=== PATIENT | female | born 1995 | race Caucasian/White ===

== ENCOUNTER 2021-10-05 21:16 | Emergency (ER) | payer MEDICARE, MEDICAID, SELFPAY ==
--- NOTE | ~2021-10-05 | US_ITS ---
EXAMINATION: US OBSTETRICAL ULTRASOUND CLINICAL INFORMATION: Lower abdominal pain, bleeding, rule out ectopic. HCG 5411. Last menstrual period unknown. COMPARISON: CT abdomen and pelvis dated from 11/27/2018. LMP: Unknown. TECHNIQUE: Ultrasound of the maternal pelvis is performed using transabdominal and transvaginal transducers. Transvaginal imaging is performed due to inadequate visualization transabdominally. M-mode Doppler is also performed. FINDINGS: There is a single intrauterine gestational sac with visible yolk sac and no identifiable pole. The gestational sac measures 0.7 cm compatible with a gestational age of 5 weeks and 2 days. There is no significant subchorionic hemorrhage or hematoma. MATERNAL ADNEXA: The right maternal ovary measures 3.1 x 2.2 x 1.9 cm. The left maternal ovary measures 2.6 x 1.4 x 1.8 cm. There is no significant maternal adnexal mass. No maternal pelvic ascites. US/US OB <= 14 weeks fetus IMPRESSION: Single intrauterine gestational sac with a visible yolk sac corresponding to a gestational age of 5 weeks and 2 days. No pole is identified, likely due to early gestational age. Recommend correlation with quantitative hCG and close attention on follow-up. No adnexal masses. No free fluid.
--- NOTE | ~2021-10-05 | US_ITS ---
EXAMINATION: US OBSTETRICAL ULTRASOUND CLINICAL INFORMATION: Lower abdominal pain, bleeding, rule out ectopic. HCG 5411. Last menstrual period unknown. COMPARISON: CT abdomen and pelvis dated from 11/27/2018. LMP: Unknown. TECHNIQUE: Ultrasound of the maternal pelvis is performed using transabdominal and transvaginal transducers. Transvaginal imaging is performed due to inadequate visualization transabdominally. M-mode Doppler is also performed. FINDINGS: There is a single intrauterine gestational sac with visible yolk sac and no identifiable pole. The gestational sac measures 0.7 cm compatible with a gestational age of 5 weeks and 2 days. There is no significant subchorionic hemorrhage or hematoma. MATERNAL ADNEXA: The right maternal ovary measures 3.1 x 2.2 x 1.9 cm. The left maternal ovary measures 2.6 x 1.4 x 1.8 cm. There is no significant maternal adnexal mass. No maternal pelvic ascites. US/US OB transvaginal IMPRESSION: Single intrauterine gestational sac with a visible yolk sac corresponding to a gestational age of 5 weeks and 2 days. No pole is identified, likely due to early gestational age. Recommend correlation with quantitative hCG and close attention on follow-up. No adnexal masses. No free fluid.
[2021-10-05 21:26] VITALS: BP 139/67; PULSE 93; RESP 18; TEMP 36.8; O2SAT 98; BMI 37.8
--- NOTE | 2021-10-05 22:05 | ED_ITS ---
HPI - General Chief complaint: General Medical Stated complaint: Cramping/Preg Time Seen by Provider: 10/05/21 21:43 Source: patient Mode of arrival: ambulatory Limitations: no limitations History of Present Illness HPI Narrative: 26-year-old female presents to the ER with lower abdominal cramping that started yesterday, lower back pain for the last 3 days and new onset of bright red vaginal spotting that started with wiping only today. She states she tested positive for 1 week ago today. She has no idea when her last menstrual cycle was. Her 4 other pregnancies were not complicated and went well. She has negative blood type. She denies urinary symptoms, fever, chills. She did have nausea and vomiting earlier today. Her lower abdominal pain is described as menstrual cramping and it comes and goes. MD Complaint: vaginal bleeding Onset (ago): day(s) (3) Pain Consistency: intermittent Location: pelvis Severity: moderate Severity scale (1-10): 6 Quality: Cramping Relieving factors: none Exacerbating factors: none Associated symptoms: nausea, vomiting and vaginal bleeding Vaginal discharge: none Vaginal bleeding: light Patient : Yes Number of Weeks : unknown OB History - Previous Pregnancies: no complications care: followed by OB Related Data : 5 Para: 4 Total number of abortions (spontaneous and elective): 0 Allergies Allergy/AdvReac Type Severity Reaction Status Date / Time No Known Allergies Allergy Verified 10/05/21 21:26 [No Known Allergies*] Review of Systems Review of Systems: Constitutional: No Fever, No Chills ENT/Mouth: No sore throat, No Rhinorrhea, No Swallowing Difficulty Cardiovascular: No Chest Pain, No SOB Gastrointestinal: + Nausea, + Vomiting, No Diarrhea, + abdominal Pain, No Hematochezia, No Melena Genitourinary: No Dysuria, No Urinary Frequency, No Hematuria, +vaginal spotting Musculoskeletal: + joint pain, + Myalgias Skin: No Skin Lesions, No rash Neuro: No Weakness, No Numbness, No Dizziness, No Headache Psych: + Anxiety/Panic, No Depression Heme/Lymph: No Bruising, No Lymphadenopathy Endocrine: No Polyuria, No Polydipsia PMFSH Past Medical History : 5 Para: 4 Total number of abortions (spontaneous and elective): 0 Social History Social History Patient Tobacco Use Status: Never used Tobacco Use of substances other than those prescribed or required for medical reasons: No Advance Directives: No Advance Directives Information Provided: No Patient : Yes Physical Exam Vital Signs: Vital Signs: Last Vital Signs Temp 99.1 F 10/05/21 22:13 Pulse 79 10/05/21 22:13 Resp 20 10/05/21 22:13 BP 124/82 10/05/21 22:13 Pulse Ox 99 10/05/21 22:13 Body Mass Index 37.8 Appearance: Alert. Oriented X3. No acute distress. Eyes: Pupils equal, round and reactive to light. ENT: Pharynx normal. Neck: Normal inspection. Neck supple. CVS: Normal heart rate and rhythm. Pulses normal. Respiratory: No respiratory distress. Breath sounds normal. Abdomen: Soft and nontender. +BS x4. Pelvic exam deferred Skin: Skin warm and dry. Normal skin color. Normal skin turgor. No rashes. Extremities: No lower extremity edema. Neuro: Oriented X 3. No motor deficit. No sensory deficit. Course Course Course Narrative: 26 y/o who is ?5-7 weeks presents to the ER with low back pain x3 days, lower abdominal cramping and new onset of red vaginal spotting that started today when wiping only. Will get HCG, labs, and pelvic U/S to r/o ectopic. Will likely need rhogam. Reevaluation(s) Reevaluation #1: HCG 5400. Pelvic US showed single IUP at 5 w 2 d gestation. No bleeding with transvaginal examination. Patient is painfree. UA negative. At this time patient is stable for d/c home with close outpatient follow up, monitoring of symptoms at home and plan to return if symptoms worsen. Patient counseled and agrees with plan. MDM - OB/Uterine Contractions Lab Data Result diagrams: 10/05/21 22:11 10/05/21 22:11 Labs: Lab Results 10/05/21 10/05/21 10/05/21 Range/Units 22:11 22:11 22:11 WBC 9.2 (4.8-10.8) X10*3/uL RBC 3.82 L (4.20-5.50) X10*6/uL Hgb 10.9 L (12.0-16.0) g/dl Hct 34.2 L (37.0-47.0) % MCV 89.5 (80.0-98.0) fL MCH 28.5 (27.0-33.0) pg MCHC 31.9 (31.0-35.0) g/dl RDW 16.0 (11.0-16.0) % Plt Count 328 (160-400) X10*3/uL MPV 10.7 (9.4-12.3) fL Immature Gran % (Auto) 0.1 (0.0-0.4) % Neut % (Auto) 61.1 (45-73) % Lymph % (Auto) 29.8 (20-40) % Russell % (Auto) 4.9 (2-11) % Eos % (Auto) 3.7 (0-4) % Baso % (Auto) 0.4 (0-2) % Lymph # (Auto) 2.7 (1.2-4.9) X10*3/uL Russell # (Auto) 0.5 (0.1-1.2) X10*3/uL Eos # (Auto) 0.3 (0.0-0.4) X10*3/uL Baso # (Auto) 0.0 (0.0-0.2) X10*3/uL Abs Immat Gran (auto) 0.01 (0.00-0.03) X10*3/uL Absolute Neuts (auto) 5.6 (2.0-8.3) x10*3/uL Absolute Nucleated RBC 0.000 (0.0-0.012) X10*3/uL Nucleated RBC % (auto) 0.0 (0.0-0.2) /100WBC Sodium 140 (135-145) mmol/L Potassium 3.9 (3.3-5.1) mmol/L Chloride 106 (96-108) mmol/L Carbon Dioxide 26 (22-29) mmol/L Anion Gap 12 (12-20) BUN 10 (9-16) mg/dL Creatinine 0.72 (0.5-1.4) mg/dL Estim Creat Clear Calc 132.4 Estimated GFR > 60 Random Glucose 108 (60-115) mg/dL Calcium 9.4 (8.4-10.2) mg/dL Magnesium 1.8 (1.6-2.6) mg/dL Beta HCG, Quant 5411 mIU/mL Blood Type O Negative Procedures Perimortem Number of Weeks : unknown Discharge Plan Discharge Clinical Impression: , threatened Patient Disposition: Home, Self-Care Instructions: Threatened Miscarriage (ED) Additional Instructions: Your hormone (HCG) was 5411. This is consistent with at 5-7 weeks gestation. Your ultrasound showed a singe fetus in the uterus, estimated at 5 weeks 2 days. You most likely are experiencing implantation bleeding, which is normal. If you have continued bleeding and pain there is concern for possible miscarriage. Recommend folllowing up with your [employer]PERATOR HELPER - you may need to get your hormone repeated to make sure that it is trending upward.
[2021-10-05 22:13] VITALS: BP 124/82; PULSE 79; RESP 20; TEMP 37.3; O2SAT 99
[2021-10-05 22:16] LABS: MANUAL DIFF FLAG NO
[2021-10-05 22:17] LABS: Basophils Percent Auto 0.4 % (0-2); Eosinophils Absolute Auto 0.3 X10*3/uL (0.0-0.4); Eosinophils Percent Auto 3.7 % (0-4); Hematocrit 34.2 % (37.0-47.0); Hemoglobin 10.9 g/dl (12.0-16.0); Imm Gran Abs Auto 0.01 X10*3/uL (0.00-0.03); Imm Gran Pct Auto 0.1 % (0.0-0.4); Lymphocytes Absolute Auto 2.7 X10*3/uL (1.2-4.9); Lymphocytes Percent Auto 29.8 % (20-40); Mean Corpuscular HGB Conc 31.9 g/dl (31.0-35.0); Mean Corpuscular Hemoglobin 28.5 pg (27.0-33.0); Mean Corpuscular Volume 89.5 fL (80.0-98.0); Mean Platelet Volume 10.7 fL (9.4-12.3); Monocytes Absolute Auto 0.5 X10*3/uL (0.1-1.2); Monocytes Percent Auto 4.9 % (2-11); Neutrophils Absolute Auto 5.6 x10*3/uL (2.0-8.3); Neutrophils Percent Auto 61.1 % (45-73); Platelet Count 328 X10*3/uL (160-400); Red Blood Count 3.82 X10*6/uL (4.20-5.50); White Blood Count 9.2 X10*3/uL (4.8-10.8)
[2021-10-05 22:31] LABS: Anion Gap 12 (12-20); Blood Urea Nitrogen 10 mg/dL (9-16); Calcium 9.4 mg/dL (8.4-10.2); Carbon Dioxide 26 mmol/L (22-29); Chloride 106 mmol/L (96-108); Creatinine Clr Calc Pharmacy 132.4; Estimated Glomerular Filt Rate > 60; Glucose Random 108 mg/dL (60-115); Magnesium 1.8 mg/dL (1.6-2.6); Potassium 3.9 mmol/L (3.3-5.1); Sodium 140 mmol/L (135-145)
[2021-10-05 22:38] LABS: HCG Quantitative 5411 mIU/mL
[2021-10-05] MEDS: Rho(D) Immune Globulin 300 MCG SYRINGE IM (23:49)
[2021-10-06 00:08] LABS: Appearance Urine CLEAR; Color Urine YELLOW; Glucose Urine UA NEG (NEG); Leukocyte Esterase Urine NEG (NEG); Nitrite Urine NEG (NEG); Specific Gravity - Urine 1.025 (1.005-1.025); Urine Blood NEG (NEG); Urine Ketones NEG (NEG); Urine Protein NEG (NEG-TRACE)
== END 2021-10-06 00:19 | disposition home or self-care (01) ==
PROVIDERS: Physician Assistant; Emergency Provider Student in an Organized Health Care Education/Training Program
DX: O20.0 Threatened abortion (principal); Z3A.01 Less than 8 weeks gestation of pregnancy
CPT/HCPCS: 36415; 76801; 76817; 80048; 81003; 83735; 84702; 85025; 86900; 86901; 96372; 99284; J2790

== ENCOUNTER 2024-01-30 17:45 | Inpatient (IN) | payer MEDICARE, MEDICAID, SELFPAY ==
--- NOTE | ~2024-01-30 | CT_ITS ---
EXAMINATION: CT ABDOMEN AND PELVIS WITH CONTRAST CLINICAL INFORMATION: right buttock pain, s/p plastic surgery, WBC 24 Additional Information: pain after gluteal surgery, ?abscess, COMPARISON: CT scan abdomen pelvis November 27, 2018 TECHNIQUE: Multidetector volumetric images were obtained from the superior aspect of the liver through the pubic symphysis following administration 85 mL of Omnipaque 350 intravenous contrast. Sagittal and coronal reformatted images were obtained on the technologist's workstation. Oral contrast: No This CT examination was performed using dose optimization techniques as appropriate, variously including the following: *Automated exposure control *Adjustment of mA and/or kV according to patient size (this includes techniques or standardized protocols for targeted exams where dose is matched to indication/reason for exam; i.e. extremities or head) *Use of iterative reconstruction technique DLP: 749 mGy-cm FINDINGS: LUNG BASES: The visualized lung bases are unremarkable. LIVER, GALLBLADDER, AND BILIARY TREE: The liver is normal in size, shape, and attenuation. No focal hepatic lesion or biliary ductal dilatation is present. The gallbladder is unremarkable with no evidence of radiopaque gallstones, gallbladder wall thickening, or obvious pericholecystic inflammatory changes. PANCREAS: Unremarkable. SPLEEN: Unremarkable. ADRENAL GLANDS: Unremarkable. KIDNEYS AND URETERS: The kidneys are normal in size, shape, and attenuation. No hydronephrosis, hydroureter, or calculi seen. No perinephric stranding. BLADDER: Unremarkable. GASTROINTESTINAL TRACT: The small and large bowel are unremarkable. The appendix is nonvisualized. ABDOMINAL WALL: Edema and fluid at the anterior abdominal wall. At the anterior ventral wall there is fat surrounded by fluid deep to the abdominal wall musculature is likely postsurgical. Correlate with history. . There is edema and fluid at the subcutaneous tissue along midline back pain extending into the subcutaneous tissue in the right gluteal region. No drainable fluid collections. LYMPH NODES: Normal. VASCULAR: Unremarkable. PELVIC VISCERA: Unremarkable. OSSEOUS STRUCTURES: Unremarkable. CT/CT abdomen pelvis w IV con IMPRESSION: Postsurgical changes of the anterior abdominal wall. There is edema and fluid at the anterior abdominal wall deep to the abdominal wall musculature. There is edema and fluid at the subcutaneous tissue along midline back pain extending into the subcutaneous tissue in the right gluteal region. No drainable fluid collections. Fleischner guidelines were followed.
[2024-01-30 17:55] VITALS: BP 112/67; PULSE 106; RESP 14; TEMP 36.6; O2SAT 98; BMI 25.7
--- NOTE | 2024-01-30 17:57 | ED.GENADULT ---
HPI - General Adult General Chief complaint: Abdominal Pain Stated complaint: surgery : fever, chills, infection? Time Seen by Provider: 01/30/24 21:02 History of Present Illness HPI narrative: Patient is a 28-year-old female who had plastic surgery in the [place] approximately 3 weeks ago. She had abdominoplasty as well as fat transfers to her buttocks. The patient says that she was doing well until about 2 days ago when she developed nausea and vomiting and chills. She says that her daughter also seemed to have a stomach bug and so at 1st she thought she simply had a stomach bug. She subsequently developed pain in the region of the right buttock and thigh and some drainage from her gluteal fold. At that point she started to be concerned she might be having some complication of her surgery. She called her primary care doctor today and described her symptoms. Her primary care doctor advised her to come to the emergency room. She has had chills but no definite fever. Related Data Home Medications Medication Instructions Recorded Confirmed acetaminophen 500 mg tablet 1,000 mg PO Q6H PRN Pain 01/31/24 01/31/24 Allergies Allergy/AdvReac Type Severity Reaction Status Date / Time No Known Allergies Allergy Verified 10/05/21 21:26 [No Known Allergies*] Review of Systems Review of Systems: Yes all other systems are reviewed and are negative [facility] Past Medical History Medical History (Updated 02/02/24 @ 08:30 by Ricky Hadley MD) Abscess of right buttock Social History Social History Household Members: Family Housing: House Do you presently have visiting nurse or other home services: No Patient Tobacco Use Status: Never used Tobacco Second Hand Smoke Exposure: No service: No Physical Exam ED Vital Signs: Vital Signs - 24 hr 01/30/24 17:55 01/30/24 22:13 01/31/24 00:24 Temperature 98 F 101.0 F H 99.8 F Pulse Rate 106 H 120 H Pulse Rate [Monitor] Respiratory Rate 14 20 Blood Pressure 112/67 105/63 Pulse Oximetry 98 97 Oxygen Delivery Method Room Air Room Air 01/31/24 00:33 01/31/24 00:33 Temperature 99.0 F Pulse Rate 91 Pulse Rate [Monitor] 115 H Respiratory Rate 18 Blood Pressure 117/75 Pulse Oximetry 97 Oxygen Delivery Method Room Air BMI result Body Mass Index 25.7 Const Other: The patient is awake and alert. She is pleasant and cooperative. She does not appear obviously toxic but seemed uncomfortable with movements. HENMT Other: The face is symmetrical. ?Mucous membranes moist. Eyes Other: Pupils are round equal, conjunctivae are clear, extraocular movements intact Neck Other: Moving her neck easily, neck is benign, no swelling Resp Effort & Inspection: normal respiratory effort Auscultation: clear to auscultation bilaterally Cardio Rate: regular rate Rhythm: regular rhythm Heart sounds: S1 normal heart sound present and S2 normal heart sound present GI Other: The patient has a surgical scar in the right lower abdomen. The abdomen on the whole seemed soft and nontender. Skin Other: The patient has surgical scars in the abdomen which look healthy. Neuro Other: The patient is awake, alert, appropriate, normal mental status. Moving all 4 extremities symmetrically. Grossly neurologically intact. Extrem Other: The patient had a large area of erythema and significant tenderness in the region of the right lower buttock extending into the posterior aspect of the right upper thigh. The mid and lower thigh was nontender and benign. Course Course Course Narrative: This is a rapid medical exam: Additional HPI, ROS, PE not included below will be deferred to primary provider. Abdominoplasty, liposuction in [facility] [place] on 01/08/24. Swelling to right buttock since yesterday Medications Administered Generic Name Dose Route Start Last Admin Trade Name Freq PRN Reason Stop Dose Admin Acetaminophen 975 mg 01/31/24 01:45 02/05/24 08:41 Acetaminophen 325 Mg Tablet PO 975 mg Q6H PRN Administration Pain, Moderate(Pain Scale 4-6) Heparin Sodium (Porcine) 5,000 unit 01/31/24 09:00 02/05/24 00:41 Heparin Sodium,Porcine 5,000 Unit/Ml Vial SUBCUT 5,000 unit Q8H SUNITHA Administration Hydromorphone HCl 0.5 mg 01/31/24 06:22 02/04/24 21:02 Hydromorphone Hcl 0.5 Mg/0.5 Ml Syringe IVPUSH 0.5 mg Q4H PRN Administration Pain, Severe (Pain Scale 7-10) Protocol Piperacillin Sod/Tazobactam 50 mls @ 100 mls/hr 01/31/24 04:00 02/05/24 04:35 Sod 3.375 gm/ Sodium Chloride IV Infused Q6H SUNITHA Infusion Vancomycin HCl 1,000 mg/ 270 mls @ 270 mls/hr 02/04/24 05:00 02/05/24 06:47 Sodium Chloride IV Infused Q8H SUNITHA Infusion Ondansetron HCl 4 mg 01/31/24 01:51 02/04/24 14:23 Ondansetron Hcl 4 Mg/2 Ml Vial IVPUSH 4 mg Q6H PRN Administration Nausea and Vomiting Oxycodone HCl 10 mg 02/02/24 07:14 02/04/24 14:23 Oxycodone Hcl Immed Release 5 Mg Tablet PO 10 mg Q4H PRN Administration Pain, Moderate(Pain Scale 4-6) Sodium Chloride 3 ml 01/31/24 08:00 02/04/24 23:32 0.9 % Sodium Chloride Flush 3 Ml Syringe IVFLUSH 3 ml QSHIFT [facility] Administration Discontinued Medications Generic Name Dose Route Start Last Admin Trade Name Freq PRN Reason Stop Dose Admin Acetaminophen 975 mg 01/30/24 23:21 01/30/24 23:32 Acetaminophen 325 Mg Tablet PO 01/30/24 23:22 975 mg ONCE ONE Administration Acetaminophen 650 mg 02/01/24 16:08 02/01/24 17:51 Acetaminophen 325 Mg Tablet PO 02/01/24 16:09 650 mg ONCE ONE Administration Hydromorphone HCl 1 mg 01/30/24 21:42 01/30/24 22:36 Hydromorphone Hcl 1 Mg/Ml Syringe IVPUSH 01/30/24 21:43 1 mg ONCE ONE Administration Protocol Hydromorphone HCl 1 mg 01/30/24 23:21 01/30/24 23:31 Hydromorphone Hcl 1 Mg/Ml Syringe IVPUSH 01/30/24 23:22 1 mg ONCE ONE Administration Protocol Hydromorphone HCl 0.5 mg 02/02/24 14:23 02/02/24 15:35 Hydromorphone Hcl 0.5 Mg/0.5 Ml Syringe IVPUSH 02/02/24 20:23 0.5 mg Q5M PRN Administration Pain, Severe (Pain Scale 7-10) Protocol Sodium Chloride 1,000 mls @ 999 mls/hr 01/30/24 21:15 01/31/24 03:25 Ns IV 01/30/24 22:15 Infused .Q1H1M SUNITHA Infusion Piperacillin Sod/Tazobactam 100 mls @ 200 mls/hr 01/30/24 21:56 01/31/24 03:25 Sod 4.5 gm/ Sodium Chloride IV 01/30/24 22:25 Infused ONCE ONE Infusion Vancomycin HCl 1,000 mg/ 535 mls @ 267.5 mls/hr 01/30/24 21:57 01/31/24 03:25 Vancomycin HCl 750 mg/ Sodium IV 01/30/24 23:56 Infused Chloride ONCE ONE Infusion Lactated Ringer's 1,000 mls @ 999 mls/hr 01/31/24 01:00 01/31/24 02:30 Lr IV 01/31/24 02:00 Infused .Q1H1M SUNITHA Infusion Sodium Chloride 1,000 mls @ 100 mls/hr 01/31/24 01:45 02/02/24 08:48 Ns IVCONT Infused .Q10H SUNITHA Infusion Vancomycin HCl 1,250 mg/ 250 mls @ 166.667 mls/hr 01/31/24 09:00 01/31/24 21:24 Sodium Chloride IV Infused Q12H SUNITHA Infusion Vancomycin HCl 1,250 mg/ 250 mls @ 166.667 mls/hr 02/01/24 08:00 02/02/24 01:25 Sodium Chloride IV Infused Q8H SUNITHA Infusion Sodium Chloride 100 mls @ 100 mls/hr 02/01/24 13:48 02/01/24 21:38 Ns IV 02/01/24 14:47 Infused ONCE ONE Infusion Vancomycin HCl 1,000 mg/ 270 mls @ 270 mls/hr 02/02/24 08:00 02/03/24 16:18 Sodium Chloride IV Infused Q8H SUNITHA Infusion Iron Sucrose 100 mg/ Sodium 55 mls @ 220 mls/hr 02/02/24 14:00 02/02/24 18:33 Chloride IV 02/02/24 14:14 Infused ONCE ONE Infusion Influenza Virus Vaccine 0.5 ml 01/31/24 06:17 01/31/24 06:23 Flu Vacc [id number](6mos Up)/Pf 60 Mcg/0.5 Ml Syringe IM 01/31/24 06:18 Not Given .ONCE ONE Iohexol 85 ml 01/30/24 22:53 01/30/24 22:54 Iohexol 350 Mg/Ml 100 Ml Infus..Btl IV 01/30/24 22:54 85 ml ONCE ONE Administration Ondansetron HCl 4 mg 01/30/24 17:58 01/31/24 03:24 Ondansetron Odt 4 Mg Tab.Rapdis TRANSLINGU 01/30/24 17:59 Not Given ONCE ONE Oxycodone HCl 5 mg 01/31/24 01:51 01/31/24 04:57 Oxycodone Hcl Immed Release 5 Mg Tablet PO 5 mg Q6H PRN Administration Pain, Severe (Pain Scale 7-10) Medical Decision Making Medical Decision Making [facility] Narrative: Patient is a very pleasant and generally healthy 28-year-old who seems to have developed a fairly late complication to cosmetic surgery done 3 weeks ago in the [place]. Specifically she seems to have an area of significant redness and tenderness in the region of the right buttock. She has a very high white count and C-reactive protein but clinically she looks well and her lactate is normal. Blood cultures were drawn. She was started on vancomycin and Zosyn. CT scan shows findings of edema that I suspect is consistent with the cellulitis but no drainable collection was described. The patient was therefore admitted to the hospitalist service. Lab Data 02/03/24 06:02 02/05/24 06:52 Labs: Lab Results 01/30/24 01/30/24 Range/Units 18:34 18:41 WBC 24.1 H (4.8-10.8) X10*3/uL RBC 3.71 L (4.20-5.50) X10*6/uL Hgb 10.2 L (12.0-16.0) g/dl Hct 32.0 L (37.0-47.0) % MCV 86.3 (80.0-98.0) fL MCH 27.5 (27.0-33.0) pg MCHC 31.9 (31.0-35.0) g/dl RDW 16.4 H (11.0-16.0) % Plt Count 1041 H* D (160-400) X10*3/uL MPV 8.9 L (9.4-12.3) fL Immature Gran % (Auto) 1.2 H (0.0-0.4) % Neut % (Auto) 80.5 H (45-73) % Lymph % (Auto) 12.2 L (20-40) % Dewitt % (Auto) 5.3 (2-11) % Eos % (Auto) 0.5 (0-4) % Baso % (Auto) 0.3 (0-2) % Lymph # (Auto) 2.9 (1.2-4.9) X10*3/uL Dewitt # (Auto) 1.3 H (0.1-1.2) X10*3/uL Eos # (Auto) 0.1 (0.0-0.4) X10*3/uL Baso # (Auto) 0.1 (0.0-0.2) X10*3/uL Abs Immat Gran (auto) 0.29 H (0.00-0.03) X10*3/uL Absolute Neuts (auto) 19.4 H (2.0-8.3) x10*3/uL Absolute Nucleated RBC 0.000 (0.0-0.012) X10*3/uL Nucleated RBC % (auto) 0.0 (0.0-0.2) /100WBC Sodium 137 (135-145) mmol/L Potassium 3.9 (3.3-5.1) mmol/L Chloride 99 (96-108) mmol/L Carbon Dioxide 26 (22-29) mmol/L Anion Gap 16 (12-20) BUN 8 L (9-16) mg/dL Creatinine 0.70 (0.5-1.4) mg/dL Estim Creat Clear Calc 110.0 Estimated GFR > 60 Random Glucose 104 (60-115) mg/dL Lactic Acid 1.3 (0.5-2.0) mmol/L Calcium 9.3 (8.4-10.2) mg/dL Total Bilirubin 0.2 (0.0-1.0) mg/dL AST 18 (5-31) U/L ALT 17 (0-31) U/L Alkaline Phosphatase 117 (39-117) U/L Total Creatine Kinase 30 (26-140) U/L C-Reactive Protein 24.21 H (< or = 0.50) mg/dL Total Protein 7.4 (6.5-8.0) g/dL Albumin 3.6 (3.5-5.0) g/dL Beta HCG, Quant < 2 mIU/mL Urine Color Dark Yellow Urine Appearance Clear Urine pH 5.5 (5.0-9.0) Ur Specific [place] >= 1.030 H (1.005-1.025) Urine Protein Trace (Neg-Trace) mg/dL Urine Glucose (UA) Negative (Negative) mg/dL Urine Ketones Trace (Negative) mg/dL Urine Blood Negative (Negative) Urine Nitrite Negative (Negative) Ur Leukocyte Esterase Negative (Negative) Urine RBC 0-2 (0-2) /HPF Urine WBC 0-5 (0-5) /HPF Ur Squamous Epith Cells 3-5 (0-2) /HPF Urine Bacteria None Seen (None Seen) Hyaline Casts 0-2 (0-2) /LPF Urine Yeast Present Influenza Type A (PCR) NEGATIVE (Negative) Influenza Type B (PCR) NEGATIVE (Negative) RSV RNA Qual (PCR) NEGATIVE (Negative) SARS-CoV-2 RNA (RT-PCR) NEGATIVE (Negative) Critical Care Time Critical Care Time Critical Care Time: Yes Total Critical Care Time: 45 Attestation: The patient was critically ill with a high probability of imminent or life-threatening deterioration. ?I spent greater than 30 minutes of discontinuous time evaluating the patient, delivering critical care at the bedside, discussing evaluating data with consultants. ?Critical care time does not include time spent performing separately billable procedures or teaching. ?Time spent performing critical care with 45 minutes. Discharge Plan Discharge Clinical Impression: Cellulitis of right thigh Patient Disposition: Admitted As Inpatient Interventions: Admission Worksheet (ED) Last Done: 01/31/24 03:58 Discharge Date/Time: 01/31/24 06:01
[2024-01-30 18:41] LABS: MANUAL DIFF FLAG NO
--- NOTE | 2024-01-30 18:44 | MHC.EDTECH ---
PATIENT BLOOD DRAWN ,INCLUDING BOTH SETS OF BLOOD CULTURE ,LACTIC ACID ,URINE SAMPLE COLLECTED ,RSV/COVID /FLU SWAB ,ALL SENT TO LAB ,WARM BLANKET GIVEN .
[2024-01-30 18:49] LABS: Basophils Absolute Auto 0.1 X10*3/uL (0.0-0.2); Basophils Percent Auto 0.3 % (0-2); Eosinophils Absolute Auto 0.1 X10*3/uL (0.0-0.4); Eosinophils Percent Auto 0.5 % (0-4); Hemoglobin 10.2 g/dl (12.0-16.0); Imm Gran Abs Auto 0.29 X10*3/uL (0.00-0.03); Imm Gran Pct Auto 1.2 % (0.0-0.4); Lymphocytes Absolute Auto 2.9 X10*3/uL (1.2-4.9); Lymphocytes Percent Auto 12.2 % (20-40); Mean Corpuscular HGB Conc 31.9 g/dl (31.0-35.0); Mean Corpuscular Hemoglobin 27.5 pg (27.0-33.0); Mean Corpuscular Volume 86.3 fL (80.0-98.0); Mean Platelet Volume 8.9 fL (9.4-12.3); Monocytes Absolute Auto 1.3 X10*3/uL (0.1-1.2); Monocytes Percent Auto 5.3 % (2-11); Neutrophils Absolute Auto 19.4 x10*3/uL (2.0-8.3); Neutrophils Percent Auto 80.5 % (45-73); Red Blood Count 3.71 X10*6/uL (4.20-5.50); Red Cell Distribution Width 16.4 % (11.0-16.0); White Blood Count 24.1 X10*3/uL (4.8-10.8)
[2024-01-30 18:52] LABS: Appearance Urine Clear; Color Urine Dark Yellow; Glucose Urine UA Negative (Negative); Leukocyte Esterase Urine Negative (Negative); Nitrite Urine Negative (Negative); PH 5.5 (5.0-9.0); Specific Gravity - Urine >= 1.030 (1.005-1.025); Urine Blood Negative (Negative); Urine Ketones Trace mg/dL (Negative); Urine Protein Trace mg/dL (Neg-Trace)
[2024-01-30 18:56] LABS: Lactic Acid 1.3 mmol/L (0.5-2.0)
[2024-01-30 19:00] LABS: Alanine Aminotransferase 17 U/L (0-31); Albumin Level 3.6 g/dL (3.5-5.0); Alkaline Phosphatase 117 U/L (39-117); Anion Gap 16 (12-20); Aspartate Amino Transferase 18 U/L (5-31); Bilirubin Total 0.2 mg/dL (0.0-1.0); Blood Urea Nitrogen 8 mg/dL (9-16); Calcium 9.3 mg/dL (8.4-10.2); Carbon Dioxide 26 mmol/L (22-29); Chloride 99 mmol/L (96-108); Estimated Glomerular Filt Rate > 60; Glucose Random 104 mg/dL (60-115); Potassium 3.9 mmol/L (3.3-5.1); Sodium 137 mmol/L (135-145); Total Protein 7.4 g/dL (6.5-8.0)
[2024-01-30 19:12] LABS: Bacteria Urine None Seen (None Seen); Hyaline Casts Urine 0-2 /LPF (0-2); RBC Urine 0-2 /HPF (0-2); WBC Urine 0-5 /HPF (0-5)
[2024-01-30 19:23] LABS: Influenza A PCR NEGATIVE (Negative); Influenza B PCR NEGATIVE (Negative); Resp Syncy Virus RNA Qual PCR NEGATIVE (Negative); SARS COV2 PCR INHOUSE NEGATIVE (Negative)
[2024-01-30 20:09] LABS: Platelet Count 1041 X10*3/uL (160-400)
[2024-01-30 21:41] LABS: HCG Quantitative < 2 mIU/mL
[2024-01-30 21:51] LABS: C Reactive Protein 24.21 mg/dL (< or = 0.50)
[2024-01-30 22:13] VITALS: TEMP 38.3
[2024-01-30] MEDS: HYDROmorphone HCl 1 MG/ML SYRINGE IVPUSH ×2 (22:36→23:31)
[2024-01-30] MEDS: 0.9 % Sodium Chloride 1,000 ML 999 ML IV (22:43)
[2024-01-30] MEDS: vancomycin HCL 1,000 MG, vancomycin HCL 750 MG in 0.9 % Sodium Chloride 500 ML 267.5 MG IV (22:54)
[2024-01-30] MEDS: iohexoL 350 MG/ML 100 ML INFUS..BTL 85 ML IV (22:54)
[2024-01-30] MEDS: Piperacillin Sodium/Tazobactam 4.5 GM in 0.9 % Sodium Chloride 100 ML IV (23:09)
[2024-01-30] MEDS: Acetaminophen 325 MG TABLET 975 MG PO (23:32)
[2024-01-31 00:24] VITALS: BP 105/63; PULSE 120; RESP 20; TEMP 37.7; O2SAT 97
[2024-01-31 00:33] VITALS: BP 117/75; PULSE 115; PULSE 91; RESP 18; TEMP 37.2; O2SAT 97
[2024-01-31] MEDS: Lactated Ringers 1,000 ML 999 ML IV (01:25)
--- NOTE | 2024-01-31 02:10 | P.HPHOSP_ITS ---
History of Present Illness Date of Service: 01/31/24 Attending physician on admission: Shana Drake Chief Complaint: Right buttock swelling Mariah Marrufo is a 28 years old woman with no significant past medical history presents to the emergency department complaining of marked right buttock swelling diastolic yesterday. She has been also experiencing events of nausea, vomiting and chills over the last few days which she attributes to a stomach bug. She recently underwent a cosmetic surgery: Abdominoplasty and fat transfer to both buttocks 3 weeks ago at [facility]. She denied any headache, chest pain, shortness on breath, sore throat, abdominal pain, diarrhea or pain with urination. In the ED, she was found to have tachycardia and fever 101.0. Blood pressure and oxygen saturation are normal. Blood workup is remarkable for leukocytosis 24.1, hemoglobin 10.2 and thrombocytosis. CRP is elevated. There is no lactic acidosis. LFTs are normal and there are no electrolyte imbalances. test is negative. Abdomen pelvis CT scan showed postsurgical changes of the anterior abdominal wall, edema and fluid at the anterior abdominal wall deep to the abdominal wall musculature, subcutaneous tissue along the mid line back extending into the subcutaneous tissue in the right gluteal region without drainable fluid collections. ED tx: Vancomycin 1750, NS 1 L bolus, Dilaudid 2 mg IV, Zosyn 4.5 g IV, acetaminophen 975 mg p.o. Review of Systems 2 Review of Systems: All 12 systems were reviewed and normal except as noted in HPI. PMFSH Social History Patient Tobacco Use Status: Never used Tobacco Advance Directives: No Advance Directives Information Provided: No Meds Allergies Allergy/AdvReac Type Severity Reaction Status Date / Time No Known Allergies Allergy Verified 10/05/21 21:26 [No Known Allergies*] Active Medications: Current Medications Acetaminophen (Acetaminophen 325 Mg Tablet) 975 mg PO Q6H PRN PRN Reason: Pain, Moderate(Pain Scale 4-6) Heparin Sodium (Porcine) (Heparin Sodium,Porcine 5,000 Unit/Ml Vial) 5,000 unit SUBCUT Q8H SUNITH[facility] Sodium Chloride (Ns) 1,000 mls @ 100 mls/hr IVCONT .Q10H [facility] Piperacillin Sod/Tazobactam (Sod 3.375 gm/ Sodium Chloride) 50 mls @ 100 mls/hr IV Q6H [facility] Ondansetron HCl (Ondansetron Hcl 4 Mg/2 Ml Vial) 4 mg IVPUSH Q6H PRN PRN Reason: Nausea and Vomiting Oxycodone HCl (Oxycodone Hcl Immed Release 5 Mg Tablet) 5 mg PO Q6H PRN PRN Reason: Pain, Severe (Pain Scale 7-10) Pharmacy Consult (Consult Rx Vancomycin Dosing) 1 each MISCELLANE DAILY PRN PRN Reason: Consult order Sodium Chloride (0.9 % Sodium Chloride Flush 3 Ml Syringe) 3 ml IVFLUSH QSHIFT SUNITHA Physical Exam 2 Vital Signs and Narrative: Vital Signs: Last Vital Signs Temp 99.8 F 01/31/24 00:24 Pulse 120 H 01/31/24 00:24 Resp 20 01/31/24 00:24 BP 105/63 01/31/24 00:24 Pulse Ox 97 01/31/24 00:24 O2 Del Method Room Air 01/31/24 00:24 BMI result Body Mass Index 25.7 Constitutional - Awake and Alert, No apparent distress HEENT - Normal. Heart - tachycardia. Normal rate. No murmur. Lungs - Normal lung expansion, Normal respiratory effort, No respiratory distress, CTA bilaterally Gastrointestinal - NT / ND; +BS; No rebound or guarding Extremities - no calf tenderness bilaterally, no swelling. Right buttock very edematous without erythema or focal induration. Musculoskeletal - Normal inspection, normal ROM Skin - Warm/Dry Neurological - Alert & oriented x3. No focal weakness. Normal speech. Psychological - Appropriate affect Results Labs 01/30/24 18:34 01/30/24 18:34 Labs: Laboratory Results - last 24 hr 01/30/24 01/30/24 18:34 18:41 MCV 86.3 MCH 27.5 MCHC 31.9 RDW 16.4 H Plt Count 1041 H* D MPV 8.9 L Immature Gran % (Auto) 1.2 H Neut % (Auto) 80.5 H Lymph % (Auto) 12.2 L [place] % (Auto) 5.3 Eos % (Auto) 0.5 Baso % (Auto) 0.3 Lymph # (Auto) 2.9 [place] # (Auto) 1.3 H Eos # (Auto) 0.1 Baso # (Auto) 0.1 Abs Immat Gran (auto) 0.29 H Absolute Neuts (auto) 19.4 H Absolute Nucleated RBC 0.000 Nucleated RBC % (auto) 0.0 Anion Gap 16 Estim Creat Clear Calc 110.0 Estimated GFR > 60 Random Glucose 104 Lactic Acid 1.3 Calcium 9.3 Total Bilirubin 0.2 AST 18 ALT 17 Alkaline Phosphatase 117 Total Creatine Kinase 30 C-Reactive Protein 24.21 H Total Protein 7.4 Albumin 3.6 Beta HCG, Quant < 2 Urine Color Dark Yellow Urine Appearance Clear Urine pH 5.5 Ur Specific [place] >= 1.030 H Urine Protein Trace Urine Glucose (UA) Negative Urine Ketones Trace Urine Blood Negative Urine Nitrite Negative Ur Leukocyte Esterase Negative Urine RBC 0-2 Urine WBC 0-5 Ur Squamous Epith Cells 3-5 Urine Bacteria None Seen Hyaline Casts 0-2 Urine Yeast Present Influenza Type A (PCR) NEGATIVE Influenza Type B (PCR) NEGATIVE RSV RNA Qual (PCR) NEGATIVE SARS-CoV-2 RNA (RT-PCR) NEGATIVE Imaging Radiologist's Impressions: Impressions Abdomen/Pelvis CT 01/30/24 22:54 IMPRESSION: Postsurgical changes of the anterior abdominal wall. There is edema and fluid at the anterior abdominal wall deep to the abdominal wall musculature. There is edema and fluid at the subcutaneous tissue along midline back pain extending into the subcutaneous tissue in the right gluteal region. No drainable fluid collections. Fleischner guidelines were followed. Assessment and Plan (1) Cellulitis of right thigh: Status: Acute (2) Reactive thrombocytosis: Status: Acute (3) Sepsis: Qualifiers: Sepsis type: sepsis due to unspecified organism Sepsis acute organ dysfunction status: without acute organ dysfunction Qualified Code(s): A41.9 - Sepsis, unspecified organism Status: Acute Plan Mariah Marrufo is a 28 years old woman admitted with: * Sepsis/SIRS criteria (no severe sepsis) secondary to right buttock cellulitis s/p cosmetic surgery: Fat transfer and abdominoplasty. Admit to hospitalist service. Continue IV fluids. Continue empiric IV antibiotic therapy with vancomycin and Zosyn. Blood cultures were obtained -will follow results. Surgery consult for further recommendations. * Thrombocytosis, reactive. Secondary to above. * Anemia, chronic. Continue to monitor hemoglobin. DVT prophylaxis: Heparin subcut Code status: Full Patient will need hospitalization for at least 2 midnights for sepsis secondary to right buttock cellulitis with IV fluids, close monitoring of vital signs and empiric IV antibiotic therapy.. Quality Stroke Does the patient have a stroke diagnosis?: No VTE Prior VTE?: No VTE Risk Level:: Medical - moderate - high VTE Device Contraindication: Treatment Not Indicated VTE Drug Contraindication: N/A - Med Ordered
[2024-01-31] MEDS: 0.9 % Sodium Chloride 1,000 ML 100 ML IVCONT ×2 (02:30→15:28)
--- NOTE | 2024-01-31 03:24 | PC.NURSE ---
Assumed care of pt, pt not given Zofran as order was for 1800 this evening and pt not needing it at this time
[2024-01-31] MEDS: Piperacillin Sodium/Tazobactam 3.375 GM in 0.9 % Sodium Chloride 50 ML IV ×4 (04:57→21:32)
[2024-01-31] MEDS: oxyCODONE HCl Immed Release 5 MG TABLET PO (04:57)
[2024-01-31 06:00] VITALS: BP 110/57; PULSE 99; RESP 18; TEMP 36.9; O2SAT 98
[2024-01-31 06:09] VITALS: BMI 29.5
[2024-01-31] MEDS: ondansetron HCL 4 MG/2 ML VIAL IVPUSH ×3 (06:24→19:43)
[2024-01-31] MEDS: HYDROmorphone HCl 0.5 MG/0.5 ML SYRINGE IVPUSH ×4 (06:34→21:37)
[2024-01-31 06:43] LABS: MANUAL DIFF FLAG NO
[2024-01-31 06:55] LABS: Basophils Absolute Auto 0.1 X10*3/uL (0.0-0.2); Basophils Percent Auto 0.3 % (0-2); Eosinophils Absolute Auto 0.1 X10*3/uL (0.0-0.4); Eosinophils Percent Auto 0.6 % (0-4); Hematocrit 25.8 % (37.0-47.0); Hemoglobin 8.4 g/dl (12.0-16.0); Imm Gran Abs Auto 0.26 X10*3/uL (0.00-0.03); Imm Gran Pct Auto 1.2 % (0.0-0.4); Lymphocytes Absolute Auto 2.8 X10*3/uL (1.2-4.9); Lymphocytes Percent Auto 12.5 % (20-40); Mean Corpuscular HGB Conc 32.6 g/dl (31.0-35.0); Mean Corpuscular Hemoglobin 28.3 pg (27.0-33.0); Mean Corpuscular Volume 86.9 fL (80.0-98.0); Mean Platelet Volume 8.5 fL (9.4-12.3); Monocytes Absolute Auto 1.3 X10*3/uL (0.1-1.2); Monocytes Percent Auto 5.9 % (2-11); Neutrophils Absolute Auto 17.5 x10*3/uL (2.0-8.3); Neutrophils Percent Auto 79.5 % (45-73); Platelet Count 780 X10*3/uL (160-400); Red Blood Count 2.97 X10*6/uL (4.20-5.50); Red Cell Distribution Width 16.4 % (11.0-16.0)
[2024-01-31 07:03] VITALS: BP 119/63; PULSE 100; RESP 14; TEMP 36.5; O2SAT 98
[2024-01-31 07:38] LABS: Alanine Aminotransferase 13 U/L (0-31); Albumin Level 2.8 g/dL (3.5-5.0); Alkaline Phosphatase 86 U/L (39-117); Anion Gap 11 (12-20); Aspartate Amino Transferase 22 U/L (5-31); Bilirubin Total 0.2 mg/dL (0.0-1.0); Blood Urea Nitrogen 6 mg/dL (9-16); Calcium 8.1 mg/dL (8.4-10.2); Carbon Dioxide 24 mmol/L (22-29); Chloride 106 mmol/L (96-108); Creatinine Clr Calc Pharmacy 152.2; Estimated Glomerular Filt Rate > 60; Glucose Random 96 mg/dL (60-115); Potassium 3.6 mmol/L (3.3-5.1); Sodium 137 mmol/L (135-145); Total Protein 5.8 g/dL (6.5-8.0)
[2024-01-31] MEDS: 0.9 % Sodium Chloride Flush 3 ML SYRINGE IVFLUSH ×2 (08:51→15:29)
[2024-01-31] MEDS: Heparin Sodium,Porcine 5,000 UNIT/ML VIAL 5000 UNIT SUBCUT ×2 (08:51→17:07)
[2024-01-31] MEDS: vancomycin HCL 1,250 MG in 0.9 % Sodium Chloride 250 ML 166.67 MG IV ×2 (08:52→19:43)
--- NOTE | 2024-01-31 11:41 | P.CONGS_ITS ---
History of Present Illness Consult details Consult date: 01/31/24 Requesting physician: Halie Ambrosio Narrative: 28 year old female went to [facility] for abdominoplasty and bilateral buttock fat injections 3 weeks ago and then noted for the last 3 days the right buttock was more tender and swollen - came to the hospital and work up showed fluid and induration and elevated wbc. She was admitted and being treated for cellulitis with iv antibiotics. Pt denies doing anything that made it worse- no trauma etc. The left side is fine Review of Systems 2 Review of Systems: Yes all other systems are reviewed and are negative [facility] Social History Social History Household Members: Family Housing: House Do you presently have visiting nurse or other home services: No Patient Tobacco Use Status: Never used Tobacco service: No Meds Allergies Allergy/AdvReac Type Severity Reaction Status Date / Time No Known Allergies Allergy Verified 10/05/21 21:26 [No Known Allergies*] Active Medications: Current Medications Acetaminophen (Acetaminophen 325 Mg Tablet) 975 mg PO Q6H PRN PRN Reason: Pain, Moderate(Pain Scale 4-6) Heparin Sodium (Porcine) (Heparin Sodium,Porcine 5,000 Unit/Ml Vial) 5,000 unit SUBCUT Q8H [facility] Last Admin: 01/31/24 08:51 Dose: 5,000 unit Hydromorphone HCl (Hydromorphone Hcl 0.5 Mg/0.5 Ml Syringe) 0.5 mg IVPUSH Q4H PRN; Protocol PRN Reason: Pain, Severe (Pain Scale 7-10) Last Admin: 01/31/24 11:15 Dose: 0.5 mg Sodium Chloride (Ns) 1,000 mls @ 100 mls/hr IVCONT .Q10H [facility] Last Infusion: 01/31/24 08:56 Dose: 0 mls/hr Piperacillin Sod/Tazobactam (Sod 3.375 gm/ Sodium Chloride) 50 mls @ 100 mls/hr IV Q6H [facility] Last Admin: 01/31/24 11:16 Dose: 100 mls/hr Vancomycin HCl 1,250 mg/ (Sodium Chloride) 250 mls @ 166.667 mls/hr IV Q12H [facility] Last Infusion: 01/31/24 10:43 Dose: Infused Ondansetron HCl (Ondansetron Hcl 4 Mg/2 Ml Vial) 4 mg IVPUSH Q6H PRN PRN Reason: Nausea and Vomiting Last Admin: 01/31/24 06:24 Dose: 4 mg Pharmacy Consult (Consult Rx Vancomycin Dosing) 1 each MISCELLANE DAILY PRN PRN Reason: Consult order Sodium Chloride (0.9 % Sodium Chloride Flush 3 Ml Syringe) 3 ml IVFLUSH QSHIFT [facility]ITH[facility] Last Admin: 01/31/24 08:51 Dose: 3 ml Home Medications Medication Instructions Recorded Confirmed Last Taken Type acetaminophen 500 mg tablet 1,000 mg PO Q6H PRN Pain 01/31/24 01/31/24 Unknown History Physical Exam 2 Vital Signs: Vital Signs: Last Vital Signs Temp 97.7 F 01/31/24 07:03 Pulse 100 01/31/24 07:03 Resp 14 01/31/24 07:03 BP 119/63 01/31/24 07:03 Pulse Ox 98 01/31/24 07:03 O2 Del Method Room Air 01/31/24 07:03 BMI result Body Mass Index 29.5 Const: General: cooperative, healthy appearing and comfortable O rientation/consciousness: patient oriented x3 Skin: Other: right buttock area with central aspect going to medial area and near anus with a large indurated and firm area tender - no skin necrosis and no area of true fluctuance. left side is soft. abdominoplasty anterior area looks good closed and no drainage Neuro: General: patient oriented x3 Psych: Appearance: grossly normal Mental Status: mental status grossly normal Speech and movement: Normal speech and movement present Affect: n ormal affect Thought content: Normal thought content present Insight: Good insight present (Psych) Judgement: Good judgement present (Psych) Results Labs 01/31/24 06:34 01/31/24 06:34 Labs: Abnormal lab results 01/30/24 01/30/24 01/31/24 Range/Units 18:34 18:41 06:34 WBC 24.1 H 22.0 H (4.8-10.8) X10*3/uL RBC 3.71 L 2.97 L (4.20-5.50) X10*6/uL Hgb 10.2 L 8.4 L (12.0-16.0) g/dl Hct 32.0 L 25.8 L (37.0-47.0) % RDW 16.4 H 16.4 H (11.0-16.0) % Plt Count 1041 H* D 780 H D (160-400) X10*3/uL MPV 8.9 L 8.5 L (9.4-12.3) fL Immature Gran % (Auto) 1.2 H 1.2 H (0.0-0.4) % Neut % (Auto) 80.5 H 79.5 H (45-73) % Lymph % (Auto) 12.2 L 12.5 L (20-40) % [place] # (Auto) 1.3 H 1.3 H (0.1-1.2) X10*3/uL Abs Immat Gran (auto) 0.29 H 0.26 H (0.00-0.03) X10*3/uL Absolute Neuts (auto) 19.4 H 17.5 H (2.0-8.3) x10*3/uL Anion Gap 11 L (12-20) BUN 8 L 6 L (9-16) mg/dL Calcium 8.1 L D (8.4-10.2) mg/dL C-Reactive Protein 24.21 H (< or = 0.50) mg/dL Total Protein 5.8 L (6.5-8.0) g/dL Albumin 2.8 L (3.5-5.0) g/dL Ur Specific [place] >= 1.030 H (1.005-1.025) Short CBC 01/30/24 01/31/24 Range/Units 18:34 06:34 WBC 24.1 H 22.0 H (4.8-10.8) X10*3/uL Hgb 10.2 L 8.4 L (12.0-16.0) g/dl Hct 32.0 L 25.8 L (37.0-47.0) % Plt Count 1041 H* D 780 H D (160-400) X10*3/uL BMP 01/30/24 01/31/24 18:34 06:34 Sodium 137 137 Potassium 3.9 3.6 Chloride 99 106 Carbon Dioxide 26 24 BUN 8 L 6 L Creatinine 0.70 0.54 Calcium 9.3 8.1 L D Cardiac Enzymes 01/30/24 Range/Units 18:34 Total Creatine Kinase 30 (26-140) U/L Liver Function 01/30/24 01/31/24 Range/Units 18:34 06:34 Total Bilirubin 0.2 0.2 (0.0-1.0) mg/dL AST 18 22 (5-31) U/L ALT 17 13 (0-31) U/L Alkaline Phosphatase 117 86 (39-117) U/L Albumin 3.6 2.8 L (3.5-5.0) g/dL Urine 01/30/24 Range/Units 18:41 Urine Color Dark Yellow Urine Appearance Clear Urine pH 5.5 (5.0-9.0) Ur Specific [place] >= 1.030 H (1.005-1.025) Urine Protein Trace (Neg-Trace) mg/dL Urine Glucose (UA) Negative (Negative) mg/dL All other labs normal. Imaging CT scan - pelvis: report reviewed and image reviewed Additional studies: EXAMINATION: CT ABDOMEN AND PELVIS WITH CONTRAST CLINICAL INFORMATION: right buttock pain, s/p plastic surgery, WBC 24 Additional Information: pain after gluteal surgery, ?abscess, COMPARISON: CT scan abdomen pelvis November 27, 2018 TECHNIQUE: Multidetector volumetric images were obtained from the superior aspect of the liver through the pubic symphysis following administration 85 mL of Omnipaque 350 intravenous contrast. Sagittal and coronal reformatted images were obtained on the technologist's workstation. Oral contrast: No This CT examination was performed using dose optimization techniques as appropriate, variously including the following: *Automated exposure control *Adjustment of mA and/or kV according to patient size (this includes techniques or standardized protocols for targeted exams where dose is matched to indication/reason for exam; i.e. extremities or head) *Use of iterative reconstruction technique DLP: 749 mGy-cm FINDINGS: LUNG BASES: The visualized lung bases are unremarkable. LIVER, GALLBLADDER, AND BILIARY TREE: The liver is normal in size, shape, and attenuation. No focal hepatic lesion or biliary ductal dilatation is present. The gallbladder is unremarkable with no evidence of radiopaque gallstones, gallbladder wall thickening, or obvious pericholecystic inflammatory changes. PANCREAS: Unremarkable. SPLEEN: Unremarkable. ADRENAL GLANDS: Unremarkable. KIDNEYS AND URETERS: The kidneys are normal in size, shape, and attenuation. No hydronephrosis, hydroureter, or calculi seen. No perinephric stranding. BLADDER: Unremarkable. GASTROINTESTINAL TRACT: The small and large bowel are unremarkable. The appendix is nonvisualized. ABDOMINAL WALL: Edema and fluid at the anterior abdominal wall. At the anterior ventral wall there is fat surrounded by fluid deep to the abdominal wall musculature is likely postsurgical. Correlate with history. . There is edema and fluid at the subcutaneous tissue along midline back pain extending into the subcutaneous tissue in the right gluteal region. No drainable fluid collections. LYMPH NODES: Normal. VASCULAR: Unremarkable. PELVIC VISCERA: Unremarkable. OSSEOUS STRUCTURES: Unremarkable. CT/CT abdomen pelvis w IV con IMPRESSION: Postsurgical changes of the anterior abdominal wall. There is edema and fluid at the anterior abdominal wall deep to the abdominal wall musculature. There is edema and fluid at the subcutaneous tissue along midline back pain extending into the subcutaneous tissue in the right gluteal region. No drainable fluid collections. Fleischner guidelines were followed. 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 She agrees with the plan Procedures Date of Service Date of Service: 01/31/24
--- NOTE | 2024-01-31 12:06 | MHC.CM.PN ---
IMM 01/31/24 Female 28 DX R Buttocks Cellulitis. She lives with her 4 kids. She is independent with all functional mobility. She declined the offer to document a HCP. DP home self care. She will arrange for private transport.
[2024-01-31] MEDS: Acetaminophen 325 MG TABLET 975 MG PO ×2 (12:07→19:46)
--- NOTE | 2024-01-31 13:04 | PM.EVENT ---
Event Note Date of Service: 01/31/24 Event Note: seen and examined this morning follow up for right buttock cellulitis Patient resting in bed comfortably, in no acute distress. Reporting right-sided buttock discomfort right buttock with generalized swelling and erythema; no fluctuance or open wounds, no drainage Sepsis/SIRS criteria (no severe sepsis) secondary to right buttock cellulitis s/p cosmetic surgery: Tachycardia improving, afebrile this morning Continue empiric IV antibiotic therapy with vancomycin and Zosyn Blood cultures pending Surgery following- no fluid collection for drainage at this time Thrombocytosis, reactive. Secondary to above, trending down follow CBC normocytic Anemia, acute on chronic. likely due to component of dilution follow CBC closely Time Spent With Patient Time: Total time managing care of this patient today ____ minutes.
[2024-01-31 15:19] VITALS: BP 111/59; PULSE 95; RESP 18; TEMP 36.2; O2SAT 97
[2024-01-31 20:00] VITALS: BP 119/66; PULSE 99; RESP 18; TEMP 37.7; O2SAT 99
[2024-02-01] VITALS (9 sets, daily range): BP systolic 111–121; BP diastolic 58–73; PULSE 90–102; RESP 16–18; TEMP 36.3–37.3; O2SAT 95–98
[2024-02-01] MEDS: 0.9 % Sodium Chloride 1,000 ML 100 ML IVCONT ×2 (01:59→10:58)
[2024-02-01] MEDS: HYDROmorphone HCl 0.5 MG/0.5 ML SYRINGE IVPUSH ×5 (01:59→23:45)
[2024-02-01] MEDS: Piperacillin Sodium/Tazobactam 3.375 GM in 0.9 % Sodium Chloride 50 ML IV ×4 (02:03→21:55)
[2024-02-01 07:12] LABS: MANUAL DIFF FLAG NO
[2024-02-01 07:14] LABS: Basophils Absolute Auto 0.1 X10*3/uL (0.0-0.2); Basophils Percent Auto 0.3 % (0-2); Eosinophils Absolute Auto 0.1 X10*3/uL (0.0-0.4); Eosinophils Percent Auto 0.7 % (0-4); Hematocrit 24.1 % (37.0-47.0); Hemoglobin 7.9 g/dl (12.0-16.0); Imm Gran Abs Auto 0.25 X10*3/uL (0.00-0.03); Imm Gran Pct Auto 1.4 % (0.0-0.4); Lymphocytes Absolute Auto 2.3 X10*3/uL (1.2-4.9); Lymphocytes Percent Auto 12.9 % (20-40); Mean Corpuscular HGB Conc 32.8 g/dl (31.0-35.0); Mean Corpuscular Hemoglobin 28.5 pg (27.0-33.0); Mean Platelet Volume 8.1 fL (9.4-12.3); Monocytes Absolute Auto 1.1 X10*3/uL (0.1-1.2); Monocytes Percent Auto 5.8 % (2-11); Neutrophils Absolute Auto 14.3 x10*3/uL (2.0-8.3); Neutrophils Percent Auto 78.9 % (45-73); Platelet Count 674 X10*3/uL (160-400); Red Blood Count 2.77 X10*6/uL (4.20-5.50); Red Cell Distribution Width 16.5 % (11.0-16.0); White Blood Count 18.1 X10*3/uL (4.8-10.8)
[2024-02-01 07:27] LABS: Vancomycin Random 7.6 mcg/mL (15-20)
[2024-02-01 07:28] LABS: Anion Gap 10 (12-20); Blood Urea Nitrogen 4 mg/dL (9-16); Calcium 8.3 mg/dL (8.4-10.2); Carbon Dioxide 27 mmol/L (22-29); Chloride 104 mmol/L (96-108); Creatinine Clr Calc Pharmacy 149.4; Estimated Glomerular Filt Rate > 60; Glucose Random 101 mg/dL (60-115); Potassium 3.7 mmol/L (3.3-5.1); Sodium 137 mmol/L (135-145)
--- NOTE | 2024-02-01 07:35 | HE.PHANOTE ---
RE VANCO DOSING INCREASING FREQUENCY FROM Q12 TO Q8 HOURS WITH SAME DOSE OF 1250 MG DUE TO TROUGH OF ONLY 7.6. EXPECTED AUC WITH THIS DOSE IS 524 AND WILL GET NEW LEVEL 02/01 @0600.
[2024-02-01 08:02] LABS: Alanine Aminotransferase 16 U/L (0-31); Albumin Level 2.7 g/dL (3.5-5.0); Alkaline Phosphatase 97 U/L (39-117); Aspartate Amino Transferase 24 U/L (5-31); Bilirubin Direct < 0.2 mg/dL (0.0-0.5); Bilirubin Total 0.1 mg/dL (0.0-1.0); Iron 9 mcg/dL (30-160); Lactate Dehydrogenase 143 U/L (122-220); Percent Iron Saturation 6 % (15-50); Total Iron Binding Capacity 140 mcg/dL (228-428); Total Protein 6.1 g/dL (6.5-8.0); Unsaturated Iron Binding 131 ug/dL
[2024-02-01 08:21] LABS: Ferritin 142 ng/mL (10-122)
[2024-02-01] MEDS: vancomycin HCL 1,250 MG in 0.9 % Sodium Chloride 250 ML 166.67 MG IV ×2 (08:39→16:05)
[2024-02-01] MEDS: Heparin Sodium,Porcine 5,000 UNIT/ML VIAL 5000 UNIT SUBCUT ×2 (08:42→18:01)
[2024-02-01] MEDS: 0.9 % Sodium Chloride Flush 3 ML SYRINGE IVFLUSH ×2 (08:43→17:40)
[2024-02-01] MEDS: Acetaminophen 325 MG TABLET 975 MG PO (08:46)
[2024-02-01 11:10] LABS: Immature Retic Fraction 24.2 % (3.0-15.9); Retic HGB Equivalent 22.4 pg (30.0-35.0); Reticulocyte Percent 1.3 % (0.5-1.8); Reticulocytes Absolute 0.037 X10*6/uL (0.026-0.095)
--- NOTE | 2024-02-01 12:42 | PC.NURSE ---
1130: Pt with leaking of yellow/brown liquid from upper porton of butt crack. Gauze place into crease to absorb, Halie Ambrosio notified. Will discuss with Dr Quiros.
[2024-02-01] MEDS: ondansetron HCL 4 MG/2 ML VIAL IVPUSH (13:31)
--- NOTE | 2024-02-01 13:35 | PM.PNGS ---
Subjective Subjective Date of Service: 02/01/24 Interval history: Patient is feeling much better today compared to yesterday. Says the buttock area is softer and feels more comfortable and she was actually out of bed into the chair and then noticed there was some draining coming out. \she denies any fevers or chills white blood count is better at 18 Physical Exam Vital Signs: Vital Signs: Last Vital Signs Temp 97.4 F 02/01/24 08:00 Pulse 91 02/01/24 08:00 Resp 16 02/01/24 08:00 BP 116/64 02/01/24 08:00 Pulse Ox 95 02/01/24 08:00 O2 Del Method Room Air 02/01/24 08:00 BMI result Body Mass Index 29.5 Skin: Other: Right buttock cheek is much softer than before and along the midline crack a little bit to the left superior aspect there has a small opening with some drainage of yellow we liquid which looks like it could be some fat necrosis maybe a little more purulent but hard to tell as not much is coming out with squeezing the area Objective Data Active Medications Acetaminophen (Acetaminophen 325 Mg Tablet) 975 mg PO Q6H PRN PRN Reason: Pain, Moderate(Pain Scale 4-6) Last Admin: 02/01/24 08:46 Dose: 975 mg Documented By: PAT Heparin Sodium (Porcine) (Heparin Sodium,Porcine 5,000 Unit/Ml Vial) 5,000 unit SUBCUT Q8H [facility] Last Admin: 02/01/24 08:42 Dose: 5,000 unit Documented By: PAT Hydromorphone HCl (Hydromorphone Hcl 0.5 Mg/0.5 Ml Syringe) 0.5 mg IVPUSH Q4H PRN; Protocol PRN Reason: Pain, Severe (Pain Scale 7-10) Last Admin: 02/01/24 05:52 Dose: 0.5 mg Documented By: ZHANG Sodium Chloride (Ns) 1,000 mls @ 100 mls/hr IVCONT .Q10H [facility] Last Admin: 02/01/24 10:58 Dose: 100 mls/hr Documented By: PAT Piperacillin Sod/Tazobactam (Sod 3.375 gm/ Sodium Chloride) 50 mls @ 100 mls/hr IV Q6H [facility] Last Infusion: 02/01/24 11:13 Dose: Infused Documented By: PAT Vancomycin HCl 1,250 mg/ (Sodium Chloride) 250 mls @ 166.667 mls/hr IV Q8H [facility] Last Infusion: 02/01/24 10:33 Dose: Infused Documented By: PAT Ondansetron HCl (Ondansetron Hcl 4 Mg/2 Ml Vial) 4 mg IVPUSH Q6H PRN PRN Reason: Nausea and Vomiting Last Admin: 01/31/24 19:43 Dose: 4 mg Documented By: ZHANG Pharmacy Consult (Consult Rx Vancomycin Dosing) 1 each MISCELLANE DAILY PRN PRN Reason: Consult order Sodium Chloride (0.9 % Sodium Chloride Flush 3 Ml Syringe) 3 ml IVFLUSH QSHIFT [facility] Last Admin: 02/01/24 08:43 Dose: 3 ml Documented By: PAT Labs 02/01/24 07:07 02/01/24 07:07 Labs: Laboratory Results - last 24 hr 02/01/24 07:07 MCV 87.0 MCH 28.5 MCHC 32.8 RDW 16.5 H Plt Count 674 H MPV 8.1 L Immature Gran % (Auto) 1.4 H Neut % (Auto) 78.9 H Lymph % (Auto) 12.9 L [place] % (Auto) 5.8 Eos % (Auto) 0.7 Baso % (Auto) 0.3 Lymph # (Auto) 2.3 [place] # (Auto) 1.1 Eos # (Auto) 0.1 Baso # (Auto) 0.1 Abs Immat Gran (auto) 0.25 H Absolute Neuts (auto) 14.3 H Absolute Nucleated RBC 0.000 Nucleated RBC % (auto) 0.0 Absolute Retic 0.037 Percent Retic 1.3 Immature Retic Fraction 24.2 H Retic Hgb Equivalent 22.4 L Anion Gap 10 L Estim Creat Clear Calc 149.4 Estimated GFR > 60 Random Glucose 101 Calcium 8.3 L Iron 9 L TIBC 140 L % Saturation 6 L Unsat Iron Binding 131 Ferritin 142 H Total Bilirubin 0.1 Direct Bilirubin < 0.2 AST 24 ALT 16 Alkaline Phosphatase 97 Lactate Dehydrogenase 143 Total Protein 6.1 L Albumin 2.7 L Random Vancomycin 7.6 L Microbiology Microbiology Results: Microbiology 01/30/24 18:35 Blood Culture - Preliminary Blood - Venous No growth after 24 hours. 01/30/24 18:34 Blood Culture - Preliminary Blood - Venous No growth after 24 hours. Procedures Date of Service Date of Service: 02/01/24 Progress Note: A&P Assessment and plan (1) Cellulitis of right thigh: Status: Acute Assessment and Plan: Overall patient has improved on IV antibiotics and the areas softer. There is more drainage coming out now and at this point just encourage it with warm compresses and squeezing the area. Seeing that she received the fat transplantation some of this material may be more fat necrosis liquid material with a little infection. Her white count is still high but it is improved and she feels better. Plans to continue the dressings encourage the drainage and at this point the indications actually open up the wounds and then incisions more to allow for fluids drain. This may change according to her clinical exam. She understands and agrees with the above plan Time Spent With Patient Time: Total time managing care of this patient today ____ minutes. Quality Stroke Does the patient have a stroke diagnosis?: No VTE Prior VTE?: No VTE Risk Level:: Medical - moderate - high VTE Device Contraindication: Treatment Not Indicated VTE Drug Contraindication: N/A - Med Ordered
--- NOTE | 2024-02-01 13:37 | HO.PM.IMPN ---
Subjective Subjective Date of Service: 02/01/24 Interval History: seen and examined this morning follow up for buttock infection still with pain right buttock no fever or chills Review of Systems Review of Systems: Yes all other systems are reviewed and are negative Constitutional Constitutional: Denies chills and Denies fever(s) Physical Exam Vital Signs: Vital Signs: Last Vital Signs Temp 97.4 F 02/01/24 08:00 Pulse 91 02/01/24 08:00 Resp 16 02/01/24 08:00 BP 116/64 02/01/24 08:00 Pulse Ox 95 02/01/24 08:00 O2 Del Method Room Air 02/01/24 08:00 BMI result Body Mass Index 29.5 Const: General: cooperative, comfortable, no acute distress, alert and awake Nutritional Appearance: average body habitus Orientation/consciousness: patient oriented x3 Resp: Effort & Inspection: normal respiratory effort, able to speak in complete sentences, no respiratory distress and no use of accessory muscles Cardio: Rate: regular rate GI: Other: abdominoplasty - no redness or drainage right buttock swelling improving, less firm; no area of fluctuance Inspection: No distended Palpation (GI): Soft to palpation and nontender Neuro: General: patient oriented x3, moves all extremities and CN's II-XI intact bilaterally Extrem: General: Yes no pedal edema Objective Data Active Medications Acetaminophen (Acetaminophen 325 Mg Tablet) 975 mg PO Q6H PRN PRN Reason: Pain, Moderate(Pain Scale 4-6) Last Admin: 02/01/24 08:46 Dose: 975 mg Documented By: PAT Heparin Sodium (Porcine) (Heparin Sodium,Porcine 5,000 Unit/Ml Vial) 5,000 unit SUBCUT Q8H [facility] Last Admin: 02/01/24 08:42 Dose: 5,000 unit Documented By: PAT Hydromorphone HCl (Hydromorphone Hcl 0.5 Mg/0.5 Ml Syringe) 0.5 mg IVPUSH Q4H PRN; Protocol PRN Reason: Pain, Severe (Pain Scale 7-10) Last Admin: 02/01/24 05:52 Dose: 0.5 mg Documented By: ZHANG Sodium Chloride (Ns) 1,000 mls @ 100 mls/hr IVCONT .Q10H [facility] Last Admin: 02/01/24 10:58 Dose: 100 mls/hr Documented By: PAT Piperacillin Sod/Tazobactam (Sod 3.375 gm/ Sodium Chloride) 50 mls @ 100 mls/hr IV Q6H [facility] Last Infusion: 02/01/24 11:13 Dose: Infused Documented By: PAT Vancomycin HCl 1,250 mg/ (Sodium Chloride) 250 mls @ 166.667 mls/hr IV Q8H [facility] Last Infusion: 02/01/24 10:33 Dose: Infused Documented By: PAT Ondansetron HCl (Ondansetron Hcl 4 Mg/2 Ml Vial) 4 mg IVPUSH Q6H PRN PRN Reason: Nausea and Vomiting Last Admin: 01/31/24 19:43 Dose: 4 mg Documented By: ZHANG Pharmacy Consult (Consult Rx Vancomycin Dosing) 1 each MISCELLANE DAILY PRN PRN Reason: Consult order Sodium Chloride (0.9 % Sodium Chloride Flush 3 Ml Syringe) 3 ml IVFLUSH QSHIFT [facility] Last Admin: 02/01/24 08:43 Dose: 3 ml Documented By: PAT Labs 02/01/24 07:07 02/01/24 07:07 Labs: Laboratory Results - last 24 hr 02/01/24 07:07 MCV 87.0 MCH 28.5 MCHC 32.8 RDW 16.5 H Plt Count 674 H MPV 8.1 L Immature Gran % (Auto) 1.4 H Neut % (Auto) 78.9 H Lymph % (Auto) 12.[address] [place] % (Auto) 5.8 Eos % (Auto) 0.7 Baso % (Auto) 0.3 Lymph # (Auto) 2.3 [place] # (Auto) 1.1 Eos # (Auto) 0.1 Baso # (Auto) 0.1 Abs Immat Gran (auto) 0.25 H Absolute Neuts (auto) 14.3 H Absolute Nucleated RBC 0.000 Nucleated RBC % (auto) 0.0 Absolute Retic 0.037 Percent Retic 1.3 Immature Retic Fraction 24.2 H Retic Hgb Equivalent 22.4 L Anion Gap 10 L Estim Creat Clear Calc 149.4 Estimated GFR > 60 Random Glucose 101 Calcium 8.3 L Iron 9 L TIBC 140 L % Saturation 6 L Unsat Iron Binding 131 Ferritin 142 H Total Bilirubin 0.1 Direct Bilirubin < 0.2 AST 24 ALT 16 Alkaline Phosphatase 97 Lactate Dehydrogenase 143 Total Protein 6.1 L Albumin 2.7 L Random Vancomycin 7.6 L Microbiology Microbiology Results: Microbiology 01/30/24 18:35 Blood Culture - Preliminary Blood - Venous No growth after 24 hours. 01/30/24 18:34 Blood Culture - Preliminary Blood - Venous No growth after 24 hours. Assessment and Plan (1) Reactive thrombocytosis: Status: Acute (2) Anemia: Status: Acute Plan This is a 28 year old female who presents with chills and swelling of right buttock three weeks after abdominoplasty and fat transfer to b/l buttocks done in the [facility] [place] Sepsis secondary to right buttock cellulitis s/p cosmetic surgery: fever, tachycardia improved, white count trending down erythema and swelling of right buttock improving imaging with no fluid collection to drain Continue empiric IV antibiotic therapy with vancomycin and Zosyn Blood cultures negative x 24 hours Surgery following Acute on chronic normocytic anemia reports history of iron deficiency requiring blood transfusions last transfusion after surgery three weeks ago H/H trending down, will check iron studies consider blood transfusion follow CBC Thrombocytosis, reactive. Secondary to above, trending down follow CBC normocytic Anemia, acute on chronic. likely due to component of dilution follow CBC closely dvt ppx - heparin attending - dr. arora requires ongoing inpatient stay for management of right buttock infection and anemia Quality Stroke Does the patient have a stroke diagnosis?: No VTE Prior VTE?: No VTE Risk Level:: Medical - moderate - high VTE Device Contraindication: Treatment Not Indicated VTE Drug Contraindication: N/A - Med Ordered
[2024-02-01] MEDS: Acetaminophen 325 MG TABLET 650 MG PO (17:51)
--- NOTE | 2024-02-01 18:11 | PC.NURSE ---
Pt mobility improved from yesterday. Pt able to ambulate to BR and sit in recliner today. Tolerating some solid foods in small amounts. Medicated earlier in shift with dilaudid for pain and zofran for nausea. No further drainage from buttock crack this evening.
[2024-02-01] MEDS: vancomycin HCL 1,250 MG in 0.9 % Sodium Chloride 250 ML 166.66 MG IV (23:46)
[2024-02-02] VITALS (10 sets, daily range): BP systolic 115–137; BP diastolic 62–96; PULSE 82–99; RESP 16–17; TEMP 36.1–37.2; O2SAT 96–100
[2024-02-02] MEDS: Heparin Sodium,Porcine 5,000 UNIT/ML VIAL 5000 UNIT SUBCUT ×3 (01:15→18:10)
[2024-02-02] MEDS: Acetaminophen 325 MG TABLET 975 MG PO ×2 (01:15→07:07)
[2024-02-02] MEDS: ondansetron HCL 4 MG/2 ML VIAL IVPUSH ×2 (01:19→11:01)
[2024-02-02] MEDS: Piperacillin Sodium/Tazobactam 3.375 GM in 0.9 % Sodium Chloride 50 ML IV ×4 (04:00→22:00)
[2024-02-02] MEDS: HYDROmorphone HCl 0.5 MG/0.5 ML SYRINGE IVPUSH ×5 (04:00→22:11)
[2024-02-02 06:28] LABS: Vancomycin Random 17.2 mcg/mL (15-20)
[2024-02-02 06:31] LABS: Creatinine Clr Calc Pharmacy 158.1; Estimated Glomerular Filt Rate > 60
--- NOTE | 2024-02-02 06:41 | HE.PHANOTE ---
RE: vanco Trough on 02/01 came back at 17.2; decreased dose to 1000mg Q8H with predicted trough of 11.4 mg/L, AUC of 432 mg/L. Next level to be drawn 02/02 @0600
[2024-02-02] MEDS: vancomycin HCL 1,000 MG in 0.9 % Sodium Chloride 250 ML 270 MG IV ×2 (07:08→18:09)
[2024-02-02] MEDS: oxyCODONE HCl Immed Release 5 MG TABLET 10 MG PO ×2 (07:25→11:01)
--- NOTE | 2024-02-02 08:29 | PM.PNGS ---
Subjective Subjective Date of Service: 02/02/24 Interval history: Says right buttock more painful and tender today More drainage from the gluteal cleft She says she is unable to move well as with the pain Physical Exam Vital Signs: Vital Signs: Last Vital Signs Temp 97.9 F 02/02/24 07:36 Pulse 95 02/02/24 07:36 Resp 16 02/02/24 07:36 BP 119/62 02/02/24 07:36 Pulse Ox 96 02/02/24 07:36 O2 Del Method Room Air 02/02/24 07:36 BMI result Body Mass Index 29.5 Const: General: comfortable and no acute distress Resp: Effort & Inspection: normal respiratory effort Cardio: Rate: regular rate GI: Palpation (GI): Soft to palpation and not firm Back/Spine/Pelvis: Other: Right buttock markedly swollen and edematous and very tender, note of drainage from within the gluteal cleft, unable to retract buttock and do a full exam of perianal area because of severe tenderness Objective Data Active Medications Acetaminophen (Acetaminophen 325 Mg Tablet) 975 mg PO Q6H PRN PRN Reason: Pain, Moderate(Pain Scale 4-6) Last Admin: 02/02/24 07:07 Dose: 975 mg Documented By: MICHAEL Heparin Sodium (Porcine) (Heparin Sodium,Porcine 5,000 Unit/Ml Vial) 5,000 unit SUBCUT Q8H [facility] Last Admin: 02/02/24 07:14 Dose: 5,000 unit Documented By: MICHAEL Hydromorphone HCl (Hydromorphone Hcl 0.5 Mg/0.5 Ml Syringe) 0.5 mg IVPUSH Q4H PRN; Protocol PRN Reason: Pain, Severe (Pain Scale 7-10) Last Admin: 02/02/24 04:00 Dose: 0.5 mg Documented By: LANDON Piperacillin Sod/Tazobactam (Sod 3.375 gm/ Sodium Chloride) 50 mls @ 100 mls/hr IV Q6H [facility] Last Infusion: 02/02/24 04:33 Dose: Infused Documented By: LANDON Vancomycin HCl 1,000 mg/ (Sodium Chloride) 270 mls @ 270 mls/hr IV Q8H [facility] Last Infusion: 02/02/24 08:22 Dose: Infused Documented By: MICHAEL Ondansetron HCl (Ondansetron Hcl 4 Mg/2 Ml Vial) 4 mg IVPUSH Q6H PRN PRN Reason: Nausea and Vomiting Last Admin: 02/02/24 01:19 Dose: 4 mg Documented By: ODRISAlo Oxycodone HCl (Oxycodone Hcl Immed Release 5 Mg Tablet) 10 mg PO Q4H PRN PRN Reason: Pain, Moderate(Pain Scale 4-6) Last Admin: 02/02/24 07:25 Dose: 10 mg Documented By: MICHAEL Pharmacy Consult (Consult Rx Vancomycin Dosing) 1 each MISCELLANE DAILY PRN PRN Reason: Consult order Sodium Chloride (0.9 % Sodium Chloride Flush 3 Ml Syringe) 3 ml IVFLUSH QSHIFT [facility] Last Admin: 02/02/24 07:23 Dose: Not Given Documented By: MICHAEL Non-Admin Reason: IV Running Labs 02/01/24 07:07 02/02/24 06:02 Labs: Laboratory Results - last 24 hr 02/01/24 02/01/24 02/02/24 07:07 13:55 06:02 Absolute Retic 0.037 Percent Retic 1.3 Immature Retic Fraction 24.2 H Retic Hgb Equivalent 22.4 L Hold Purple Top SEE NOTE Estim Creat Clear Calc 158.1 Estimated GFR > 60 Random Vancomycin 17.2 Blood Type O Negative Antibody Screen NEGATIVE Crossmatch See Detail Microbiology Microbiology Results: Microbiology 01/30/24 18:35 Blood Culture - Preliminary Blood - Venous No growth after 48 hours. 01/30/24 18:34 Blood Culture - Preliminary Blood - Venous No growth after 48 hours. Procedures Date of Service Date of Service: 02/02/24 Progress Note: A&P Assessment and plan (1) Abscess of right buttock: Status: Acute Assessment and Plan: Had bilateral buttock fat injection injections 3 weeks ago Now with marked swelling, tenderness and pain Large amounts of drainage CT reviewed-fluid collection in the right buttock Plan to do I and D of the right buttock because of worsening pain tenderness Explain technique of procedure to her Reviewed risks including but not limited to bleeding, worsening infections, poor healing, postop pain She understands and agrees to proceed Time Spent With Patient Time: Total time managing care of this patient today ____ minutes. Quality Stroke Does the patient have a stroke diagnosis?: No VTE Prior VTE?: No VTE Risk Level:: Medical - moderate - high VTE Device Contraindication: Treatment Not Indicated VTE Drug Contraindication: N/A - Med Ordered
--- NOTE | 2024-02-02 09:47 | P.PNIM_ITS ---
Subjective Subjective Date of Service: 02/02/24 Interval History: seen and examined this morning follow up for buttock infection still with pain right buttock no fever or chills Review of Systems Review of Systems: Yes all other systems are reviewed and are negative Constitutional Constitutional: Denies chills and Denies fever(s) Physical Exam 2 Vital Signs: Vital Signs: Last Vital Signs Temp 97.9 F 02/02/24 07:36 Pulse 95 02/02/24 07:36 Resp 16 02/02/24 07:36 BP 119/62 02/02/24 07:36 Pulse Ox 96 02/02/24 07:36 O2 Del Method Room Air 02/02/24 07:36 BMI result Body Mass Index 29.5 Appearing in no acute distress lung sounds are clear to auscultation heart regular rate rhythm, clear S1, S2 positive bowel sounds, abdomen is soft, nontender neuro patient is alert x3, no focal deficits Objective Data Active Medications Acetaminophen (Acetaminophen 325 Mg Tablet) 975 mg PO Q6H PRN PRN Reason: Pain, Moderate(Pain Scale 4-6) Last Admin: 02/02/24 07:07 Dose: 975 mg Documented By: MICHAEL Heparin Sodium (Porcine) (Heparin Sodium,Porcine 5,000 Unit/Ml Vial) 5,000 unit SUBCUT Q8H [facility] Last Admin: 02/02/24 07:14 Dose: 5,000 unit Documented By: MICHAEL Hydromorphone HCl (Hydromorphone Hcl 0.5 Mg/0.5 Ml Syringe) 0.5 mg IVPUSH Q4H PRN; Protocol PRN Reason: Pain, Severe (Pain Scale 7-10) Last Admin: 02/02/24 08:50 Dose: 0.5 mg Documented By: MICHAEL Piperacillin Sod/Tazobactam (Sod 3.375 gm/ Sodium Chloride) 50 mls @ 100 mls/hr IV Q6H [facility] Last Infusion: 02/02/24 09:22 Dose: Infused Documented By: MICHAEL Vancomycin HCl 1,000 mg/ (Sodium Chloride) 270 mls @ 270 mls/hr IV Q8H [facility] Last Infusion: 02/02/24 08:22 Dose: Infused Documented By: MICHAEL Ondansetron HCl (Ondansetron Hcl 4 Mg/2 Ml Vial) 4 mg IVPUSH Q6H PRN PRN Reason: Nausea and Vomiting Last Admin: 02/02/24 01:19 Dose: 4 mg Documented By: LANDON Oxycodone HCl (Oxycodone Hcl Immed Release 5 Mg Tablet) 10 mg PO Q4H PRN PRN Reason: Pain, Moderate(Pain Scale 4-6) Last Admin: 02/02/24 07:25 Dose: 10 mg Documented By: MICHAEL Pharmacy Consult (Consult Rx Vancomycin Dosing) 1 each MISCELLANE DAILY PRN PRN Reason: Consult order Sodium Chloride (0.9 % Sodium Chloride Flush 3 Ml Syringe) 3 ml IVFLUSH QSHIFT [facility] Last Admin: 02/02/24 07:23 Dose: Not Given Documented By: MICHAEL Non-Admin Reason: IV Running Labs 02/02/24 10:12 02/02/24 06:02 Labs: Laboratory Results - last 24 hr 02/01/24 02/01/24 02/02/24 07:07 13:55 06:02 Absolute Retic 0.037 Percent Retic 1.3 Immature Retic Fraction 24.2 H Retic Hgb Equivalent 22.4 L Hold Purple Top SEE NOTE Estim Creat Clear Calc 158.1 Estimated GFR > 60 Random Vancomycin 17.2 Blood Type O Negative Antibody Screen NEGATIVE Crossmatch See Detail Microbiology Microbiology Results: Microbiology 01/30/24 18:35 Blood Culture - Preliminary Blood - Venous No growth after 48 hours. 01/30/24 18:34 Blood Culture - Preliminary Blood - Venous No growth after 48 hours. Assessment and Plan (1) Reactive thrombocytosis: Status: Acute (2) Anemia: Status: Acute Plan 28 year old female who presents with chills and swelling of right buttock three weeks after abdominoplasty and fat transfer to b/l buttocks done in the [place] Sepsis secondary to right buttock cellulitis s/p cosmetic surgery: erythema and swelling of right buttock Continue empiric IV antibiotic therapy with vancomycin and Zosyn Blood cultures negative x 48 hours Surgery following> plan for I&D today Acute on chronic normocytic anemia reports history of iron deficiency requiring blood transfusions last transfusion after surgery three weeks ago HH today 8.7/26.9 iron 9/TIBC 140/% 6 give iron transfusion Thrombocytosis, reactive. Secondary to above, trending down follow CBC dvt ppx - heparin Attending - Dr. Sosa requires ongoing inpatient stay for management of right buttock infection and anemia Quality Stroke Does the patient have a stroke diagnosis?: No VTE Prior VTE?: No VTE Risk Level:: Medical - moderate - high VTE Device Contraindication: Treatment Not Indicated VTE Drug Contraindication: N/A - Med Ordered
[2024-02-02 10:29] LABS: Hematocrit 26.9 % (37.0-47.0); Hemoglobin 8.7 g/dl (12.0-16.0); Mean Corpuscular HGB Conc 32.3 g/dl (31.0-35.0); Mean Corpuscular Hemoglobin 27.6 pg (27.0-33.0); Mean Corpuscular Volume 85.4 fL (80.0-98.0); Mean Platelet Volume 8.3 fL (9.4-12.3); Platelet Count 731 X10*3/uL (160-400); Red Blood Count 3.15 X10*6/uL (4.20-5.50); Red Cell Distribution Width 17.1 % (11.0-16.0); White Blood Count 17.4 X10*3/uL (4.8-10.8)
--- NOTE | 2024-02-02 14:24 | HO.ANESPROP2 ---
[facility] Active Problems Active Problems: All Active Problems (Updated 02/02/24 @ 08:30 by Ricky Hadley MD) Abscess of right buttock (Acute) Anemia (Acute) Sepsis (Acute) Reactive thrombocytosis (Acute) Cellulitis of right thigh (Acute) Past Medical History Medical History (Updated 02/02/24 @ 08:30 by Ricky Hadley MD) Abscess of right buttock Family History Family history of problems with anesthesia: No Surgical History History of Problems with Anesthesia: No Social History Social History Household Members: Family Housing: House Do you presently have visiting nurse or other home services: No Patient Tobacco Use Status: Never used Tobacco Second Hand Smoke Exposure: No service: No Meds Allergies Allergy/AdvReac Type Severity Reaction Status Date / Time No Known Allergies Allergy Verified 10/05/21 21:26 [No Known Allergies*] Active Medications: Current Medications Acetaminophen (Acetaminophen 325 Mg Tablet) 975 mg PO Q6H PRN PRN Reason: Pain, Moderate(Pain Scale 4-6) Last Admin: 02/02/24 07:07 Dose: 975 mg Fentanyl (Fentanyl Citrate/Pf 100 Mcg/2 Ml Vial) 25 mcg IVPUSH Q5M PRN; Protocol PRN Reason: Pain, Moderate(Pain Scale 4-6) Stop: 02/02/24 20:23 Heparin Sodium (Porcine) (Heparin Sodium,Porcine 5,000 Unit/Ml Vial) 5,000 unit SUBCUT Q8H [facility] Last Admin: 02/02/24 07:14 Dose: 5,000 unit Hydromorphone HCl (Hydromorphone Hcl 0.5 Mg/0.5 Ml Syringe) 0.5 mg IVPUSH Q4H PRN; Protocol PRN Reason: Pain, Severe (Pain Scale 7-10) Last Admin: 02/02/24 08:50 Dose: 0.5 mg Hydromorphone HCl (Hydromorphone Hcl 0.5 Mg/0.5 Ml Syringe) 0.5 mg IVPUSH Q5M PRN; Protocol PRN Reason: Pain, Severe (Pain Scale 7-10) Stop: 02/02/24 20:23 Piperacillin Sod/Tazobactam (Sod 3.375 gm/ Sodium Chloride) 50 mls @ 100 mls/hr IV Q6H [facility] Last Infusion: 02/02/24 09:22 Dose: Infused Vancomycin HCl 1,000 mg/ (Sodium Chloride) 270 mls @ 270 mls/hr IV Q8H [facility] Last Infusion: 02/02/24 08:22 Dose: Infused Ondansetron HCl (Ondansetron Hcl 4 Mg/2 Ml Vial) 4 mg IVPUSH Q6H PRN PRN Reason: Nausea and Vomiting Last Admin: 02/02/24 11:01 Dose: 4 mg Oxycodone HCl (Oxycodone Hcl Immed Release 5 Mg Tablet) 10 mg PO Q4H PRN PRN Reason: Pain, Moderate(Pain Scale 4-6) Last Admin: 02/02/24 11:01 Dose: 10 mg Pharmacy Consult (Consult Rx Vancomycin Dosing) 1 each MISCELLANE DAILY PRN PRN Reason: Consult order Sodium Chloride (0.9 % Sodium Chloride Flush 3 Ml Syringe) [facility] Last Admin: 02/02/24 07:23 Dose: Not Given Home Medications Medication Instructions Recorded Confirmed Last Taken Type acetaminophen 500 mg tablet 1,000 mg PO Q6H PRN Pain 01/31/24 01/31/24 Unknown History Exam Height,Weight and Vital Signs: Height 5 ft 3 in Weight 75.5 kg Last Vital Signs Temp 98.9 F 02/02/24 13:05 Pulse 84 02/02/24 13:05 Resp 16 02/02/24 13:05 BP 115/76 02/02/24 13:05 Pulse Ox 97 02/02/24 13:05 O2 Del Method Room Air 02/02/24 13:05 Pertinent Lab Results Pertinent Lab Results: Laboratory Tests 01/30/24 01/30/24 01/31/24 18:34 18:41 06:34 WBC 24.1 H 22.0 H RBC 3.71 L 2.97 L Hgb 10.2 L 8.4 L Hct 32.0 L 25.8 L MCV 86.3 86.9 MCH 27.5 28.3 MCHC 31.9 32.6 RDW 16.4 H 16.4 H Plt Count 1041 H* D 780 H D MPV 8.9 L 8.5 L Immature Gran % (Auto) 1.2 H 1.2 H Neut % (Auto) 80.5 H 79.5 H Lymph % (Auto) 12.2 L 12.5 L [place] % (Auto) 5.3 5.9 Eos % (Auto) 0.5 0.6 Baso % (Auto) 0.3 0.3 Lymph # (Auto) 2.9 2.8 [place] # (Auto) 1.3 H 1.3 H Eos # (Auto) 0.1 0.1 Baso # (Auto) 0.1 0.1 Abs Immat Gran (auto) 0.29 H 0.26 H Absolute Neuts (auto) 19.4 H 17.5 H Absolute Nucleated RBC 0.000 0.000 Nucleated RBC % (auto) 0.0 0.0 Absolute Retic Percent Retic Immature Retic Fraction Retic Hgb Equivalent Hold Purple Top Sodium 137 137 Potassium 3.9 3.6 Chloride 99 106 Carbon Dioxide 26 24 Anion Gap 16 11 L BUN 8 L 6 L Creatinine 0.70 0.54 Estim Creat Clear Calc 110.0 152.2 Estimated GFR > 60 > 60 Random Glucose 104 96 Lactic Acid 1.3 Calcium 9.3 8.1 L D Iron TIBC % Saturation Unsat Iron Binding Ferritin Total Bilirubin 0.2 0.2 Direct Bilirubin AST 18 22 ALT 17 13 Alkaline Phosphatase 117 86 Lactate Dehydrogenase Total Creatine Kinase 30 C-Reactive Protein 24.21 H Total Protein 7.4 5.8 L Albumin 3.6 2.8 L Beta HCG, Quant < 2 Urine Color Dark Yellow Urine Appearance Clear Urine pH 5.5 Ur Specific [place] >= 1.030 H Urine Protein Trace Urine Glucose (UA) Negative Urine Ketones Trace Urine Blood Negative Urine Nitrite Negative Ur Leukocyte Esterase Negative Urine RBC 0-2 Urine WBC 0-5 Ur Squamous Epith Cells 3-5 Urine Bacteria None Seen Hyaline Casts 0-2 Urine Yeast Present Random Vancomycin Influenza Type A (PCR) NEGATIVE Influenza Type B (PCR) NEGATIVE RSV RNA Qual (PCR) NEGATIVE SARS-CoV-2 RNA (RT-PCR) NEGATIVE Blood Type Antibody Screen Crossmatch 02/01/24 02/01/24 02/02/24 07:07 13:55 06:02 WBC 18.1 H RBC 2.77 L Hgb 7.9 L Hct 24.1 L MCV 87.0 MCH 28.5 MCHC 32.8 RDW 16.5 H Plt Count 674 H MPV 8.1 L Immature Gran % (Auto) 1.4 H Neut % (Auto) 78.9 H Lymph % (Auto) 12.9 L [place] % (Auto) 5.8 Eos % (Auto) 0.7 Baso % (Auto) 0.3 Lymph # (Auto) 2.3 [place] # (Auto) 1.1 Eos # (Auto) 0.1 Baso # (Auto) 0.1 Abs Immat Gran (auto) 0.25 H Absolute Neuts (auto) 14.3 H Absolute Nucleated RBC 0.000 Nucleated RBC % (auto) 0.0 Absolute Retic 0.037 Percent Retic 1.3 Immature Retic Fraction 24.2 H Retic Hgb Equivalent 22.4 L Hold Purple Top SEE NOTE Sodium 137 Potassium 3.7 Chloride 104 Carbon Dioxide 27 Anion Gap 10 L BUN 4 L Creatinine 0.55 0.52 Estim Creat Clear Calc 149.4 158.1 Estimated GFR > 60 > 60 Random Glucose 101 Lactic Acid Calcium 8.3 L Iron 9 L TIBC 140 L % Saturation 6 L Unsat Iron Binding 131 Ferritin 142 H Total Bilirubin 0.1 Direct Bilirubin < 0.2 AST 24 ALT 16 Alkaline Phosphatase 97 Lactate Dehydrogenase 143 Total Creatine Kinase C-Reactive Protein Total Protein 6.1 L Albumin 2.7 L Beta HCG, Quant Urine Color Urine Appearance Urine pH Ur Specific [place] Urine Protein Urine Glucose (UA) Urine Ketones Urine Blood Urine Nitrite Ur Leukocyte Esterase Urine RBC Urine WBC Ur Squamous Epith Cells Urine Bacteria Hyaline Casts Urine Yeast Random Vancomycin 7.6 L 17.2 Influenza Type A (PCR) Influenza Type B (PCR) RSV RNA Qual (PCR) SARS-CoV-2 RNA (RT-PCR) Blood Type O Negative Antibody Screen NEGATIVE Crossmatch See Detail 02/02/24 10:12 WBC 17.4 H RBC 3.15 L Hgb 8.7 L Hct 26.9 L MCV 85.4 MCH 27.6 MCHC 32.3 RDW 17.1 H Plt Count 731 H MPV 8.3 L Immature Gran % (Auto) Neut % (Auto) Lymph % (Auto) [place] % (Auto) Eos % (Auto) Baso % (Auto) Lymph # (Auto) [place] # (Auto) Eos # (Auto) Baso # (Auto) Abs Immat Gran (auto) Absolute Neuts (auto) Absolute Nucleated RBC 0.000 Nucleated RBC % (auto) 0.0 Absolute Retic Percent Retic Immature Retic Fraction Retic Hgb Equivalent Hold Purple Top Sodium Potassium Chloride Carbon Dioxide Anion Gap BUN Creatinine Estim Creat Clear Calc Estimated GFR Random Glucose Lactic Acid Calcium Iron TIBC % Saturation Unsat Iron Binding Ferritin Total Bilirubin Direct Bilirubin AST ALT Alkaline Phosphatase Lactate Dehydrogenase Total Creatine Kinase C-Reactive Protein Total Protein Albumin Beta HCG, Quant Urine Color Urine Appearance Urine pH Ur Specific [place] Urine Protein Urine Glucose (UA) Urine Ketones Urine Blood Urine Nitrite Ur Leukocyte Esterase Urine RBC Urine WBC Ur Squamous Epith Cells Urine Bacteria Hyaline Casts Urine Yeast Random Vancomycin Influenza Type A (PCR) Influenza Type B (PCR) RSV RNA Qual (PCR) SARS-CoV-2 RNA (RT-PCR) Blood Type Antibody Screen Crossmatch Airway Mallampati Class: II TM Dist: >3cm Neck ROM: Full Loose/Missing/Broken Teeth: No (rrr) Lungs: cta b/l Assessment and Plan Final Anesthetic Review Family History of Problems with Anesthesia: No History of Problems with Anesthesia: No NPO: Yes ASA Class: I and Emergency Final Preanesthetic Review: No Changes in Pt Med Stat, Meds/Allgs Chart Reviewed, Consent Obtained/Reviewed and Anes Risks/Benef Reviewed Patient Risk: Low Procedure Risk: Low Anesthetic Plan Anesthetic Plan: MAC: Disposition: Standard PACU
--- NOTE | 2024-02-02 14:35 | PC.NURSE ---
pt c/o 10/10 buttock pain, tearful and facial grimace. notified Dr. Linder, anesthesiologist, no new orders. repositioned pt on left side with pillow and warm blanket with quiet affect, no tears, eyes closed,resting quietly.
--- NOTE | 2024-02-02 15:20 | P.OP_ITS ---
Operative Note Operative Note Date of Service: 02/02/24 Narrative: Preop diagnosis: large right buttock abscess after buttock lift Postop diagnosis: The same Procedure: Incision drainage large right buttock abscess after a buttock lift Surgeon: Ricky Hadley MD The patient is a 28 year old female who had a buttock lift 3 weeks ago the [facility]. She had fat from the abdominal wall dissected into her buttocks. However, she developed swelling and severe pain and tenderness. Her CAT scan I have reviewed showed fluid in the right buttock. This morning, she describes worsening pain, tenderness and swelling. I therefore explained to her it would be best to proceed with I&D in the OR. I explained the technique of the procedure as was the risks, benefits, and alternatives. She was brought to the operating room. She was placed in left lateral decubitus position under general anesthesia via laryngeal mask airway. The right buttock was retracted with wide tape There was note of significant swelling, edema of the entire right buttock area. There was note of a sinus draining in the gluteal cleft just to the left of the midline. I probed this with a hemostat and this sinus/open wound was connecting to a large cavity in the right buttock. I proceeded to make a generous cruciate incision on the right buttock with a blade 11. This was carried down through the full-thickness of skin and thick subcutaneous fat until needle I entered an abscess cavity. I used a finger to probe and opened up this entire cavity to break down any possible loculations. Large amounts of pus was drained. It appeared that there was about 750 cc of pus was drained from the cavity. I connected this to the open wound to the left of the midline. I made this open wound to the left of midline larger with a blade 15 to make sure that there was note of good drainage of pus. I irrigated the abscess cavity. I then proceeded to apply 1 inch iodoform packing to both the I&D sites on the right buttock and the gluteal cleft. Dressings were applied. The procedure was completed. She tolerated procedure well. There were no immediate complications. There was minimal blood loss. She was extubated without difficulty and transferred to the recovery room with s table vital signs.
--- NOTE | 2024-02-02 16:07 | MHC.CM.PN ---
per rounds pt not medically ready for dc
[2024-02-02] MEDS: 0.9 % Sodium Chloride Flush 3 ML SYRINGE IVFLUSH (18:08)
[2024-02-02] MEDS: Iron Sucrose Complex 100 MG in 0.9 % Sodium Chloride 50 ML 220 MG IV (18:08)
[2024-02-03] VITALS (9 sets, daily range): BP systolic 105–128; BP diastolic 54–68; PULSE 73–98; RESP 16–20; TEMP 36.4–37.1; O2SAT 95–99
[2024-02-03] MEDS: 0.9 % Sodium Chloride Flush 3 ML SYRINGE IVFLUSH ×4 (00:22→23:48)
[2024-02-03] MEDS: vancomycin HCL 1,000 MG in 0.9 % Sodium Chloride 250 ML 270 MG IV ×3 (00:22→15:08)
[2024-02-03] MEDS: Heparin Sodium,Porcine 5,000 UNIT/ML VIAL 5000 UNIT SUBCUT ×4 (00:46→23:49)
[2024-02-03] MEDS: ondansetron HCL 4 MG/2 ML VIAL IVPUSH ×3 (00:47→20:45)
[2024-02-03] MEDS: oxyCODONE HCl Immed Release 5 MG TABLET 10 MG PO ×2 (00:50→09:08)
[2024-02-03] MEDS: Piperacillin Sodium/Tazobactam 3.375 GM in 0.9 % Sodium Chloride 50 ML IV ×4 (04:37→21:45)
[2024-02-03 06:12] LABS: MANUAL DIFF FLAG NO
[2024-02-03] MEDS: HYDROmorphone HCl 0.5 MG/0.5 ML SYRINGE IVPUSH ×2 (06:23→20:45)
[2024-02-03 06:38] LABS: Creatinine Clr Calc Pharmacy 139.3; Estimated Glomerular Filt Rate > 60; Vancomycin Random 16.1 mcg/mL (15-20)
[2024-02-03 06:54] LABS: Basophils Absolute Auto 0.1 X10*3/uL (0.0-0.2); Basophils Percent Auto 0.4 % (0-2); Eosinophils Absolute Auto 0.2 X10*3/uL (0.0-0.4); Eosinophils Percent Auto 1.8 % (0-4); Hematocrit 27.5 % (37.0-47.0); Hemoglobin 8.9 g/dl (12.0-16.0); Imm Gran Abs Auto 0.53 X10*3/uL (0.00-0.03); Lymphocytes Absolute Auto 2.6 X10*3/uL (1.2-4.9); Mean Corpuscular HGB Conc 32.4 g/dl (31.0-35.0); Mean Corpuscular Hemoglobin 27.8 pg (27.0-33.0); Mean Corpuscular Volume 85.9 fL (80.0-98.0); Mean Platelet Volume 8.8 fL (9.4-12.3); Monocytes Absolute Auto 0.7 X10*3/uL (0.1-1.2); Monocytes Percent Auto 5.3 % (2-11); Neutrophils Percent Auto 68.5 % (45-73); Platelet Count 721 X10*3/uL (160-400); White Blood Count 13.2 X10*3/uL (4.8-10.8)
--- NOTE | 2024-02-03 09:15 | P.PNIM_ITS ---
Subjective Subjective Date of Service: 02/03/24 Interval History: seen and examined this morning follow up for buttock infection still with pain right buttock no fever or chills Review of Systems Review of Systems: Yes all other systems are reviewed and are negative Constitutional Constitutional: Denies chills and Denies fever(s) Physical Exam 2 Vital Signs: Vital Signs: Last Vital Signs Temp 98.7 F 02/03/24 07:57 Pulse 92 02/03/24 07:57 Resp 18 02/03/24 07:57 BP 121/63 02/03/24 07:57 Pulse Ox 97 02/03/24 07:57 O2 Del Method Room Air 02/03/24 07:57 BMI result Body Mass Index 29.5 Appearing in no acute distress lung sounds are clear to auscultation heart regular rate rhythm, clear S1, S2 positive bowel sounds, abdomen is soft, nontender neuro patient is alert x3, no focal deficits Objective Data Active Medications Acetaminophen (Acetaminophen 325 Mg Tablet) 975 mg PO Q6H PRN PRN Reason: Pain, Moderate(Pain Scale 4-6) Last Admin: 02/02/24 07:07 Dose: 975 mg Documented By: MICHAEL Heparin Sodium (Porcine) (Heparin Sodium,Porcine 5,000 Unit/Ml Vial) 5,000 unit SUBCUT Q8H [facility] Last Admin: 02/03/24 09:07 Dose: 5,000 unit Documented By: KATHARINE Hydromorphone HCl (Hydromorphone Hcl 0.5 Mg/0.5 Ml Syringe) 0.5 mg IVPUSH Q4H PRN; Protocol PRN Reason: Pain, Severe (Pain Scale 7-10) Last Admin: 02/03/24 06:23 Dose: 0.5 mg Documented By: NISREEN Piperacillin Sod/Tazobactam (Sod 3.375 gm/ Sodium Chloride) 50 mls @ 100 mls/hr IV Q6H [facility] Last Infusion: 02/03/24 05:09 Dose: Infused Documented By: NISREEN Vancomycin HCl 1,000 mg/ (Sodium Chloride) 270 mls @ 270 mls/hr IV Q8H [facility] Last Admin: 02/03/24 09:07 Dose: 270 mls/hr Documented By: KATHARINE Ondansetron HCl (Ondansetron Hcl 4 Mg/2 Ml Vial) 4 mg IVPUSH Q6H PRN PRN Reason: Nausea and Vomiting Last Admin: 02/03/24 09:08 Dose: 4 mg Documented By: KATHARINE Oxycodone HCl (Oxycodone Hcl Immed Release 5 Mg Tablet) 10 mg PO Q4H PRN PRN Reason: Pain, Moderate(Pain Scale 4-6) Last Admin: 02/03/24 09:08 Dose: 10 mg Documented By: KATHARINE Pharmacy Consult (Consult Rx Vancomycin Dosing) 1 each MISCELLANE DAILY PRN PRN Reason: Consult order Sodium Chloride (0.9 % Sodium Chloride Flush 3 Ml Syringe) 3 ml IVFLUSH QSHIFT [facility] Last Admin: 02/03/24 09:07 Dose: 3 ml Documented By: KATHARINE Labs 02/03/24 06:02 02/03/24 06:02 Labs: Laboratory Results - last 24 hr 02/02/24 02/03/24 10:12 06:02 MCV 85.4 85.9 MCH 27.6 27.8 MCHC 32.3 32.4 RDW 17.1 H 17.0 H Plt Count 731 H 721 H MPV 8.3 L 8.8 L Immature Gran % (Auto) 4.0 H Neut % (Auto) 68.5 Lymph % (Auto) 20.0 [place] % (Auto) 5.3 Eos % (Auto) 1.8 Baso % (Auto) 0.4 Lymph # (Auto) 2.6 [place] # (Auto) 0.7 Eos # (Auto) 0.2 Baso # (Auto) 0.1 Abs Immat Gran (auto) 0.53 H Absolute Neuts (auto) 9.0 H Absolute Nucleated RBC 0.000 0.000 Nucleated RBC % (auto) 0.0 0.0 Estim Creat Clear Calc 139.3 Estimated GFR > 60 Random Vancomycin 16.1 Microbiology Microbiology Results: Microbiology 02/02/24 Unknown Gram Stain - Final Buttock Right Assessment and Plan (1) Reactive thrombocytosis: Status: Acute (2) Anemia: Status: Acute Plan 28 year old female who presents with chills and swelling of right buttock three weeks after abdominoplasty and fat transfer to b/l buttocks done in the [facility] [place] Sepsis secondary to right buttock cellulitis s/p cosmetic surgery: erythema and swelling of right buttock Continue empiric IV antibiotic therapy with vancomycin and Zosyn Blood cultures negative x 48 hours Surgery following> s/p I&D 02/01/, 500cc pus drained from cavity Acute on chronic normocytic anemia reports history of iron deficiency requiring blood transfusions last transfusion after surgery three weeks ago HH today 8.9/27.5 iron 9/TIBC 140/% 6 give iron transfusion Thrombocytosis, reactive. Secondary to above, trending down follow CBC dvt ppx - heparin Attending - Dr. Sosa requires ongoing inpatient stay for management of right buttock infection and anemia Quality Stroke Does the patient have a stroke diagnosis?: No VTE Prior VTE?: No VTE Risk Level:: Medical - moderate - high VTE Device Contraindication: Treatment Not Indicated VTE Drug Contraindication: N/A - Med Ordered
--- NOTE | 2024-02-03 11:13 | PM.PNGS ---
Subjective Subjective Date of Service: 02/03/24 <Aliya Craig PA-C - Last Filed: 02/03/24 11:17> 02/03/24 <Ricky Hadley MD - Last Filed: 02/03/24 14:16> Interval history: Feels significantly improved. Was able to sleep last night and lie on right side. Was also able to ambulate and use right leg. <Aliya Craig PA-C - Last Filed: 02/03/24 11:17> Physical Exam Vital Signs: Vital Signs: Last Vital Signs Temp 98.7 F 02/03/24 07:57 Pulse 92 02/03/24 07:57 Resp 18 02/03/24 07:57 BP 121/63 02/03/24 07:57 Pulse Ox 97 02/03/24 07:57 O2 Del Method Room Air 02/03/24 07:57 BMI result Body Mass Index 29.5 <Aliya Craig PA-C - Last Filed: 02/03/24 11:17> Const: General: comfortable, no acute distress and alert <Aliya Craig PA-C - Last Filed: 02/03/24 11:17> Orientation/consciousness: patient oriented x3 <Aliya Craig PA-C - Last Filed: 02/03/24 11:17> Resp: Effort & Inspection: normal respiratory effort <Aliya Craig PA-C - Last Filed: 02/03/24 11:17> Skin: Other: right buttock I&D sites packing advanced, continues with purulent/fat injections draining, surrounding erythema and tenderness improved but still has fair amount of induration extending distally <Aliya Craig PA-C - Last Filed: 02/03/24 11:17> Neuro: General: patient oriented x3 and moves all extremities <SOCORRO Wright Last Filed: 02/03/24 11:17> Objective Data Active Medications Acetaminophen (Acetaminophen 325 Mg Tablet) 975 mg PO Q6H PRN PRN Reason: Pain, Moderate(Pain Scale 4-6) Last Admin: 02/02/24 07:07 Dose: 975 mg Documented By: MICHAEL Heparin Sodium (Porcine) (Heparin Sodium,Porcine 5,000 Unit/Ml Vial) 5,000 unit SUBCUT Q8H [facility] Last Admin: 02/03/24 09:07 Dose: 5,000 unit Documented By: KATHARINE Hydromorphone HCl (Hydromorphone Hcl 0.5 Mg/0.5 Ml Syringe) 0.5 mg IVPUSH Q4H PRN; Protocol PRN Reason: Pain, Severe (Pain Scale 7-10) Last Admin: 02/03/24 06:23 Dose: 0.5 mg Documented By: NISREEN Piperacillin Sod/Tazobactam (Sod 3.375 gm/ Sodium Chloride) 50 mls @ 100 mls/hr IV Q6H [facility] Last Admin: 02/03/24 10:16 Dose: 100 mls/hr Documented By: KATHARINE Vancomycin HCl 1,000 mg/ (Sodium Chloride) 270 mls @ 270 mls/hr IV Q8H [facility] Last Infusion: 02/03/24 10:00 Dose: Infused Documented By: KATHARINE Ondansetron HCl (Ondansetron Hcl 4 Mg/2 Ml Vial) 4 mg IVPUSH Q6H PRN PRN Reason: Nausea and Vomiting Last Admin: 02/03/24 09:08 Dose: 4 mg Documented By: KATHARINE Oxycodone HCl (Oxycodone Hcl Immed Release 5 Mg Tablet) 10 mg PO Q4H PRN PRN Reason: Pain, Moderate(Pain Scale 4-6) Last Admin: 02/03/24 09:08 Dose: 10 mg Documented By: KATHARINE Pharmacy Consult (Consult Rx Vancomycin Dosing) 1 each MISCELLANE DAILY PRN PRN Reason: Consult order Sodium Chloride (0.9 % Sodium Chloride Flush 3 Ml Syringe) 3 ml IVFLUSH QSHIFT [facility] Last Admin: 02/03/24 09:07 Dose: 3 ml Documented By: KATHARINE <Aliya Craig PA-C - Last Filed: 02/03/24 11:17> Labs CBC & Chem 7: 02/03/24 06:02 02/03/24 06:02 <Aliya Craig PA-C - Last Filed: 02/03/24 11:17> Labs: Laboratory Results - last 24 hr 02/03/24 06:02 MCV 85.9 MCH 27.8 MCHC 32.4 RDW 17.0 H Plt Count 721 H MPV 8.8 L Immature Gran % (Auto) 4.0 H Neut % (Auto) 68.5 Lymph % (Auto) 20.0 [place] % (Auto) 5.3 Eos % (Auto) 1.8 Baso % (Auto) 0.4 Lymph # (Auto) 2.6 [place] # (Auto) 0.7 Eos # (Auto) 0.2 Baso # (Auto) 0.1 Abs Immat Gran (auto) 0.53 H Absolute Neuts (auto) 9.0 H Absolute Nucleated RBC 0.000 Nucleated RBC % (auto) 0.0 Estim Creat Clear Calc 139.3 Estimated GFR > 60 Random Vancomycin 16.1 <Aliya Craig PA-C - Last Filed: 02/03/24 11:17> Microbiology Microbiology Results: Microbiology 02/02/24 Unknown Gram Stain - Final Buttock Right Routine Culture - Preliminary Culture in progress. <Aliya Craig PA-C - Last Filed: 02/03/24 11:17> Procedures Date of Service Date of Service: 02/03/24 <Aliya Craig PA-C - Last Filed: 02/03/24 11:17> 02/03/24 <Ricky Hadley MD - Last Filed: 02/03/24 14:16> Progress Note: A&P Assessment and plan (1) Abscess of right buttock: Status: Acute <Aliya Craig PA-C - Last Filed: 02/03/24 11:17> Assessment and Plan: feels much better packing advanced dressings changed poss dc home jessica ffup cultures seen and excamined independently <Ricky Hadley MD - Last Filed: 02/03/24 14:16> Assessment and Plan: POD #1 s/p incision drainage large right buttock abscess. WBC significantly improved this morning. Surrounding cellulitic changes improving however continues to have a fair amount of induration on exam and areas continue to drain. Packing advanced and wound redressed with fluffs and abdominal dressing. Cont IV abx for now. Will likely remove remainder of packing tomorrow. <Aliya Craig PA-C - Last Filed: 02/03/24 11:17> Time Spent With Patient Time: Total time managing care of this patient today ____ minutes. <Aliya Craig PA-C - Last Filed: 02/03/24 11:17> Quality Stroke Does the patient have a stroke diagnosis?: No <Aliya Craig PA-C - Last Filed: 02/03/24 11:17> VTE Prior VTE?: No <Aliya Craig PA-C - Last Filed: 02/03/24 11:17> VTE Risk Level:: Medical - moderate - high <Aliya Craig PA-C - Last Filed: 02/03/24 11:17> VTE Device Contraindication: Treatment Not Indicated <Aliya Craig PA-C - Last Filed: 02/03/24 11:17> VTE Drug Contraindication: N/A - Med Ordered <Aliya Craig PA-C - Last Filed: 02/03/24 11:17>
--- NOTE | 2024-02-03 12:14 | P.CDIM_ITS ---
PROVIDER RESPONSE TEXT: To clarify, the appropriate diagnosis supported by the clinical indicators: Iron deficiency anemia QUERY TEXT: PHYSICIAN'S DOCUMENTATION REQUEST Date of Query: 02/03/2024 10:31 AM EDT Patient Name: Mariah Marrufo Admit Date: 01/31/2024 Dear Iva Gandara, A review of the medical record indicates additional documentation may be needed. Please review below and update the documentation accordingly. Clinical Indicators: Progress notes: Plan-Acute on chronic normocytic anemia reports history of iron deficiency requiring transfusions Iron 9/TIBC 140% 6 given iron transfusion Based on the above, could you clarify which of the following is the most likely type of anemia you ar e evaluating, treating, and/or monitoring? Iron deficiency anemia Iron deficiency anemia secondary to acute blood loss Other Other (explain) Clinically unable to determine (explain) Thank you, Conchita Silverman, CCS, CDIS Use of terms such as suspected, likely, concern for, or probable (associated with a specific diagnosi s that is being evaluated, monitored, or treated as if it exists) are acceptable and can be coded in the inpatient se tting, when documented at the time of discharge. Please use your independent medical judgment in providing your response. THIS QUERY IS PART OF THE PERMANENT MEDICAL RECORD
--- NOTE | 2024-02-03 13:00 | HO.POSTANES ---
Post Anesthesia Evaluation Post Anesthesia Evaluation Date of Service: 02/03/24 Vital Signs: Vital Signs Temp Pulse Resp BP Pulse Ox O2 Del Method 02/03/24 07:57 98.7 F 92 18 121/63 97 Room Air 02/03/24 06:23 18 02/03/24 04:09 97.5 F 96 18 105/54 L 95 Room Air 02/03/24 01:47 18 Anesthesia: General Mental Status: Awake Pain Control: Satisfactory Nausea/Vomiting: None Hydration: Adequate Anesthesia-Related Issues: No Anes. Related Issues
[2024-02-03] MEDS: Acetaminophen 325 MG TABLET 975 MG PO (13:39)
[2024-02-04] MEDS: Acetaminophen 325 MG TABLET 975 MG PO ×3 (01:04→17:22)
[2024-02-04 03:09] VITALS: BP 118/67; PULSE 69; RESP 16; TEMP 36.2; O2SAT 97
[2024-02-04 03:33] VITALS: RESP 19
[2024-02-04] MEDS: HYDROmorphone HCl 0.5 MG/0.5 ML SYRINGE IVPUSH ×3 (03:33→21:02)
[2024-02-04] MEDS: Piperacillin Sodium/Tazobactam 3.375 GM in 0.9 % Sodium Chloride 50 ML IV ×4 (03:33→22:35)
[2024-02-04] MEDS: vancomycin HCL 1,000 MG in 0.9 % Sodium Chloride 250 ML 270 MG IV ×3 (04:40→20:53)
[2024-02-04 05:43] LABS: Creatinine Clr Calc Pharmacy 124.5; Estimated Glomerular Filt Rate > 60
[2024-02-04] MEDS: oxyCODONE HCl Immed Release 5 MG TABLET 10 MG PO ×3 (06:57→14:23)
[2024-02-04] MEDS: ondansetron HCL 4 MG/2 ML VIAL IVPUSH ×2 (06:57→14:23)
[2024-02-04 07:31] VITALS: BP 110/60; PULSE 54; RESP 16; TEMP 36.3; O2SAT 96
[2024-02-04] MEDS: Heparin Sodium,Porcine 5,000 UNIT/ML VIAL 5000 UNIT SUBCUT ×2 (09:09→16:01)
--- NOTE | 2024-02-04 09:09 | P.PNGS_ITS ---
Subjective Subjective Date of Service: 02/04/24 <Aliya Craig PA-C - Last Filed: 02/04/24 09:13> 02/04/24 <Ricky Hadley MD - Last Filed: 02/04/24 12:27> Interval history: Continues to feel improved, less pain. Wants to go home. Mom will assist with dressing changes. <Aliya Craig PA-C - Last Filed: 02/04/24 09:13> Physical Exam 2 Vital Signs: Vital Signs: Last Vital Signs Temp 97.4 F 02/04/24 07:31 Pulse 54 02/04/24 07:31 Resp 16 02/04/24 07:31 BP 110/60 02/04/24 07:31 Pulse Ox 96 02/04/24 07:31 O2 Del Method Room Air 02/04/24 07:31 BMI result Body Mass Index 29.5 <Aliya Craig PA-C - Last Filed: 02/04/24 09:13> Const: General: comfortable, no acute distress and alert <Aliya Craig PA-C - Last Filed: 02/04/24 09:13> Orientation/consciousness: patient oriented x3 <Aliya Craig PA-C - Last Filed: 02/04/24 09:13> Resp: Effort & Inspection: normal respiratory effort <Aliya Craig PA-C - Last Filed: 02/04/24 09:13> Skin: Other: right buttock cellulitis significantly improved, very little residual erythema and induration remaining, some drainage noted from both sites but nonpurulent, all packing removed <Aliya Craig PA-C - Last Filed: 02/04/24 09:13> Neuro: General: patient oriented x3 and moves all extremities <SOCORRO Wright Last Filed: 02/04/24 09:13> Objective Data Active Medications Acetaminophen (Acetaminophen 325 Mg Tablet) 975 mg PO Q6H PRN PRN Reason: Pain, Moderate(Pain Scale 4-6) Last Admin: 02/04/24 06:57 Dose: 975 mg Documented By: MICHAEL Heparin Sodium (Porcine) (Heparin Sodium,Porcine 5,000 Unit/Ml Vial) 5,000 unit SUBCUT Q8H [facility] Last Admin: 02/03/24 23:49 Dose: 5,000 unit Documented By: SUZANNE Hydromorphone HCl (Hydromorphone Hcl 0.5 Mg/0.5 Ml Syringe) 0.5 mg IVPUSH Q4H PRN; Protocol PRN Reason: Pain, Severe (Pain Scale 7-10) Last Admin: 02/04/24 03:33 Dose: 0.5 mg Documented By: SUZANNE Piperacillin Sod/Tazobactam (Sod 3.375 gm/ Sodium Chloride) 50 mls @ 100 mls/hr IV Q6H [facility] Last Infusion: 02/04/24 04:29 Dose: Infused Documented By: SUZANNE Vancomycin HCl 1,000 mg/ (Sodium Chloride) 270 mls @ 270 mls/hr IV Q8H [facility] Last Infusion: 02/04/24 05:40 Dose: Infused Documented By: SUZANNE Ondansetron HCl (Ondansetron Hcl 4 Mg/2 Ml Vial) 4 mg IVPUSH Q6H PRN PRN Reason: Nausea and Vomiting Last Admin: 02/04/24 06:57 Dose: 4 mg Documented By: MICHAEL Oxycodone HCl (Oxycodone Hcl Immed Release 5 Mg Tablet) 10 mg PO Q4H PRN PRN Reason: Pain, Moderate(Pain Scale 4-6) Last Admin: 02/04/24 06:57 Dose: 10 mg Documented By: MICHAEL Pharmacy Consult (Consult Rx Vancomycin Dosing) 1 each MISCELLANE DAILY PRN PRN Reason: Consult order Sodium Chloride (0.9 % Sodium Chloride Flush 3 Ml Syringe) 3 ml IVFLUSH QSHIFT [facility] Last Admin: 02/04/24 06:58 Dose: Not Given Documented By: MICHAEL Non-Admin Reason: IV Running <Aliya Craig PA-C - Last Filed: 02/04/24 09:13> Labs CBC & Chem 7: 02/03/24 06:02 02/04/24 05:08 <Aliya Craig PA-C - Last Filed: 02/04/24 09:13> Labs: Laboratory Results - last 24 hr 02/04/24 05:08 Hold Purple Top SEE NOTE Estim Creat Clear Calc 124.5 Estimated GFR > 60 <Aliya Craig PA-C - Last Filed: 02/04/24 09:13> Microbiology Microbiology Results: Microbiology 02/02/24 Unknown Gram Stain - Final Buttock Right Routine Culture - Preliminary Staphylococcus aureus <Aliya Craig PA-C - Last Filed: 02/04/24 09:13> Procedures Date of Service Date of Service: 02/04/24 <Aliya Craig PA-C - Last Filed: 02/04/24 09:13> 02/04/24 <Ricky Hadley MD - Last Filed: 02/04/24 12:27> Progress Note: A&P Assessment and plan (1) Abscess of right buttock: Status: Acute <Aliya Craig PA-C - Last Filed: 02/04/24 09:13> Assessment and Plan: packings removed continue daily wound care oral antibiotics ffup in office seen and examined independently <Ricky Hadley MD - Last Filed: 02/04/24 12:27> Assessment and Plan: POD #2 s/p incision drainage large right buttock abscess. Surrounding cellulitis significantly improved with very little remaining erythema and induration. Packing removed and wound redressed with fluffs and abdominal dressing. Wound cultures growing S. aureus. Patient stable for dc to home today on PO course of abx. Discussed daily dressing changes to site while wounds remain open and draining. Patient reports her mom will be doing this. F/u in office in [address] Hadley. <Aliya Craig PA-C - Last Filed: 02/04/24 09:13> Time Spent With Patient Time: Total time managing care of this patient today ____ minutes. <Aliya Craig PA-C - Last Filed: 02/04/24 09:13> Quality Stroke Does the patient have a stroke diagnosis?: No <Aliya Craig PA-C - Last Filed: 02/04/24 09:13> VTE Prior VTE?: No <Aliya Craig PA-C - Last Filed: 02/04/24 09:13> VTE Risk Level:: Medical - moderate - high <Aliya Craig PA-C - Last Filed: 02/04/24 09:13> VTE Device Contraindication: Treatment Not Indicated <Aliya Craig PA-C - Last Filed: 02/04/24 09:13> VTE Drug Contraindication: N/A - Med Ordered <Aliya Craig PA-C - Last Filed: 02/04/24 09:13>
--- NOTE | 2024-02-04 11:14 | HO.PM.IMPN ---
Subjective Subjective Date of Service: 02/04/24 Interval History: seen and examined this morning follow up for buttock infection still with pain right buttock no fever or chills Review of Systems Review of Systems: Yes all other systems are reviewed and are negative Constitutional Constitutional: Denies chills and Denies fever(s) Physical Exam Vital Signs: Vital Signs: Last Vital Signs Temp 97.4 F 02/04/24 07:31 Pulse 54 02/04/24 07:31 Resp 16 02/04/24 07:31 BP 110/60 02/04/24 07:31 Pulse Ox 96 02/04/24 07:31 O2 Del Method Room Air 02/04/24 07:31 BMI result Body Mass Index 29.5 Appearing in no acute distress\ lung sounds are clear to auscultation heart regular rate rhythm, clear S1, S2 positive bowel sounds, abdomen is soft, nontender neuro patient is alert x3, no focal deficits Right buttock surgical wound and buttock crease Objective Data Active Medications Acetaminophen (Acetaminophen 325 Mg Tablet) 975 mg PO Q6H PRN PRN Reason: Pain, Moderate(Pain Scale 4-6) Last Admin: 02/04/24 06:57 Dose: 975 mg Documented By: MICHAEL Heparin Sodium (Porcine) (Heparin Sodium,Porcine 5,000 Unit/Ml Vial) 5,000 unit SUBCUT Q8H [facility] Last Admin: 02/04/24 09:09 Dose: 5,000 unit Documented By: MICHAEL Hydromorphone HCl (Hydromorphone Hcl 0.5 Mg/0.5 Ml Syringe) 0.5 mg IVPUSH Q4H PRN; Protocol PRN Reason: Pain, Severe (Pain Scale 7-10) Last Admin: 02/04/24 09:09 Dose: 0.5 mg Documented By: MICHAEL Piperacillin Sod/Tazobactam (Sod 3.375 gm/ Sodium Chloride) 50 mls @ 100 mls/hr IV Q6H [facility] Last Infusion: 02/04/24 09:41 Dose: Infused Documented By: MICHAEL Vancomycin HCl 1,000 mg/ (Sodium Chloride) 270 mls @ 270 mls/hr IV Q8H [facility] Last Infusion: 02/04/24 05:40 Dose: Infused Documented By: COTTERRANCE Ondansetron HCl (Ondansetron Hcl 4 Mg/2 Ml Vial) 4 mg IVPUSH Q6H PRN PRN Reason: Nausea and Vomiting Last Admin: 02/04/24 06:57 Dose: 4 mg Documented By: MICHAEL Oxycodone HCl (Oxycodone Hcl Immed Release 5 Mg Tablet) 10 mg PO Q4H PRN PRN Reason: Pain, Moderate(Pain Scale 4-6) Last Admin: 02/04/24 10:53 Dose: 10 mg Documented By: MICHAEL Pharmacy Consult (Consult Rx Vancomycin Dosing) 1 each MISCELLANE DAILY PRN PRN Reason: Consult order Sodium Chloride (0.9 % Sodium Chloride Flush 3 Ml Syringe) 3 ml IVFLUSH QSHIFT [facility] Last Admin: 02/04/24 06:58 Dose: Not Given Documented By: MICHAEL Non-Admin Reason: IV Running Labs 02/03/24 06:02 02/04/24 05:08 Labs: Laboratory Results - last 24 hr 02/04/24 05:08 Hold Purple Top SEE NOTE Estim Creat Clear Calc 124.5 Estimated GFR > 60 Microbiology Microbiology Results: Microbiology 02/02/24 Unknown Gram Stain - Final Buttock Right Routine Culture - Preliminary Staphylococcus aureus Assessment and Plan (1) Reactive thrombocytosis: Status: Acute (2) Anemia: Status: Acute Plan 28 year old female who presents with chills and swelling of right buttock three weeks after abdominoplasty and fat transfer to b/l buttocks done in the [place] Staphylococcus aureus Buttock wound On vancomycin and Zosyn Follow final cultures Id consult Sepsis secondary to right buttock cellulitis s/p cosmetic surgery: erythema and swelling of right buttock improving Continue IV antibiotic therapy with vancomycin and Zosyn Blood cultures negative Surgery following> s/p I&D 02/02/24, 500cc pus drained from cavity Acute on chronic normocytic anemia reports history of iron deficiency requiring blood transfusions last transfusion after surgery three weeks ago HH stable iron 9/TIBC 140/% 6 s/p iron transfusion Thrombocytosis, reactive. Secondary to above, trending down follow CBC dvt ppx - heparin Attending - Dr. Sosa requires ongoing inpatient stay for management of right buttock infection and anemia Quality Stroke Does the patient have a stroke diagnosis?: No VTE Prior VTE?: No VTE Risk Level:: Medical - moderate - high VTE Device Contraindication: Treatment Not Indicated VTE Drug Contraindication: N/A - Med Ordered
[2024-02-04 12:33] LABS: Vancomycin Random 12.9 mcg/mL (15-20)
--- NOTE | 2024-02-04 12:46 | HE.PHANOTE ---
VANCO DOSE ADJUSTMENT BASED ON LEVEL OF 12.9 AND SCR 0.66 DOSE CONTINUED AT 1000 Q 8. NEXT LEVEL @ 02/04 1100
[2024-02-04 15:26] VITALS: BP 115/65; PULSE 89; RESP 16; TEMP 36.6; O2SAT 99
[2024-02-04] MEDS: 0.9 % Sodium Chloride Flush 3 ML SYRINGE IVFLUSH ×2 (15:47→23:32)
[2024-02-04 19:10] VITALS: BP 115/63; PULSE 75; RESP 16; TEMP 36.6; O2SAT 98
--- NOTE | 2024-02-04 22:52 | P.CNID_ITS ---
History of Present Illness Data of Consult Service Date: 02/04/24 Requesting physician: Iva Gandara Primary Care Provider: DO TEO Edmonds Reason for consult: staph aureus right buttock She presents with chills for two days and discomfort right buttock. She had abdominoplasty and bbl in DR. She has redness and staph aureus wound. She said she had two transfusions after surgery and had transfusions and clots when child born two years ago. Review of Systems 2 Review of Systems: Yes all other systems are reviewed and are negative [facility] Past Medical History Medical History (Updated 02/02/24 @ 08:30 by Ricky Hadley MD) Abscess of right buttock Social History Social History Household Members: Family Housing: House Do you presently have visiting nurse or other home services: No Patient Tobacco Use Status: Never used Tobacco Second Hand Smoke Exposure: No service: No Meds Allergies Allergy/AdvReac Type Severity Reaction Status Date / Time No Known Allergies Allergy Verified 10/05/21 21:26 [No Known Allergies*] Active Medications: Current Medications Acetaminophen (Acetaminophen 325 Mg Tablet) 975 mg PO Q6H PRN PRN Reason: Pain, Moderate(Pain Scale 4-6) Last Admin: 02/04/24 17:22 Dose: 975 mg Heparin Sodium (Porcine) (Heparin Sodium,Porcine 5,000 Unit/Ml Vial) 5,000 unit SUBCUT Q8H SUNITHA Last Admin: 02/04/24 16:01 Dose: 5,000 unit Hydromorphone HCl (Hydromorphone Hcl 0.5 Mg/0.5 Ml Syringe) 0.5 mg IVPUSH Q4H PRN; Protocol PRN Reason: Pain, Severe (Pain Scale 7-10) Last Admin: 02/04/24 21:02 Dose: 0.5 mg Piperacillin Sod/Tazobactam (Sod 3.375 gm/ Sodium Chloride) 50 mls @ 100 mls/hr IV Q6H SUNITHA Last Admin: 02/04/24 22:35 Dose: 100 mls/hr Vancomycin HCl 1,000 mg/ (Sodium Chloride) 270 mls @ 270 mls/hr IV Q8H [facility] Last Infusion: 02/04/24 22:36 Dose: Infused Ondansetron HCl (Ondansetron Hcl 4 Mg/2 Ml Vial) 4 mg IVPUSH Q6H PRN PRN Reason: Nausea and Vomiting Last Admin: 02/04/24 14:23 Dose: 4 mg Oxycodone HCl (Oxycodone Hcl Immed Release 5 Mg Tablet) 10 mg PO Q4H PRN PRN Reason: Pain, Moderate(Pain Scale 4-6) Last Admin: 02/04/24 14:23 Dose: 10 mg Pharmacy Consult (Consult Rx Vancomycin Dosing) 1 each MISCELLANE DAILY PRN PRN Reason: Consult order Sodium Chloride (0.9 % Sodium Chloride Flush 3 Ml Syringe) 3 ml IVFLUSH QSHIFT [facility] Last Admin: 02/04/24 15:47 Dose: 3 ml Home Medications Medication Instructions Recorded Confirmed Last Taken Type acetaminophen 500 mg tablet 1,000 mg PO Q6H PRN Pain 01/31/24 01/31/24 Unknown History Physical Exam 2 Vital Signs: Vital Signs: Last Vital Signs Temp 97.9 F 02/04/24 19:10 Pulse 75 02/04/24 19:10 Resp 16 02/04/24 19:10 BP 115/63 02/04/24 19:10 Pulse Ox 98 02/04/24 19:10 O2 Del Method Room Air 02/04/24 19:10 BMI result Body Mass Index 29.5 Const: General: cooperative HEENT: Head: Yes normal to inspection Face and sinus: Yes normal facial exam Mouth: Normal oral and palatal mucosa present Teeth and gingiva: d entition normal Eyes: General: appearance normal, both eyes and all related structures P upils: Equal, round and reactive pupils present Resp: Effort & Inspection: normal respiratory effort Cardio: Rate: regular rate Rhythm: regular rhythm GI: Palpation (GI): Soft to palpation and nontender : General: Yes no CVA tenderness Back/Spine/Pelvis: Back: no CVA tenderness Skin: General skin exam: no rashes or lesions noted Neuro: General: moves all extremities Cranial nerves: Yes Equal, round and reactive pupils present Extrem: Other: redness right buttock Psych: Appearance: grossly normal Results Labs 02/03/24 06:02 02/04/24 05:08 Labs: BMP 02/04/24 05:08 Creatinine 0.66 Microbiology Microbiology Results: Microbiology 01/30/24 18:35 Blood - Venous Blood Culture - Final No growth after 5 days. 01/30/24 18:34 Blood - Venous Blood Culture - Final No growth after 5 days. 02/02/24 Unknown Buttock Right Gram Stain - Final 02/02/24 Unknown Buttock Right Routine Culture - Preliminary Staphylococcus aureus Assessment and Plan (1) Abscess of right buttock: Status: Acute Concern over staph aureus agree Vancomycin and Zosyn now in case deeper tissue damage but no bacteremia (2) Anemia: Status: Acute (3) Sepsis: Qualifiers: Sepsis type: sepsis due to unspecified organism Sepsis acute organ dysfunction status: without acute organ dysfunction Qualified Code(s): A41.9 - Sepsis, unspecified organism Status: Acute Plan Continue Vancomycin and Zosyn Check HIV test with anemia and consider Hematology consult if negative. Await cultures and possible Doxycycline outpatient if MRSA and sensitive.
[2024-02-05] MEDS: Heparin Sodium,Porcine 5,000 UNIT/ML VIAL 5000 UNIT SUBCUT ×2 (00:41→08:15)
[2024-02-05] MEDS: Acetaminophen 325 MG TABLET 975 MG PO ×2 (03:20→08:41)
[2024-02-05 04:00] VITALS: BP 105/55; PULSE 82; RESP 16; TEMP 36.8; O2SAT 98
[2024-02-05] MEDS: Piperacillin Sodium/Tazobactam 3.375 GM in 0.9 % Sodium Chloride 50 ML IV ×2 (04:05→11:00)
[2024-02-05] MEDS: vancomycin HCL 1,000 MG in 0.9 % Sodium Chloride 250 ML 270 MG IV (05:45)
[2024-02-05 07:20] LABS: Creatinine Clr Calc Pharmacy 141.7; Estimated Glomerular Filt Rate > 60
[2024-02-05 07:37] LABS: HIV AB/AG Nonreactive (Nonreactive); HIV Num 1 0.05 S/CO (0.00-0.99)
[2024-02-05 07:42] VITALS: BP 104/57; PULSE 96; RESP 16; TEMP 36.1; O2SAT 97
[2024-02-05] MEDS: 0.9 % Sodium Chloride Flush 3 ML SYRINGE IVFLUSH (08:15)
--- NOTE | 2024-02-05 08:25 | PM.EVENT ---
Event Note Date of Service: 02/05/24 Event Note: feels well pain and tenderness continue to improve right buttock - much less indurated, scanty drainage from both I and D sites dressings changed pt was not discharged yesterday - cultures grew MRSA dc plans as per Hospitalist but ok to go home from surgical standpoint wound care w/ daily dry dressing changes Time Spent With Patient Time: Total time managing care of this patient today ____ minutes.
[2024-02-05] MEDS: oxyCODONE HCl Immed Release 5 MG TABLET 10 MG PO (11:49)
--- NOTE | 2024-02-05 12:01 | P.DS_ITS ---
DS: Providers Provider Date of Service: 02/05/24 Date of admission: 01/31/24 01:46 Date of discharge: 02/05/24 Primary care physician: Abhijit Aquino DO Consults: 01/31/24 02:21 Consult to General Surgery Routine Consulting Provider: [facility] General Surgeons Reason for consultation: Right buttock cellulitis s/p fat transfer (cosmetic sx) 02/04/24 11:18 Consult to Infectious Diseases Routine Consulting Provider: [facility] Infectious Disease Reason for consultation: Staph aureus in wound culture Attending physician on discharge: Rebel Sosa Discharging clinician: Halie Ambrosio DS: Diagnosis Discharge Diagnosis (1) Abscess of right buttock: Status: Acute (2) Anemia: Status: Acute (3) Sepsis: Status: Acute DS: Summary Hospital Course Hospital Course: From H&P on the day of admission Mariah Marrufo is a 28 years old woman with no significant past medical history presents to the emergency department complaining of marked right buttock swelling diastolic yesterday. She has been also experiencing events of nausea, vomiting and chills over the last few days which she attributes to a stomach bug. She recently underwent a cosmetic surgery: Abdominoplasty and fat transfer to both buttocks 3 weeks ago at [facility]. She denied any headache, chest pain, shortness on breath, sore throat, abdominal pain, diarrhea or pain with urination. In the ED, she was found to have tachycardia and fever 101.0. Blood pressure and oxygen saturation are normal. Blood workup is remarkable for leukocytosis 24.1, hemoglobin 10.2 and thrombocytosis. CRP is elevated. There is no lactic acidosis. LFTs are normal and there are no electrolyte imbalances. test is negative. Abdomen pelvis CT scan showed postsurgical changes of the anterior abdominal wall, edema and fluid at the anterior abdominal wall deep to the abdominal wall musculature, subcutaneous tissue along the mid line back extending into the subcutaneous tissue in the right gluteal region without drainable fluid collections. ED tx: Vancomycin 1750, NS 1 L bolus, Dilaudid 2 mg IV, Zosyn 4.5 g IV, acetaminophen 975 mg p.o. Sepsis secondary to right buttock cellulitis s/p cosmetic surgery: erythema and swelling of right buttock improving. Initial imaging with no obvious drainable fluid collection. Pain and swelling of the right buttock increased on February 01 and she underwent I and D in the OR on 02/01, 500cc pus drained from cavity. Blood cultures negative. wound culture growing MRSA sensitive to tetracyclines. She was seen in consultation by Infectious Diseases who recommended discharge home with oral doxycycline to complete total of 21 days of antibiotics. Overall redness, swelling and pain of the right buttock is improving. Will need daily dressing changes an outpatient follow-up with General surgery. Acute on chronic normocytic anemia reports history of iron deficiency requiring blood transfusions last transfusion after surgery three weeks ago. Iron studies c/w iron deficiency. received one unit of blood 01/31 and IV iron. H/H has remained stable. Recommend outpatient follow-up with PCP. Thrombocytosis, reactive. Secondary to above, trending down. Recommend outpatient follow-up with PCP Time Attestation Discharge Coordination Time (in mins): 38 Quality: Safe Use of Opioids Does Pt have an Active Cancer Diagnosis on the Problem List?: No Quality: Stroke Does the patient have a stroke diagnosis?: No Physical Exam Vital Signs: Vital Signs: Last Vital Signs Temp 97.0 F 02/05/24 07:42 Pulse 96 02/05/24 07:42 Resp 16 02/05/24 07:42 BP 104/57 L 02/05/24 07:42 Pulse Ox 97 02/05/24 07:42 O2 Del Method Room Air 02/05/24 07:42 BMI result Body Mass Index 29.5 Const: General: cooperative, comfortable, no acute distress, alert and awake Nutritional Appearance: average body habitus Orientation/consciousness: patient oriented x3 Resp: Effort & Inspection: normal respiratory effort, able to speak in complete sentences, no respiratory distress and no use of accessory muscles Cardio: Rate: regular rate GI: Other: incision appears clean, dry, no surrounding erythema or drainage Inspection: No distended Palpation (GI): Soft to palpation Skin: Other: buttock dressing changed by surgery this am, no drainage Neuro: General: patient oriented x3, moves all extremities and CN's II-XI intact bilaterally Extrem: General: Yes no pedal edema DS: Data Data Completed and Pending Labs on day of discharge: Laboratory Results - last 24 hr 02/04/24 02/04/24 02/05/24 06:52 12:11 06:52 Creatinine 0.58 Estim Creat Clear Calc 141.7 Estimated GFR > 60 Random Vancomycin 12.9 L HIV 1&2 Ab/P24 Ag 4thGn Nonreactive Discharge Plan Discharge Anticipated Discharge Date/Time: 02/05/24 12:08 Patient Disposition: Home, Self-Care Discharge Diagnosis: Sepsis Right buttock cellulitis and abscess Acute on chronic normocytic anemia Referrals: Abhijit Aquino DO [Primary Care Provider] - 1 Week Ricky Hadley MD [Physician] - 1 Week Discharge Medications: New doxycycline hyclate 100 mg tablet 100 mg PO BID 16 Days Qty: 32 0RF oxycodone 5 mg tablet 5 mg PO Q8H PRN (Reason: pain (scale score 7-10)) Qty: 20 0RF Rx Instructions: Partial Fill upon patient request. Continued acetaminophen 500 mg Tablet 1,000 mg PO Q6H PRN (Reason: Pain) Discharge Orders: Discharge Order (Routine); Ordered 02/05/24 Ordered By: Halie Ambrosio Diet: Advance to usual diet Activity on Discharge: As tolerated Stand Alone Forms: Patient Portal Discharge page Activity Restrictions/Additional Instructions: Dressing changes to both open wounds with fluffs, abdominal dressing and tape while wounds remain open and draining. Change daily and as needed. Ok to shower. Care Plan Goals: Cleanse wound area daily and apply clean dressing Health Concerns: Sepsis Right buttock cellulitis and abscess Acute on chronic normocytic anemia thrombocytosis Plan of Treatment: Follow-up with primary care provider for management of anemia and to ensure platelet levels improve Follow-up with general surgery for wound check Assessment: See discharge summary
[2024-02-05 12:02] LABS: Vancomycin Trough 17.8 mcg/mL (10.0-20.0)
--- NOTE | 2024-02-05 12:36 | MHC.CM.PN ---
PT CLEARED TO DC HOME TODAY WITH NO SERVICES PT TO ARRANGE TRANSPORT
--- NOTE | 2024-02-05 12:57 | PC.NURSE ---
Pt d/c home with family at ~1300. IV removed with catheter tip intact, no s/s infection or bleeding noted. Pt and mom educated on daily dressing changes, verbalized understanding. Sent with dressing supplies.
== END 2024-02-05 12:58 | disposition home or self-care (01) | DRG 862 ==
LOC: HO.ED 01-31 01:07 → HO.EDOVER 01-31 01:50 → HO.S3 01-31 03:58
PROVIDERS: Internal Medicine; Nurse Practitioner Acute Care; Nurse Practitioner Family; Physician Assistant Surgical; Surgery; Admitting Provider Internal Medicine; Emergency Provider Emergency Medicine; PCP Student in an Organized Health Care Education/Training Program; Visit Provider Physician Assistant Medical
PROC: 0J990ZZ Drainage of Buttock Subcutaneous Tissue and Fascia, Open Approach (ICD-10-PCS; principal; 2024-02-02 16:10)
DX: T81.42XA Infection following a procedure, deep incisional surgical site, initial encounter (principal); A41.9 Sepsis, unspecified organism; L02.31 Cutaneous abscess of buttock; L03.317 Cellulitis of buttock; D75.838 Other thrombocytosis; D50.9 Iron deficiency anemia, unspecified; B95.62 Methicillin resistant Staphylococcus aureus infection as the cause of diseases classified elsewhere; Z20.822 Contact with and (suspected) exposure to COVID-19
CPT/HCPCS: 0241U; 36415; 74177; 80048; 80053; 80076; 80202; 81001; 82550; 82565; 82728; 83540; 83605; 83615; 84702; 85025; 85027; 85045; 86140; 86850; 86900; 86901; 86920; 87040; 87070; 87077; 87186; 87205; 87389; 99285; J1170; J1596; J1644; J1756; J2250; J2405; J2543; J2704; J2795; J3370; J3371; J7120; P9016; Q9967

== ENCOUNTER → 2024-01-31 01:46 | Outpatient (BNV) | payer MEDICARE, MEDICAID, SELFPAY | PROVIDERS: Admitting Provider Internal Medicine; Emergency Provider Emergency Medicine; PCP Student in an Organized Health Care Education/Training Program; Visit Provider Internal Medicine | DX: L02.31 Cutaneous abscess of buttock (principal); D64.9 Anemia, unspecified; A41.9 Sepsis, unspecified organism | CPT/HCPCS: 99222 ==

== ENCOUNTER → 2024-01-31 01:46 | Outpatient (BNV) | payer MEDICARE, MEDICAID, SELFPAY | PROVIDERS: Admitting Provider Internal Medicine; Emergency Provider Emergency Medicine; PCP Student in an Organized Health Care Education/Training Program; Visit Provider Surgery | DX: L02.31 Cutaneous abscess of buttock (principal) | CPT/HCPCS: 10140; 99024; 99222; 99232; 99499 ==

== ENCOUNTER → 2024-01-31 01:46 | Outpatient (BNV) | payer MEDICARE, MEDICAID, SELFPAY | PROVIDERS: Admitting Provider Internal Medicine; Emergency Provider Emergency Medicine; PCP Student in an Organized Health Care Education/Training Program; Visit Provider Internal Medicine | DX: L02.31 Cutaneous abscess of buttock (principal); D64.9 Anemia, unspecified; A41.9 Sepsis, unspecified organism | CPT/HCPCS: 99222; 99232; 99233; 99239; 99499 ==

== ENCOUNTER 2024-12-24 11:33 | Outpatient (REF) | payer MEDICARE, MEDICAID, SELFPAY ==
--- OUTSIDE RECORDS SUMMARY | 2024-12-24 12:41 | XMS_ITS | Clinical Summary ---
Author Organization [employer] [facility] it Address [address] [place] [address] Care Team Providers Care Performance Consultant Name Role Phone Abhijit Aquino DO Primary Care Provider [phone] Surgical History Surgery Date Site/Laterality Comments TUBAL LIGATION 08/09/2022 PROCEDURE: HISTORICAL TUBAL LIGATION Medical History Medical History Date Comments Bipolar 2 disorder (CMS/HCC) DX: Bipolar 2 disorder (HCC); COMMENT: [employer]vinsoheila counselor every two weeks, hospitalized at [facility] 07/18 due to cutting. Historical Medical DX DX:ADHD; C OMMENT: Focalin, Child and family guidance, 06/22. No meds, asx Chlamydia 03/2013 DX:Chlamydia; CO MMENT: treated wtih Zithromax 1 gram, neg testing 07/23 Constipation 05/08/2011 DX:Constipation Dysmenorrhea in the adolescent 02/03/2009 D X:Dysmenorrhea in the adolescent; COMMENT: resolved Iron deficiency anemia 07/25/2012 DX:Iron d eficiency anemia; COMMENT: 07/22Seen at [facility]. H/H 10.9/33.7 rdw 16.6, mcv 81.6. Started on iron 06/22. Normal labs Ovarian cyst 08/2013 DX:Ovarian cyst; COMMENT: Seen at [facility] Dental abscess 10/2015 DX:Dental absces s; [...] - [place] [address] [place] [id number] Lesia Rossi MD [address] [place] [address] Health Maintenance Due Date Last Done Comments [...] RESULTING AGENCY - 12/13/2021 3:45 PM EST [id number] THINPREP PAP, IMAGED: NEGATIVE FOR SQUAMOUS INTRAEPITHELIAL LESION AND MALIGNANCY . SHIFT IN JOSE M, SUGGESTIVE OF BACTERIAL VAGINOSIS. NOTE: THE PAP TEST IS A SCREENING TEST WITH AN INHERENT FALSE NEGATIVE RATE. AUTOMATED PRESCREENING OF ALL LIQUID BASED SPECIMENS IS PERFORMED BY THE [employer] DiscoveryPREP IMAGING SYSTEM UNLESS OTHERWISE STATED. ALICIA LYLE(ASCP) (CASE ELECTRONICALLY SIGNED 12 13 2021) ADEQUACY: SATISFACTORY ENDOCERVICAL/TRANSFORMATION ZONE COMPONENT ABSENT. SOURCE: THINPREP PAP HPV IF ASCUS, CERVICAL, IMAGED CLINICAL INFORMATION: HPV IF DIAGNOSIS OF ASCUS. -LMP 08/31/21, Z12.4 Aliya Stanford [facility] LAB CYTOLOGY ORDERABLES Final Result HISTORICAL TESTING LAB RESULTING AGENCY from Last 3 Months or Most Recently Relevant to Health Maintenance Care Teams Performance Consultant Relationship Specialty Start Date End Date Abhijit Aquino DO PCP - General Internal Medicine 05/28/22
[2024-12-24 13:05] LABS: MANUAL DIFF FLAG NO
[2024-12-24 13:17] LABS: Basophils Absolute Auto 0.1 X10*3/uL (0.0-0.2); Basophils Percent Auto 0.3 % (0-2); Eosinophils Percent Auto 0.1 % (0-4); Hematocrit 38.4 % (37.0-47.0); Hemoglobin 12.5 g/dl (12.0-16.0); Imm Gran Pct Auto 0.6 % (0.0-0.4); Lymphocytes Absolute Auto 1.8 X10*3/uL (1.2-4.9); Mean Corpuscular HGB Conc 32.6 g/dl (31.0-35.0); Mean Corpuscular Hemoglobin 29.2 pg (27.0-33.0); Mean Corpuscular Volume 89.7 fL (80.0-98.0); Mean Platelet Volume 10.7 fL (9.4-12.3); Monocytes Absolute Auto 0.9 X10*3/uL (0.1-1.2); Monocytes Percent Auto 4.8 % (2-11); Neutrophils Percent Auto 84.2 % (45-73); Platelet Count 395 X10*3/uL (160-400); Red Blood Count 4.28 X10*6/uL (4.20-5.50); Red Cell Distribution Width 14.2 % (11.0-16.0); White Blood Count 17.8 X10*3/uL (4.8-10.8)
== END 2024-12-24 11:34 | disposition home or self-care (01) ==
LOC: HO.HMGCLDS 11:33
PROVIDERS: PCP Student in an Organized Health Care Education/Training Program; Visit Provider Nurse Practitioner Family
DX: J06.9 Acute upper respiratory infection, unspecified (principal); Z86.2 Personal history of diseases of the blood and blood-forming organs and certain disorders involving the immune mechanism
CPT/HCPCS: 36415; 85025; 99212

== ENCOUNTER 2024-12-24 11:33 | Outpatient (AMB) | payer MEDICARE, MEDICAID, SELFPAY ==
[2024-12-24 11:39] VITALS: BP 110/70; PULSE 102; TEMP 36.7; O2SAT 98
--- NOTE | 2024-12-24 11:39 | AM.OFFWIN_ITS ---
Intake Vital Signs 12/24/24 11:39 Height 5 ft 3 in BP 110/70 Blood Pressure Location Rt brachial Position Sitting Pulse 102 H Pulse Source Pulse Oximeter Temp 98.1 F Temp Source Oral Pulse Oximetry (%) 98 Intake Visit Reasons: EP nausea, chills, headache Patient Tobacco Use Status: Never used Tobacco Allergies No Known Allergies [No Known Allergies*] Allergy (Verified 12/24/24 11:39) Do you need a note to return to daycare/school/sports/work: Yes HPI EP nausea, chills, headache HPI Details This is a 29-year-old female patient who presents to the walk-in clinic today with report of a 4-5 day history of headache, nausea, chills, weakness, intermittent dizziness. Denies any fever. Denies any GI or respiratory symptoms. Had testing done at her son's [employer] sales representative office yesterday and was negative for COVID/flu. States that she has a history of anemia, however unfortunately has been without a PCP for some time now. She does have a new patient appointment at the end of this month with a provider through [facility] Medical History Anemia Abscess of right buttock Social History Household Members: Family Housing: House Do you presently have visiting nurse or other home services: No Patient Tobacco Use Status: Never used Tobacco Second Hand Smoke Exposure: No service: No Review of Systems Const All systems reviewed & are unremarkable except as noted in HPI and below Physical Exam HEENT Head: Yes normal to inspection and Yes normocephalic Ears: hearing grossly normal bilaterally General nose exam: Normal external nose present Face and sinus: Yes normal facial exam Neck Neck: Yes no lymphadenopathy Resp Effort & Inspection: normal respiratory effort Auscultation: clear to auscultation bilaterally Cardio Rate: regular rate Rhythm: regular rhythm Skin General skin exam: no rashes or lesions noted Neuro General: gait normal Cognition (Neuro): normal cognition Extrem General: Yes no clubbing, cyanosis or edema Psych Appearance: grossly normal Mental Status: mental status grossly normal Speech and movement: Normal speech and movement present Assessment & Plan Assessment & Plan (1) History of anemia: Code(s): Z86.2 - Personal history of diseases of the blood and blood-forming organs and certain disorders involving the immune mechanism Plan: Will obtain updated CBC. Patient aware she will be notified with results once these are available. He is establishing care with a new PCP later this month. Viral panel was done yesterday and was negative. Discussed with patient that presentation is consistent with a viral URI, and conservative measures are recommended. I prescribed her naproxen to take for any aches/pain/headache. We reviewed indications, use, possible side effects of this. I also encouraged hydration and electrolyte intake as well as bland diet to be advanced as tolerated. If he does not improve with time and conservative measures, or if symptoms worsen/new symptoms develop, she can certainly return to the clinic for further evaluation. She verbalizes understanding and agrees to plan. (2) Viral upper respiratory infection: Code(s): J06.9 - Acute upper respiratory infection, unspecified Plan: As above Orders: Orders Complete Blood Count Auto Diff Today Z86.2 - Personal history of diseases of the blood and blood-forming organs and certain disorders involving the immune mechanism Medications: New naproxen Take one tablet up to twice a day as needed for pain/headache. 250 mg PO BID 7 days PRN 14 tabs 0RF pain J06.9 - Acute upper respiratory infection, unspecified Discontinued doxycycline hyclate Discontinued Reason: Patient Completed Course 100 mg PO BID 16 days 32 tabs 0RF Coding Level of Care Code Est Pt Level 4 (24287) Diagnoses History of anemia Z86.2 Viral upper respiratory infection J06.9
--- OUTSIDE RECORDS SUMMARY | 2024-12-24 12:19 | XMS_ITS | Clinical Summary ---
Author Organization [facility] it Address [address] [place] [address] Care Team Providers Care Executive Pilot Name Role Phone Abhijit Aquino DO Primary Care Provider [phone] Surgical History Surgery Date Site/Laterality Comments TUBAL LIGATION 08/09/2022 PROCEDURE: HISTORICAL TUBAL LIGATION Medical History Medical History Date Comments Bipolar 2 disorder (CMS/HCC) DX: Bipolar 2 disorder (HCC); COMMENT: [employer] counselor every two weeks, hospitalized at [facility] 07/18 due to cutting. Historical Medical DX DX:ADHD; C OMMENT: Focalin, Child and family guidance, 06/22. No meds, asx Chlamydia 03/2013 DX:Chlamydia; CO MMENT: treated wtih Zithromax 1 gram, neg testing 07/23 Constipation 05/08/2011 DX:Constipation Dysmenorrhea in the adolescent 02/03/2009 D X:Dysmenorrhea in the adolescent; COMMENT: resolved Iron deficiency anemia 07/25/2012 DX:Iron d eficiency anemia; COMMENT: 07/22Seen at [facility]. H/H 10.9/33.7 rdw 16.6, mcv 81.6. Started on iron 06/22. Normal labs Ovarian cyst 08/2013 DX:Ovarian cyst; COMMENT: Seen at [facility] ED Dental abscess 10/2015 DX:Dental absces s; COMMENT: left lower molars Anxiety state DX:Anxiety state Asthma DX:Asthma Migraine without aura DX:Migrain e without aura Rh negative state in antepar nena period DX:Rh negative state in ante period Obesity DX:Obesity Family History Medical History Relation Name Comments No Known Problems Brother x 2 Seizures Daughter Hypertension Father Prostate cancer Maternal Grandfather Diabetes Maternal Grandmother type 2 Cervical cancer Mother 4 surgeries, chemo and radiation diagnosed 2008 Migraines Mother No Known Problems Sister x 2 Asthma Son Bipolar disorder Uncle Breast cancer Neg Hx Colon cancer Neg Hx Ovarian cancer Neg Hx Relation Name Status Comments Brother x 2 Alive Daughter Father Alive Maternal Grandfather Alive Maternal Grandmother Alive Mother Alive Paternal Grandfather unknown Other Paternal Grandmother unknown Other Sister x 2 Alive Son Uncle Social History Tobacco Use Types Packs/Day Years Used Date Smoking Tobacco: Never Smokeless Tobacco: Never Alcohol Use Standard Drinks/Week Comments No 0 (1 standard drink = 0.6 oz pur e alcohol) Comments Unknown Sex and Gender Information Value Date Recorded Sex Assigned at Female 09/13/2024 11:19 AM EST Legal Sex Female 2:11 AM EST Gender Identity Female 09/13/2024 11:19 AM EST Sexual Orientation Choose not to disclose 2023 11:19 AM EST Obstetrics History Last Filed Vital Signs Vital Sign Reading Time Taken Comments Blood Pressure 106/65 02/17/2024 10:48 AM EDT Pulse 72 02/17/2024 10:48 AM EDT Temperature - - Respiratory Rate - - Oxygen Saturation - - Inhaled Oxygen Concentration - - Weight 69.4 kg (153 lb) 02/17/2024 10:48 AM EDT Height 160 cm (5' 3 ) 02/17/2024 10:48 AM EDT Body Mass Index 27.1 02/17/2024 10:48 AM EDT Plan of Treatment Upcoming Encounters Date Type Department Care Team (Late st Contact Info) Description 01/05/2025 9:30 AM EST Office Visit Internal Medicine - [facility] [place] [address] Lesia Rossi MD [address] [place] [address] Health Maintenance Due Date Last Done Comments Depression Screening 10/13/2022 HIV Screening 10/13/2022 Hepatitis C Screening 10/13/2022 Medicare Annual Wellness Visit 10/13/2022 Social Influencers of Health Screening 10/13/2022 COVID-19 Vaccine ( season) 2024 12/13/2021, 05/07/2021, 04/11/2021 Influenza Vaccine (#1) 2024 , 08/24/2020, 10/10/2016, Additional history exists Cervical Cancer Screening: Pap Smear 11/29/2024 11/29/2021, 04/29/2019 DTaP,Tdap,and Td Vaccines (11 - Td or Tdap) 05/16/2032 05/16/2022, 09/21/2020, 10/06/2017, Additional history exists Hepatitis B Vaccines Completed 05/27/1997, 1996, 1996 HIB Vaccines Completed 06/16/2006, 07/1998, 05/27/1997, Additional history exists IPV Vaccines Completed 06/16/2006, 08/11, 11/18/1997, Additional history exists Varicella Vaccines Completed 02/03/2009, 09/01/2000 HPV Vaccines Completed 07/10/2009, 01/09, 07/17/2007 Meningococcal ACWY Vaccine Completed 08/02/2014, MMR Vaccines Completed 09/21/2015, 08/11, 05/27/1997 Pneumococcal Vaccine: Pediatrics (0 to 5 Years) and At-Risk Patients (6 to 64 Years) Aged Out 06/25/2018 No longer eligible based on patient's age to complete this topic Hepatitis A Vaccines Aged Out No long er eligible based on patient's age to complete this topic Meningococcal B Vacine Aged Out No lo nger eligible based on patient's age to complete this topic RSV Immunization Patients Under 20 months Aged Out No longer eligible based on patient's age to complete this topic Procedures Procedure Name Priority Date/Time Associated Diagnosis Comments PAP SMEAR Routine 11/29/2021 from Last 3 Months or Most Recently Relevant to Health Maintenance Results * Pap smear (11/29/2021) 11/29/2021 Narrative HISTORICAL TESTING LAB RESULTING AGENCY - 12/13/2021 3:45 PM EST [id number] THINPREP PAP, IMAGED: NEGATIVE FOR SQUAMOUS INTRAEPITHELIAL LESION AND MALIGNANCY . SHIFT IN JOSE M, SUGGESTIVE OF BACTERIAL VAGINOSIS. NOTE: THE PAP TEST IS A SCREENING TEST WITH AN INHERENT FALSE NEGATIVE RATE. AUTOMATED PRESCREENING OF ALL LIQUID BASED SPECIMENS IS PERFORMED BY THE [employer]span[employer]P IMAGING SYSTEM UNLESS OTHERWISE STATED. ALICIA LYLE(ASCP) (CASE ELECTRONICALLY SIGNED 12 13 2021) ADEQUACY: SATISFACTORY ENDOCERVICAL/TRANSFORMATION ZONE COMPONENT ABSENT. SOURCE: THINPREP PAP HPV IF ASCUS, CERVICAL, IMAGED CLINICAL INFORMATION: HPV IF DIAGNOSIS OF ASCUS. -LMP 08/31/21, Z12.4 Aliya [facility] LAB CYTOLOGY ORDERABLES Final Result HISTORICAL TESTING LAB RESULTING AGENCY from Last 3 Months or Most Recently Relevant to Health Maintenance Care Teams Executive Pilot Relationship Specialty Start Date End Date Abhijit Aquino DO PCP - General Internal Medicine 05/28/22
== END 2024-12-24 12:31 | disposition home or self-care (01) ==
PROVIDERS: PCP Student in an Organized Health Care Education/Training Program; Visit Provider Nurse Practitioner Family
DX: Z86.2 Personal history of diseases of the blood and blood-forming organs and certain disorders involving the immune mechanism (principal); J06.9 Acute upper respiratory infection, unspecified

== ENCOUNTER 2025-06-22 15:55 | Emergency (ER) | payer MEDICARE, MEDICAID, SELFPAY ==
--- NOTE | 2025-06-22 15:57 | ED.GENADULT ---
HPI - General Adult General Chief complaint: General Medical Stated complaint: face swelling, blurred vision, lt side numbness Time Seen by Provider: 06/22/25 20:32 Source: patient Mode of arrival: ambulatory Limitations: no limitations History of Present Illness ED Provider: Dank COOMBS HPI narrative: The patient is a 30-year-old female presenting to the ED reporting since Friday she has been experiencing irritation sensation of her eyes with associated blurred vision, swelling of the bilateral eyelids, headache described as pressure, and bilateral conjunctival injection, without associated purulent discharge, tearing, pruritus, double vision, vision loss, floaters, flashes, fever/chills, painful EOMs, sinus congestion, cough, shortness of breath, recent trauma, or recent sick contacts. The patient reports symptoms began in the morning on Friday and Friday but then improve throughout the course of the day. Patient reports today symptoms were more severe in the morning and persisted throughout the day. In the ED patient reports left-sided swelling has improved however right side eyelid swelling persists. The patient reports a history of migraines but reports this is presenting differently. Patient reports she works as a [employer], denies recently caring for any patient is a similar symptoms. The patient has not taken any OTC analgesics, eyedrops, or anti allergy medications. Related Data Previous Rx's ?Medication ?Instructions ?Recorded naproxen 250 mg tablet 250 mg PO BID PRN pain 7 days #14 12/24/24 tabs diphenhydramine HCl 25 mg capsule 25 mg PO TID PRN allergy symptoms 06/22/25 (Benadryl) #14 caps famotidine 20 mg tablet (Pepcid) 20 mg PO BID 5 days #10 tabs 06/22/25 loteprednol etabonate 0.2 % eye 1 drp ophthalmic (eye) QID #5 mL 06/22/25 drops,suspension Allergies Allergy/AdvReac Type Severity Reaction Status Date / Time No Known Allergies (No Known Allergy Verified 06/22/25 16:00 Allergies*) Review of Systems Review of Systems: Yes all other systems are reviewed and are negative PMFSH Past Medical History Medical History Anemia Abscess of right buttock Social History Social History (Reviewed 12/24/24 @ 12:02 by PORTER Knowles Household Members: Family Housing: House Do you presently have visiting nurse or other home services: No Patient Tobacco Use Status: Never used Tobacco Second Hand Smoke Exposure: No Advance Directives: No Advance Directives Information Provided: No Do you have a plan to hurt others: No Plan service: No Physical Exam ED Vital Signs: Vital Signs - 24 hr 06/22/25 15:58 06/22/25 19:54 Temperature 98.4 F 98.1 F Pulse Rate 85 85 Respiratory Rate 16 16 Blood Pressure 144/66 H 140/82 H Pulse Oximetry 97 99 Oxygen Delivery Method Room Air Room Air BMI result Body Mass Index 30.3 CONSTITUTIONAL: The patient appears non-toxic, well nourished and in no acute distress. Vital signs as documented. HEAD: Atraumatic, normocephalic. EYES: EOMs intact and nonpainful, pupils equal, round, and reactive to light and accommodation, conjunctiva minimally injected bilaterally, no exudate. There is no surrounding erythema, no findings consistent with periorbital or orbital cellulitis. Fluorescein staining reveals no corneal abrasion or corneal foreign body bilaterally, negative [place] sign. IOPs are equal and normal bilaterally, 19.6 on the right, and 20.3 on the left. ENT: Nares patent, no discharge. Airway patent, no audible stridor, visible mucosa is pink and moist without noted lesions. NECK: trachea is midline, there is palpable cervical lymphadenopathy noted bilaterally, greater on the left, no other obvious masses or gross abnormalities. CHEST: Symmetric movement, normal appearance. LUNGS: Non-labored work of breathing. CARDIAC: No evidence of hypoperfusion. ABDOMEN: Nondistended, no obvious injury. : Deferred. EXTREMITIES: Moves all extremities spontaneously without reported pain. No obvious injury or deformity noted. NEURO: Alert and oriented x3, CN II-XII appear grossly intact. Cerebellar Functioning grossly intact. Speech clear and appropriate. SKIN: Warm, dry, color appropriate. No rashes or lesions noted. Course Course Course Narrative: This is a rapid medical exam performed by Sina Gage NP: Additional HPI, ROS, PE not included below will be deferred to primary provider. Patient is a 30-year-old female presenting to the ED with complaint of facial swelling, headache and blurred vision since waking this morning. Facial numbness as well. States initially left side of face was more swollen, now R side is more swollen. Nausea and increased thirst. BP in triage 144/66 Plan: viral serology, labs, visual acuity Medications Administered Discontinued Medications Generic Name Dose Route Start Last Admin Trade Name Alla PRN Reason Stop Dose Admin Acetaminophen 975 mg 06/22/25 21:15 06/22/25 21:25 Acetaminophen 325 Mg Tablet PO 06/22/25 21:16 975 mg ONCE ONE Administration Famotidine 20 mg 06/22/25 21:15 06/22/25 21:25 Famotidine 20 Mg Tablet PO 06/22/25 21:16 20 mg ONCE ONE Administration Ibuprofen 600 mg 06/22/25 21:15 06/22/25 21:24 Ibuprofen 600 Mg Tablet PO 06/22/25 21:16 600 mg ONCE ONE Administration Tetracaine HCl 3 drop 06/22/25 21:15 06/22/25 21:24 Tetracaine Hcl 0.5% Oph Melonie 5 Ml Drops EYE-BOTH 06/22/25 21:16 3 drop ONCE ONE Administration Medical Decision Making Medical Decision Making [facility] Narrative: 10:10 PM 06/22/2025 (Vincenzo COOMBS): The patient is a 30-year-old female presenting to the ED with 3 days of eyelid swelling, headache, blurry vision, and bilateral mild conjunctival injection. Exam shows mild bilateral conjunctival injection, with mild eyelid swelling on the right, no evidence of periorbital or orbital cellulitis, no evidence of acute angle closure glaucoma, no corneal foreign body or abrasion, bilateral presentation is not consistent with retinal detachment or retinal tear. Neck exam reveals cervical anterior lymphadenopathy. The patient's presentation is consistent with allergic versus viral conjunctivitis. Patient will be discharged with Pepcid, prn Benadryl, and steroid drops. 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 Admission/Observation Consideration of admission/observation: Escalation of care including admission/observation considered Lab Data [facility] Lab Attestation statement: I reviewed the patient's lab results. 06/22/25 16:10 06/22/25 16:10 Labs: Lab Results 06/22/25 Range/Units 16:10 WBC 6.3 (4.8-10.8) X10*3/uL RBC 4.08 L (4.20-5.50) X10*6/uL Hgb 12.3 (12.0-16.0) g/dl Hct 37.1 (37.0-47.0) % MCV 90.9 (80.0-98.0) fL MCH 30.1 (27.0-33.0) pg MCHC 33.2 (31.0-35.0) g/dl RDW 14.7 (11.0-16.0) % Plt Count 348 (160-400) X10*3/uL MPV 9.9 (9.4-12.3) fL Immature Gran % (Auto) 0.2 (0.0-0.4) % Neut % (Auto) 63.2 (45-73) % Lymph % (Auto) 28.7 (20-40) % Kingfisher % (Auto) 5.9 (2-11) % Eos % (Auto) 1.4 (0-4) % Baso % (Auto) 0.6 (0-2) % Lymph # (Auto) 1.8 (1.2-4.9) X10*3/uL Kingfisher # (Auto) 0.4 (0.1-1.2) X10*3/uL Eos # (Auto) 0.1 (0.0-0.4) X10*3/uL Baso # (Auto) 0.0 (0.0-0.2) X10*3/uL Abs Immat Gran (auto) 0.01 (0.00-0.03) X10*3/uL Absolute Neuts (auto) 4.0 (2.0-8.3) x10*3/uL Absolute Nucleated RBC 0.000 (0.0-0.012) X10*3/uL Nucleated RBC % (auto) 0.0 (0.0-0.2) /100WBC Sodium 142 (135-145) mmol/L Potassium 3.9 (3.3-5.1) mmol/L Chloride 112 H (96-108) mmol/L Carbon Dioxide 24 (22-29) mmol/L Anion Gap 10 L (12-20) BUN 14 (9-16) mg/dL Creatinine 0.67 (0.5-1.4) mg/dL Estim Creat Clear Calc 122.2 Estimated GFR > 60 Random Glucose 77 (60-115) mg/dL Calcium 9.0 D (8.4-10.2) mg/dL Total Bilirubin 0.3 (0.0-1.0) mg/dL AST 23 (5-31) U/L ALT 12 (0-31) U/L Alkaline Phosphatase 72 (39-117) U/L Total Protein 7.2 (6.5-8.0) g/dL Albumin 4.6 (3.5-5.0) g/dL Beta HCG, Quant < 2 mIU/mL Influenza Type A (PCR) NEGATIVE (Negative) Influenza Type B (PCR) NEGATIVE (Negative) RSV RNA Qual (PCR) NEGATIVE (Negative) SARS-CoV-2 RNA (RT-PCR) NEGATIVE (Negative) Prescription Management I considered prescription management with: Pain Medication and Antibiotic Discharge Plan Discharge Clinical Impression: Conjunctivitis Qualifiers: Conjunctivitis type: acute Acute conjunctivitis type: viral Laterality: bilateral Qualified Code(s): B30.9 - Viral conjunctivitis, unspecified Patient Disposition: Home, Self-Care Instructions: Conjunctivitis (ED) Additional Instructions: Thank you for choosing [facility]'s Emergency Department for your care today. Thankfully your evaluation today showed no evidence of a dangerous cause for your eyelid swelling and eye irritation. Your symptoms are most consistent with viral or allergic conjunctivitis. At this time there is no indication for admission to the hospital or continued ED observation, and it is safe to discharge you home. Please instill the steroid eyedrops prescribed as directed until finished. Please take Pepcid as prescribed until finished. Please take Benadryl as needed for additional symptoms. You may take alternating (staggered) doses of ibuprofen 600mg and Tylenol 1000mg every 4 hours as needed for any additional pain. Please stay well hydrated and get plenty of rest. Please follow up with the your parking enforcement technician for re-evaluation of your eye symptoms. Please also follow up with your primary care physician for re-evaluation, additional management of your symptoms, and continued preventative care. If you do not have a primary care physician, please call the [facility] at [phone] to establish a new primary care physician. While waiting to establish your new primary care physician, you can call our Walk[facility]in [facility] at [phone] for non-emergency needs. Please return to the emergency department if you develop a severe or sudden change in your symptoms, painful movement of your eye, inability to open your eye, partial or total vision loss, a fever over 100.4 that does not improve with Tylenol or Ibuprofen, recurrent vomiting, or any other new or worsening symptoms or concerns. Prescriptions: New famotidine [Pepcid] 20 mg tablet 20 mg PO BID 5 Days Qty: 10 0RF diphenhydramine HCl [Benadryl] 25 mg capsule 25 mg PO TID PRN (Reason: allergy symptoms) Qty: 14 0RF loteprednol etabonate 0.2 % drops,suspension 1 drp ophthalmic (eye) QID Qty: 5 0RF No Action naproxen 250 mg tablet 250 mg PO BID PRN (Reason: pain) 7 Days Qty: 14 0RF Rx Instructions: Take one tablet up to twice a day as needed for pain/headache. Referrals: Abhijit Aquino DO [Primary Care Provider, Family Practice] Clinical Impression: Conjunctivitis Print Language: Lithuanian
[2025-06-22 15:58] VITALS: BP 144/66; PULSE 85; RESP 16; TEMP 36.9; O2SAT 97; BMI 30.3
[2025-06-22 16:16] LABS: MANUAL DIFF FLAG NO
[2025-06-22 16:17] LABS: Hematocrit 37.1 % (37.0-47.0); Hemoglobin 12.3 g/dl (12.0-16.0); Imm Gran Abs Auto 0.01 X10*3/uL (0.00-0.03); Imm Gran Pct Auto 0.2 % (0.0-0.4); Lymphocytes Absolute Auto 1.8 X10*3/uL (1.2-4.9); Mean Corpuscular HGB Conc 33.2 g/dl (31.0-35.0); Mean Corpuscular Hemoglobin 30.1 pg (27.0-33.0); Mean Corpuscular Volume 90.9 fL (80.0-98.0); NRBC Abs Auto 0.000 X10*3/uL (0.0-0.012); NRBC Pct Auto 0.0 /100WBC (0.0-0.2); Platelet Count 348 X10*3/uL (160-400); Red Blood Count 4.08 X10*6/uL (4.20-5.50); White Blood Count 6.3 X10*3/uL (4.8-10.8)
[2025-06-22 16:43] LABS: Alanine Aminotransferase 12 U/L (0-31); Albumin Level 4.6 g/dL (3.5-5.0); Alkaline Phosphatase 72 U/L (39-117); Anion Gap 10 (12-20); Aspartate Amino Transferase 23 U/L (5-31); Blood Urea Nitrogen 14 mg/dL (9-16); Calcium 9.0 mg/dL (8.4-10.2); Carbon Dioxide 24 mmol/L (22-29); Chloride 112 mmol/L (96-108); Creatinine Clr Calc Pharmacy 122.2; Estimated Glomerular Filt Rate > 60; Potassium 3.9 mmol/L (3.3-5.1); Sodium 142 mmol/L (135-145); Total Protein 7.2 g/dL (6.5-8.0)
[2025-06-22 17:01] LABS: Resp Syncy Virus RNA Qual PCR NEGATIVE (Negative); SARS COV2 PCR INHOUSE NEGATIVE (Negative)
[2025-06-22 19:54] VITALS: BP 140/82; PULSE 85; RESP 16; TEMP 36.7; O2SAT 99
--- NOTE | 2025-06-22 19:57 | PC.NURSE ---
Pt reporting she woke up Friday with a swollen face, and blurry vision. Denies tooth pain, denies recent trauma or sickness. Pt stated on Topramate 15 days ago. Had lasik eye surgery 3 years ago. 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
--- OUTSIDE RECORDS SUMMARY | 2025-06-22 19:59 | XMS_ITS | Clinical Summary ---
Author Organization [facility] [address] Address [address] [place] [address] Phone Care Team Providers Care [employer] Name Role Phone Lesia Rossi MD Primary Care Provider [phone] Allergies No known active allergies Medications albuterol HFA (ProAir HFA) 90 mcg/actuation inhaler Inhale 2 puffs by mouth every 4 (four) hours if needed for wheezing or shortness of breath. 8.5 g 5 01/05/20 26 Active amitriptyline (ELAVIL) 25 mg tablet Take 1 tablet (25 mg total) by mouth 1 (one) time each day. 30 tablet 2 5 03/31/20 26 Active rizatriptan (MAXALT) 10 mg tablet Take 1 tablet (10 mg total) by mouth 1 (one) time if needed for migraine (may repeat x1). May repeat in 2 hours if unresolved. Do not exceed 30 mg in 24 hours. 9 tablet 5 03/31/20 26 Active magnesium oxide (MAG-OX) 400 mg magnesium tablet Take 1 tablet (400 mg total) by mouth 1 (one) time each day. 30 tablet 2 5 Active riboflavin (VITAMIN B2) 400 mg tablet Take 1 tablet (400 mg total) by mouth 1 (one) time each day. 60 tablet 2 5 Active ergocalciferol (VITAMIN D-2) 1,250 mcg (50,000 unit) capsule Take 1 capsule (50,000 Units total) by mouth 1 (one) time per week. 4 each 5 04/01/20 26 Active rimegepant (NURTEC) 75 mg dispersible tabletIndication s:Chronic migraine with aura without status migrainosus, not intractable Take 1 tablet (75 mg total) by mouth 1 (one) time if needed for migraine. 8 tablet 3 5 06/26/20 25 Active topiramate (TOPAMAX) 25 mg tablet Take 1 tablet (25 mg total) by mouth 1 (one) time each day for 7 days, THEN 1 tablet (25 mg total) 2 (two) times a day for 7 days, THEN 2 tablets (50 mg total) 2 (two) times a day. 261 each 5 08/09/20 25 Active Active Problems Problem Noted Date Diagnosed Date Elevated LDL cholesterol level 01/18/2025 Assessment & Plan (01/18/2025 10:21 AM EDT): - LDL cholesterol level is 106 mg/dL (target is less than 100 mg/dL) - Advised to adopt a Mediterranean diet, reducing intake of trans fats, saturated fats, and high-sodium snacks - Encouraged regular physical activity Menorrhagia with regular cycle 01/18/2025 Assessment & Plan (01/18/2025 10:21 AM EDT): - Reports heavy menstrual periods, sometimes requiring two pads - History of trying various control methods (Nexplanon, Depo-Provera) which were ineffective or worsened symptoms - Referral to SYSTEM DESIGNER for further evaluation and management Annual physical exam 01/05/2025 Assessment & Plan (01/05/2025 11:15 AM EST): Patient is a 29 y.o. female with pmhx bipolar 2 disorder, PTSD who presents for annual physical. Vital signs and physical exam wnl - Overdue for a Pap smear by 1 month - Last physical exam in September 2024 - Last eye and dental exams yesterday - Referral to a worksite wellness practitioner for Pap smear - Blood work will be ordered to assess overall health status - Advised to fast after midnight for blood work - Advised to use Q-tips only on the outer part of ears to prevent earwax accumulation - Open to STI testing today Iron deficiency anemia 01/05/2025 Assessment & Plan (01/18/2025 10:20 AM EDT): - Slightly low iron levels, normal ferritin - Elevated platelet count may be related to iron deficiency - Advised to continue consuming a diet rich in iron and take vitamins with additional iron - Recommended adequate hydration to prevent constipation associated with iron supplementation -Needs to follow with [facility] to discuss menorrhagia Assessment & Plan (01/05/2025 11:16 AM EST): - History of anemia, likely due to heavy menstrual periods - Blood work will be ordered to check iron levels Mild intermittent asthma 01/05/2025 Assessment & Plan (01/18/2025 10:20 AM EDT): - Currently using an albuterol inhaler (last prescribed on January 05, 2024) - Reports seasonal worsening of asthma - Advised to continue using the albuterol inhaler as needed and ensure an adequate supply Assessment & Plan (01/05/2025 11:16 AM EST): - History of asthma - Currently has an albuterol inhaler at home - New prescription for an albuterol inhaler will be provided Migraine without status migrainosus, not intract able 01/05/2025 Assessment & Plan (01/18/2025 10:19 AM EDT): - Reports frequent migraines (approx. 10 episodes between last month and mid- January) - Experiences aura symptoms and severe pain, often requiring a dark room for relief - Using Advil (ibuprofen) 400 mg with inconsistent relief - Sumatriptan will be prescribed for acute migraine episodes - Discussed potential side effects - Referral to neurology for further evaluation and potential prophylactic treatment - Seek immediate medical attention at the emergency room if severe symptoms persist despite medication Assessment & Plan (01/05/2025 11:17 AM EST): - History of migraines - Experiencing them more frequently lately - Follow-up appointment will be scheduled to discuss further Bipolar 2 disorder ([facility] V24, [facility] V28) Assessment & Plan (01/05/2025 11:18 AM EST): - History of bipolar 2 disorder - Not currently on any medications for it Encounters Date Type Department Care Team Description 06/01/2025 12:00 PM EDT - 06/01/2025 11:59 PM EDT Hospital Encounter [facility] MRI [address] [place] [address] Chronic migraine with aura without status migrainosus, not intractable Discharge Disposition: Home or Self Care 05/27/2025 8:30 AM EDT Telemedicine [facility] [address] [address] Zofia Rodriguez MD Chronic migraine with aura without status migrainosus, not intractable (Primary Dx) 03/31/2025 8:50 AM EDT Consult [facility] [address] [address] Zofia Rodriguez MD Chronic migraine with aura without status migrainosus, not intractable; Vitamin D deficiency from Last 3 Months Immunizations Name Administration Dates Next Due DTP 11/18/1997, 7,1996,06/16 DTaP (Infanrix) 6wks to less than 7yo 02/19/2001 [id number] (Pentacel) 2mo to less than 5yo 06/16/2006,11/18/1997,05/27/1997,08/30 H1N1 Inj Preservative Free 10/02/2009 HPV, Quadrivalent 07/10/2009,02/03/2009,07/17/20 07 Hepatitis B Pediatric (Enger ix B; Recombivax HB) to less than 20 yo 05/27/1997,1996,1996 IPV Inactivated polio (Ipol) 6wks and older 11/18/1997 Influenza Quadravalent, MDCK , 0.5ml, preservative free (Flucelvax) 6mo and older 09/12/2022,08/24/2020 Influenza trivalent, 0.5mL, preservative free (Fluarix; FluLaval; Fluzone) ages 6mo and older (Afluria) 3 years and older 08/23/2011 Influenza trivalent, with pr eservative (Fluzone; Afluria) 6mo and older 10/10/2016,08/02/2014,07/19/2013,07/17 MMR, measles mumps and rubel la Live (Priorix; M-M-R II) 12mo and older 09/21/2015,09/01/2000,05/27/1997 Meningococcal MCV4P 08/02/2014,07/17/2007 OPV 09/01/2000,05/27/1997,1996 PPD Test 05/26/2019,04/29/2018 HALKAR SARS-CoV-2 COVID-19, mRNA, LNP-S, preservative free 05/07/2021 Pneumococcal conjugate 13 va lent (Prevnar 13, PCV13) 2mo and older 06/25/2018 Tdap Tetanus diptheria acell ular pertussis (Boostrix; Adacel) 7yo and older 05/16/2022,09/21/2020,10/06/2017,02/03 Varicella live (Varivax) 12m o and older 02/03/2009,09/01/2000 Surgical History Surgery Date Site/Laterality Comments TUBAL LIGATION 08/09/2022 PROCEDURE: HISTORICAL TUBAL LIGATION COSMETIC SURGERY 01/08/24 Medical History Medical History Date Comments Bipolar 2 disorder ([facility] V24, [facility] V28) DX:Bipolar 2 disorder ([facility]); COMMENT: Abilify counselor every two weeks, hospitalized at [facility] 07/18 due to cutting. Historical Medical DX DX:ADHD; C OMMENT: Focalin, Child and family guidance, 06/22. No meds, asx Chlamydia 03/2013 DX:Chlamydia; CO MMENT: treated wtih Zithromax 1 gram, neg testing 07/23 Constipation 05/08/2011 DX:Constipation Dysmenorrhea in the adolescent 02/03/2009 D X:Dysmenorrhea in the adolescent; COMMENT: resolved Iron deficiency anemia 07/25/2012 DX:Iron d eficiency anemia; COMMENT: 07/22Seen at [facility]. H/H 10.9/33.7 rdw 16.6, mcv 81.6. Started on iron 06/22. Normal labs Ovarian cyst 08/2013 DX:Ovarian cyst; COMMENT: Seen at [facility] Dental abscess 10/2015 DX:Dental absces s; [...] Maternal Grandfather Diabetes Maternal Grandmother type 2 Cancer Mother Tracee Gandara Cervical can cer Cervical cancer Mother Tracee Gandara 4 surgeri es, chemo and radiation diagnosed 2007 Migraines Mother Tracee Gandara No Known Problems Sister x 2 Asthma Son Ramesh Jovel Bipolar disorder Uncle Breast cancer Neg Hx Colon cancer Neg Hx Ovarian cancer Neg Hx Relation Name Status Comments Brother x 2 Alive Daughter Father Alive Maternal Grandfather Alive Maternal Grandmother Alive Mother Tracee Gandara Alive Paternal Grandfather unknown Other Paternal Grandmother unknown Other Sister x 2 Alive Son Ramesh Jovel Uncle Social History Tobacco Use Types Packs/Day Years Used Date Smoking Tobacco: Never Smokeless Tobacco: Never Tobacco Cessation:Counseling Given: Not Answered Alcohol Use Standard Drinks/Week Comments No 0 (1 standard drink = 0.6 oz pur e alcohol) Housing Instability Answer Date Recorde d Are you worried that in the next 2 months you may not have stable housing? No 01/04/2025 Food Access & Nutrition Answer Date Rec orded Do you have access to a vari ety of food including fruits and vegetables? Yes 01/04/2025 Access to Healthcare Answer Date Record ed Within the last 3 months, ho w many times did you visit the emergency department for your medical care? 0 01/04/2025 Health Literacy Answer Date Recorded How often do you need to hav e someone help you when you read instructions, pamphlets, or other written material from your doctor or pharmacy? Never 01/04/2025 Caregiver: How often do you need to have someone help you when you read instructions, pamphlets, or other written material from your doctor or pharmacy? Not on file 01/04/2025 Financial Risk Answer Date Recorded How hard is it for you to pa y for the very basics like food, housing, medical care, and air conditioning / heating? Not very hard 01/04/2025 Transportation Answer Date Recorded Has the lack of transportati on kept you from meetings, work, or from getting things needed for daily living? No Has the lack of transportati on kept you from medical appointments or from getting medications? No 01/04/2025 Social Isolation Answer Date Recorded How often do you feel lonely or isolated from th ose around you? Never 01/04/2025 Food Risk Answer Date Recorded Within the past 12 months we worried whether our food would run out before we got money to buy more. Never true 01/04/2025 Within the past 12 months th e food we bought just didn't last and we didn't have money to get more. Never true 01/04/2025 Dependent Care Answer Date Recorded Do you need help finding or paying for care for your loved ones. For example, child custody evaluator or elderly care for an older adult? No 01/04/2025 Education Answer Date Recorded Do you think completing more education or training, like finishing a GED, going to college, or learning a trade, would be helpful for you? N/A 01/04/2025 Employment and Income Answer Date Recor ded During the last four weeks, have you been actively looking for work? No 01/04/2025 Living Situation Answer Date Recorded What is your living situation? 0 01/04/2025 Comments Unknown Sex and Gender Information Value Date Recorded Sex Assigned at Female 09/13/2024 11:19 AM EST Legal Sex Female 2:11 AM EST Gender Identity Female 09/13/2024 11:19 AM EST Sexual Orientation Choose not to disclose 2023 11:19 AM EST Obstetrics History Last Filed Vital Signs Vital Sign Reading Time Taken Comments Blood Pressure 119/79 03/31/2025 9:05 AM EDT Pulse 84 03/31/2025 9:05 AM EDT Temperature 36.6 C (97.8 F) 01/18/2025 9:49 AM EDT Respiratory Rate - - Oxygen Saturation 99% 03/31/2025 9:05 AM EDT Inhaled Oxygen Concentration - - Weight 68 kg (150 lb) 06/01/2025 1:18 PM EDT Height 160 cm (5' 3 ) 03/31/2025 9:05 AM EDT Body Mass Index 26.57 03/31/2025 9:05 AM EDT Plan of Treatment Upcoming Encounters Date Type Department Care Team (Late st Contact Info) Description 07/20/2025 10:00 AM EDT Office Visit [facility] [place] [address] [place] [address] Lesia Rossi MD [address] [place] [address] 08/01/2025 10:00 AM EDT Office Visit [facility] [address] [place] [address] Maame Bahena PA [address] [place] [address] Health Maintenance Due Date Last Done Comments Pneumococcal Vaccine: Pediatrics (0 to 5 Years) and At-Risk Patients (6 to 49 Years) (2 of 2 - PPSV23) 08/20/2018 06/25/2018 Medicare Annual Wellness Visit 10/13/2022 COVID-19 Vaccine ( season) 2024 12/13/2021, 05/07/2021, 04/11/2021 Cervical Cancer Screening: Pap Smear 11/29/2024 11/29/2021, 04/29/2019 Influenza Vaccine (#1) 2025 , 08/24/2020, 10/10/2016, Additional history exists Social Influencers of Health Screening 01/04/2026 01/04/2025 Cholesterol Screening (Lipid Panel) 01/06/2030 01/06/2025 DTaP,Tdap,and Td Vaccines (11 - Td or Tdap) 05/16/2032 05/16/2022, 09/21/2020, 10/06/2017, Additional history exists Hepatitis B Vaccines Completed 05/27/1997, 1996, 1996 HIB Vaccines Completed 06/16/2006, 07/1998, 05/27/1997, Additional history exists IPV Vaccines Completed 06/16/2006, 08/11, 11/18/1997, Additional history exists Varicella Vaccines Completed 02/03/2009, 09/01/2000 HPV Vaccines Completed 07/10/2009, 01/09, 07/17/2007 Meningococcal ACWY Vaccine Completed 08/02/2014, MMR Vaccines Completed 09/21/2015, 08/11, 05/27/1997 Depression Screening Completed 01/04/2025 HIV Screening Completed 01/06/2025 Hepatitis C Screening Completed 01/06/2025 Hepatitis A Vaccines Aged Out No long er eligible based on patient's age to complete this topic Meningococcal B Vaccine Aged Out No l onger eligible based on patient's age to complete this topic RSV Immunization Patients Under 20 months Aged Out No longer eligible based on patient's age to complete this topic Procedures Procedure Name Priority Date/Time Associated Diagnosis Comments MR BRAIN WO AND W CONTRAST Routine 06/01/2025 1:20 PM EDT Chronic migraine with aura without status migrainosus, not intractable CBC WITH AUTO DIFFERENTIAL Routine 03/31/2025 10:03 AM EDT Chronic migraine with aura without status migrainosus, not intractable VITAMIN B12 Routine 03/31/2025 10:03 AM EDT Chronic migraine with aura without status migrainosus, not intractable VITAMIN D 25 HYDROXY Routine 03/31/2025 10:03 AM EDT Chronic migraine with aura without status migrainosus, not intractable Vitamin D deficiency CBC AND DIFFERENTIAL Routine 03/31/2025 10:03 AM EDT Chronic migraine with aura without status migrainosus, not intractable BORRELIA BURGDORFERI ANTIBODY Routine 03/31/2025 10:03 AM EDT Chronic migraine with aura without status migrainosus, not intractable HEPATITIS PANEL, ACUTE WITH REFLEX TO CONFIRMATION Routine 01/06/2025 10:23 AM EST Annual physical exam Iron deficiency anemia, unspecified iron deficiency anemia type Screening for STD (sexually transmitted disease) Encounter for screening for human immunodeficiency virus (HIV) Hypercholesteremia HIV 1, 2 ANTIBODY, P24 ANTIGEN WITH REFLEX TO DIFFERENTIATION Routine 01/06/2025 10:23 AM EST Screening for STD (sexually transmitted disease) Encounter for screening for human immunodeficiency virus (HIV) LIPID PANEL WITH REFLEX TO DIRECT LDL Routine 01/06/2025 10:23 AM EST Annual physical exam Iron deficiency anemia, unspecified iron deficiency anemia type Screening for STD (sexually transmitted disease) Encounter for screening for human immunodeficiency virus (HIV) Hypercholesteremia PAP SMEAR Routine 11/29/2021 from Last 3 Months or Most Recently Relevant to Health Maintenance Results * MR Brain wo and w Contrast (06/01/2025 1:20 PM EDT) Anatomical Region Laterality Modality Head and Neck Magnetic Resonan ce 06/01/2025 4:33 PM EDT Impressions 06/01/2025 4:39 PM EDT No acute findings or abnormal intracranial enhancement. Partially empty sella, a nonspecific finding which can be seen in the setting of intracranial hypertension. Mild nonspecific T2 hyperintense foci throughout the supratentorial white matter, predominantly frontal and subcortical in distribution. Differential includes early chronic small vessel ischemic change, sequelae of chronic migraine, and less likely demyelination. Several small, nonocclusive filling defects within the midportion of the superior sagittal sinus at the vertex, possibly related to the history of prior venous thrombosis. -------- FINAL REPORT -------- Dictated By: BENNETT SINCLAIR Dictated Date: 06/01/2025 16:33 ET Assigned Physician: BENNETT SINCLAIR Reviewed and Electronically Signed By: BENNETT SINCLAIR Signed Date: 06/01/2025 16:39 ET Workstation ID: [id number] Transcribed By: Self Edit Transcribed Date: 06/01/2025 16:33 ET Narrative 06/01/2025 4:39 PM EDT PROCEDURE: Brain MRI INDICATION: Severe headache TECHNIQUE: Multiplanar, multisequence MRI of the brain without and with contrast. 15 mL Dotarem injected intravenously without complication COMPARISON: No priors available. FINDINGS: No acute infarct, mass effect, or intracranial hemorrhage. Partially empty sella. Foramen magnum is normal. Mild nonspecific T2 hyperintense foci throughout the supratentorial white matter, predominantly frontal and subcortical in distribution. No abnormal intracranial enhancement or susceptibility artifact. Ventricles, sulci, and cisterns are normal in size and configuration. No hydrocephalus. Major intracranial arterial flow voids are within normal limits. Several nonocclusive filling defects are noted within the midportion of the superior sagittal sinus at the vertex. Major dural venous sinuses otherwise enhance normally with contrast. Scattered mucosal thickening seen throughout the sinuses. Mastoid air cells are clear. Orbits and extra cranial soft tissues are normal. Calvarium is normal. Procedure Note Bennett Sinclair MD - 06/01/2025 PROCEDURE: Brain MRI INDICATION: Severe headache TECHNIQUE: Multiplanar, multisequence MRI of the brain without and withcontrast. 15 mL Dotarem injected intravenously without complication COMPARISON: No priors available. FINDINGS: No acute infarct, mass effect, or intracranial hemorrhage. Partially empty sella. Foramen magnum is normal. Mild nonspecific T2 hyperintense foci throughout the supratentorial whitematter, predominantly frontal and subcortical in distribution. No abnormal intracranial enhancement or susceptibility artifact. Ventricles, sulci, and cisterns are normal in size and configuration. Nohydrocephalus. Major intracranial arterial flow voids are within normal limits. Severalnonocclusive filling defects are noted within the midportion of thesuperior sagittal sinus at the vertex. Major dural venous sinusesotherwise enhance normally with contrast. Scattered mucosal thickening seen throughout the sinuses. Mastoid aircells are clear. Orbits and extra cranial soft tissues are normal. Calvarium is normal. IMPRESSION: No acute findings or abnormal intracranial enhancement. Partially empty sella, a nonspecific finding which can be seen in thesetting of intracranial hypertension. Mild nonspecific T2 hyperintense foci throughout the supratentorial whitematter, predominantly frontal and subcortical in distribution.Differential includes early chronic small vessel ischemic change, sequelaeof chronic migraine, and less likely demyelination. Several small, nonocclusive filling defects within the midportion of thesuperior sagittal sinus at the vertex, possibly related to the history ofprior venous thrombosis. -------- FINAL REPORT -------- Dictated By: BENNETT SINCLAIR Dictated Date: 06/01/2025 16:33 ET Assigned Physician: BENNETT SINCLAIR Reviewed and Electronically Signed By: BENNETT SINCLAIR Signed Date: 06/01/2025 16:39 ET Workstation ID: [id number] Transcribed By: Self Edit Transcribed Date: 06/01/2025 16:33 ET Zofia Rodriguez MD IM MRI PROCEDURES Final Result * (ABNORMAL) CBC auto differential (03/31/2025 10:03 AM EDT) WBC 7.2 4.8 - 10.8 K/mcL LAB HEMETOLOGY METHOD 03/31/2025 2:25 PM EDT [facility] RBC 4.20 3.80 - 4.80 M/mcL LAB HEMETOLOGY METHOD 03/31/2025 2:25 PM EDT [facility] Hemoglobin 12.5 11.5 - 16.0 g/dL LAB HEMETOLOGY METHOD 03/31/2025 2:25 PM EDT [facility] Hematocrit 39.8 35.0 - 47.0 % LAB HEMETOLOGY METHOD 03/31/2025 2:25 PM EDT [facility] MCV 95.9 79.0 - 98.0 FL LAB HEMETOLOGY METHOD 03/31/2025 2:25 PM EDT [facility] MCH 30.1 27.0 - 32.0 pcg LAB HEMETOLOGY METHOD [facility] MCHC 31.4(L) 32.0 - 37.0 g/dL LAB HEMETOLOGY METHOD 03/31[facility]2025 [facility] RDW 15.0 11.0 - 15.0 % LAB HEMETOLOGY METHOD 03/31/2025 2:25 PM EDT [facility] Platelets 369 130 - 400 K/mcL LAB HEMETOLOGY METHOD 03/31/2025 2:25 PM EDT [facility] MPV 10.9 7.0 - 11.0 FL LAB HEMETOLOGY METHOD 03/31/2025 2:25 PM EDT [facility] NRBC 0.0 <1.0 % LAB HEMETOLOGY METHOD 03/31/2025 2:25 PM EDT [facility] NRBC Absolute 0.00 <0.10 K/mcL LAB HEMETOLOGY METHOD 03/31/2025 2:25 PM EDT [facility] Neutrophils Relative 69.9 % LAB HEMETOLOGY METHOD 03/31/2025 2:25 PM EDT [facility] Lymphocytes Relative 22.8 % LAB HEMETOLOGY METHOD 03/31/2025 2:25 PM EDT [facility] Monocytes Relative 5.8 % LAB HEMETOLOGY METHOD 03/31/2025 2:25 PM EDT [facility] Eosinophils Relative 0.6 % LAB HEMETOLOGY METHOD 03/31/2025 2:25 PM EDT [facility] Basophils Relative 0.6 % LAB HEMETOLOGY METHOD 03/31/2025 2:25 PM EDT [facility] Immature Granulocytes Relative 0.3 % LAB HEMETOLOGY METHOD 03/31/2025 2:25 PM EDT [facility] Neutrophils Absolute 5.07 1.50 - 7.00 K/mcL LAB HEMETOLOGY METHOD 03/31/2025 2:25 PM EDT [facility] Lymphocytes Absolute 1.65 1.00 - 5.00 K/mcL LAB HEMETOLOGY METHOD 03/31/2025 2:25 PM EDT [facility] Monocytes Absolute 0.42 0.20 - 1.00 K/mcL LAB HEMETOLOGY METHOD 03/31/2025 2:25 PM EDT [facility] Eosinophils Absolute 0.04 0.00 - 0.50 K/mcL LAB HEMETOLOGY METHOD 03/31/2025 2:25 PM EDT [facility] Basophils Absolute 0.04 0.00 - 0.20 K/mcL LAB HEMETOLOGY METHOD 03/31/2025 2:25 PM EDT [facility] Immature Granulocytes Absolute 0.02 0.00 - 0.03 K/[facility] LAB HEMETOLOGY METHOD 03/31/2025 2:25 PM EDT [facility] Blood Venous blood specimen / Unknown Venipuncture / Unknown 03/31/2025 10:03 AM EDT 03/31/2025 10:03 AM EDT us Zofia Rodriguez MD LAB BLOOD ORDERABLES Fin al Result Performing Organization Address [facility] de Phone Number [facility] [address] [place] [address], [place] [phone] * Borrelia burgdorferi antibody (03/31/2025 10:03 AM EDT) [facility] Lyme Ab Negative Negative LAB CHEMISTRY METHOD 03/31/2025 3:22 PM EDT [facility] Comment: No laboratory evidence of infection with B. burgdorferi (Lyme disease). Negative results may occur in patients recently infected (<=14 days) with B. burgdorferi. If recent infection is suspected, repeat testing on a new sample collected in 7- 14 days is recommended. Blood Venous blood specimen / Unknown Venipuncture / Unknown 03/31/2025 10:03 AM EDT 03/31/2025 10:03 AM EDT us Zofia Rodriguez MD LAB BLOOD ORDERABLES Fin al Result Performing Organization Address [facility]/ZIP Co de Phone Number [facility] [address] [place] [address], * (ABNORMAL) Vitamin D 25 hydroxy (03/31/2025 10:03 AM EDT) Pathologist [facility] Vit D, 25-Hydroxy 14.9(L) 30.0 - 80.0 ng/mL LAB CHEMISTRY METHOD 03/31/2025 9:15 PM EDT [facility] Blood Venous blood specimen / Unknown Venipuncture / Unknown 03/31/2025 10:03 AM EDT 03/31/2025 10:03 AM EDT us Zofia Rodriguez MD LAB BLOOD ORDERABLES Fin al Result [facility] [address] [place] [address], [place] [phone] * Vitamin B12 (03/31/2025 10:03 AM EDT) [facility] Vitamin B-12 473 250 - 900 pcg/mL LAB CHEMISTRY METHOD 04/01/2025 2:21 AM EDT [facility] Blood Venous blood specimen / Unknown Venipuncture / Unknown 03/31/2025 10:03 AM EDT 03/31/2025 10:03 AM EDT us Zofia Rodriguez MD LAB BLOOD ORDERABLES Fin al Result [facility] [address] [place] [address], [place] [phone] * HIV 1,2 antibody, p24 antigen with reflex to differentiation (01/06/2025 10:23 AM EST) [facility] HIV Combo AB/AG Negative Negative LAB CHEMISTRY METHOD 01/06/2025 5:38 PM EST [facility] Blood Venous blood specimen / Unknown Venipuncture / Unknown 01/06/2025 10:23 AM EST 01/06/2025 10:23 AM EST Narrative [facility] - 01/06/2025 5:38 PM EST This assay is a 4th generation assay allowing for earlier detection of HIV infection by detecting the presence of the HIV-1 p24 antigen as well as the traditional antibodies to HIV type 1 (including group O) and type 2. Use of a 4th generation assay is the current CDC recommendation for HIV screening. Lesia Rossi MD LAB BLOOD ORDERABLES Final Resul t [facility] [address] [place] [address], [place] [phone] * (ABNORMAL) Lipid panel with reflex to direct LDL (01/06/2025 10:23 AM EST) Cholesterol 166 0 - 200 mg/dL LAB CHEMISTRY METHOD 01/06/2025 4:24 PM EST [facility] Triglycerides 46 0 - 150 mg/dL LAB CHEMISTRY METHOD 01/06/2025 4:24 PM EST [facility] HDL 51 >=40 mg/dL LAB CHEMISTRY METHOD 01/06/2025 4:24 PM EST [facility] LDL Calculated 106(H) 0 - 100 mg/dL LAB CHEMISTRY METHOD 01/06/2025 4:24 PM EST [facility] VLDL Cholesterol Nathan 9.2 mg/dL LAB CHEMISTRY METHOD 01/06/2025 4:24 PM EST [facility] Non HDL Chol. (LDL+VLDL) 115 <145 mg/dL LAB CHEMISTRY METHOD 01/06/2025 4:24 PM EST [facility] Chol/HDL Ratio 3.3 0.0 - 4.4 LAB CHEMISTRY METHOD 01/06/2025 4:24 PM [facility] Blood Venous blood specimen / Unknown Venipuncture / Unknown 01/06/2025 10:23 AM EST 01/06/2025 10:23 AM EST Lesia Rossi MD LAB BLOOD ORDERABLES Final Resul t Performing Organization Address City/[facility]/ZIP Co de Phone Number [facility] [address] [place] [address], [place] [phone] * Hepatitis panel, acute with reflex to confirmation (01/06/2025 10:23 AM EST) Hepatitis B Surface Ag Negative Negative LAB CHEMISTRY METHOD 01/06/2025 7:49 PM EST [facility] Hepatitis A Antibody IgM Negative Negative LAB CHEMISTRY METHOD 01/06/2025 7:49 PM EST [facility] Hep B Core IgM Negative Negative LAB CHEMISTRY METHOD 01/06/2025 7:49 PM EST [facility] Hepatitis C Antibody Negative Negative LAB CHEMISTRY METHOD 01/06/2025 7:49 PM EST [facility] Blood Venous blood specimen / Unknown Venipuncture / Unknown 01/06/2025 10:23 AM EST 01/06/2025 10:23 AM EST Lesia Rossi MD LAB BLOOD ORDERABLES Final Resul t Performing Organization Address [facility] Co de Phone Number [facility] [address] [place] [address], [place] [phone] * Pap smear (11/29/2021) 11/29/2021 Narrative HISTORICAL TESTING LAB RESULTING AGENCY - 12/13/2021 3:45 PM EST [id number] THINPREP PAP, IMAGED: NEGATIVE FOR SQUAMOUS INTRAEPITHELIAL LESION AND MALIGNANCY . SHIFT IN JOSE M, SUGGESTIVE OF BACTERIAL VAGINOSIS. NOTE: THE PAP TEST IS A SCREENING TEST WITH AN INHERENT FALSE NEGATIVE RATE. AUTOMATED PRESCREENING OF ALL LIQUID BASED SPECIMENS IS PERFORMED BY THE THINPREP IMAGING SYSTEM UNLESS OTHERWISE STATED. ALICIA LYLE(ASCP) (CASE ELECTRONICALLY SIGNED 12 13 2021) ADEQUACY: SATISFACTORY ENDOCERVICAL/TRANSFORMATION ZONE COMPONENT ABSENT. SOURCE: THINPREP PAP HPV IF ASCUS, CERVICAL, IMAGED CLINICAL INFORMATION: HPV IF DIAGNOSIS OF ASCUS. -LMP 08/31/21, Z12.4 us Aliya Stanford CNM LAB CYTOLOGY ORDERABLES Final Result HISTORICAL TESTING LAB RESULTING AGENCY from Last 3 Months or Most Recently Relevant to Health Maintenance Insurance MEDICARE MEDICAID - [place] Care Teams Exercise Science Internship Relationship Specialty Start Date End Date Lesia Rossi MD [address] [place] [address] PCP - General Family Medicine 01/05/25
[2025-06-22] MEDS: Tetracaine HCl 0.5% Oph Sol 5 ML DROPS 3 DROP EYE-BOTH (21:24)
[2025-06-22 22:32] VITALS: BP 123/64; PULSE 62; RESP 18; TEMP 37.1; O2SAT 100
[2025-06-22 22:33] VITALS: BP 123/64; PULSE 62; RESP 18; TEMP 37.1; O2SAT 100
== END 2025-06-22 22:34 | disposition home or self-care (01) ==
PROVIDERS: Registered Nurse Emergency; Emergency Provider Emergency Medicine Emergency Medical Services; PCP Student in an Organized Health Care Education/Training Program
DX: B30.9 Viral conjunctivitis, unspecified (principal); H53.8 Other visual disturbances; R51.9 Headache, unspecified; R20.0 Anesthesia of skin; R22.1 Localized swelling, mass and lump, neck; R10.2 Pelvic and perineal pain; Z03.818 Encounter for observation for suspected exposure to other biological agents ruled out; Z79.899 Other long term (current) drug therapy
CPT/HCPCS: 80053; 84702; 85025; 87637; 99283; 99284